=== PATIENT | male | born 1995 | race Caucasian/White ===

== ENCOUNTER → 2017-07-09 13:00 | Outpatient (CLI) | payer MEDICAID, SELFPAY ==
[2017-07-09 14:34] LABS: Absolute Lymphocyte Count 1.61 X10^3/ul (0.83-4.51); Absolute Neutrophil Count 9.3 X10^3/uL (2.0-7.7); Basophil# 0.02 X10^3/uL; Basophil% 0.2 % (0-1); Eosinophil# 0.07 X10^3/uL; Eosinophils% 0.6 % (0-5); Hematocrit 45.9 % (40-54); Hemoglobin 15.6 g/dl (13.0-16.5); Lymphocyte # 1.61 X10^3/ul (4.0); Lymphocyte % 13.3 % (19-41); Mean Corpuscular Volume 91.3 fL (80-94); Mean Platelet Vol. 10.9 fl (6.2-12.0); Monocyte# 1.12 X10^3/uL; Monocyte% 9.2 % (0-10); Neutrophil % 76.5 % (47-70); Platelet Count 203 K/mm3 (150-450); RBC Distribution Width CV 12.5 % (11.6-14.6); RBC Distribution Width SD 41.1 fl (35.1-43.9); Red Blood Count 5.03 M/mm3 (4.6-6.2); White Blood Count 12.1 K/mm3 (4.4-11.0)
[2017-07-09 14:36] LABS: POSITIVE COUNT NO; POSITIVE DIFFERENTIAL NO; POSITIVE MORPHOLOGY NO
[2017-07-09 15:19] LABS: Anion Gap 7 (5-15); BUN 12 mg/dL (7-18); BUN/Creat Ratio 13.6 RATIO (10-20); Calcium,Total 8.7 mg/dL (8.5-10.1); Chloride 104 mmol/L (98-107); Cholesterol 165 mg/dL (200); Creatinine, Serum 0.88 mg/dL (0.70-1.30); EST Glomerular Filtration Rate 115 mL/min (>60); Est Glom Filt Rate - Afr Amer 139 mL/min (>60); Glucose 65 mg/dL (74-106); High Density Lipoprotein 43 mg/dL; Potassium 3.7 mmol/L (3.5-5.1); Sodium Level 141 mmol/L (136-145); Thyroid Stim Hormone (TSH) 1.19 uIU/mL (0.358-3.74); Triglycerides 343 mg/dL; Very Low Density Lipoprotein 69 mg/dL (5-40)
== END ==
PROVIDERS: Family Provider Family Medicine; PCP Family Medicine
DX: Z79.899 Other long term (current) drug therapy (principal)
CPT/HCPCS: 36415; 80048; 80061; 84443; 85025

== ENCOUNTER 2017-09-25 01:01 | Emergency (ER) | payer MEDICAID, SELFPAY ==
[2017-09-25 01:02] VITALS: BP 133/86; PULSE 100; RESP 22; TEMP 37.2; O2SAT 93; BMI 24.7
--- NOTE | 2017-09-25 01:12 | ED.RN ---
[id number] - MOM JON'S PHONE NUMBER. CALLED, NO ANSWER, MAILBOX FULL. WILL TRY AGAIN LATER.
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
[2017-09-25] MEDS: Morphine 4 MG/ML Syringe IM (01:36)
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
[2017-09-25 02:57] VITALS: BP 121/86; PULSE 97; RESP 16; O2SAT 97
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
[2017-09-25] MEDS: HYDROmorphone 0.5 MG/0.5 ML SYRINGE IV (03:06)
[2017-09-25 03:09] VITALS: BP 126/80; PULSE 90; RESP 16; O2SAT 98
== END 2017-09-25 03:53 | disposition home or self-care (01) ==
PROVIDERS: Emergency Provider Emergency Medicine; Family Provider Family Medicine; PCP Family Medicine
DX: S06.0X9A Concussion with loss of consciousness of unspecified duration, initial encounter (principal); T07.XXXA Unspecified multiple injuries, initial encounter; V89.2XXA Person injured in unspecified motor-vehicle accident, traffic, initial encounter; Y93.9 Activity, unspecified; Y92.89 Other specified places as the place of occurrence of the external cause; Y99.9 Unspecified external cause status
CPT/HCPCS: 70450; 71045; 72125; 96372; 96374; 99284; A4216

== ENCOUNTER 2018-12-30 13:07 | Emergency (ER) | payer MEDICAID, SELFPAY ==
[2018-12-30 13:08] VITALS: BP 116/61; PULSE 81; RESP 16; TEMP 36.9; O2SAT 99; BMI 21.5
--- NOTE | 2018-12-30 14:00 | ED.RN ---
pt states his ride has an appt and he is unable to wait any longer. states he may come back to be seen later. pt not upset at time of leaving.
== END 2018-12-30 14:00 ==
LOC: ED 16:12
PROVIDERS: Emergency Provider Emergency Medicine; Family Provider Family Medicine; PCP Family Medicine
DX: M54.9 Dorsalgia, unspecified (principal)

== ENCOUNTER 2019-02-17 13:37 | Emergency (ER) | payer BC, MEDICAID, SELFPAY ==
[2019-02-17 13:37] VITALS: BP 114/53; PULSE 92; RESP 16; TEMP 36.4; O2SAT 100; BMI 22.8
--- NOTE | 2019-02-17 14:12 | ED.VISSUMM ---
- ER Visit Summary Date of Service: 02/17/19 Chief Complaint: HIV exposure History of Present Illness: The patient is a 23 M with HIV exposure. He is HIV negative as far as he knows. He was exposed less than 2 days ago from vaginal intercourse. He is not having any symptoms or problems. He denies significant medical history. Physical Examination: Afebrile and vital signs unremarkable. Exam unremarkable. Test Results: HIV test pending. Emergency Department Course and Treatment: HIV testing was performed. Patient will be treated with postexposure prophylaxis at his request for 28 days. Follow-up with the clinic as an outpatient. Return for any issues or complications. Treatment Plan: As above Disposition: Discharge Impression: 1. HIV exposure This note was generated with [employer] - is now [employer] dictation software. It may contain incorrect words, spelling, and punctuation that were not noted in review of the chart prior to signing
--- NOTE | 2019-02-17 14:14 | ED.DEP ---
ED Disposition - Plan for ED Patient: Instructions: Understanding HIV and AIDS Prescriptions: Raltegravir Potassium [Isentress] 400 mg PO BID #56 tab Prescription Printed Emtricitabine/Tenofovir (Tdf) [Truvada 200 mg-300 mg Tablet] 1 ea PO DAILY #28 tab Prescription Printed Referrals: Hollie Cueva [NON-STAFF] -
[2019-02-17] MEDS: EMTRICITABINE/TENOFOVIR 1 TABLET TABLET PO (14:37)
[2019-02-17] MEDS: RALTEGRAVIR POTASSIUM 400 MG TABLET PO (14:37)
[2019-02-17 16:43] LABS: HIV - WCH Non-Reactive (Nonreactive)
== END 2019-02-17 14:41 | disposition home or self-care (01) ==
LOC: ED 14:17
PROVIDERS: Emergency Provider Emergency Medicine
DX: Z20.6 Contact with and (suspected) exposure to human immunodeficiency virus [HIV] (principal)
CPT/HCPCS: 86703; 99283

== ENCOUNTER 2019-05-10 14:25 | Emergency (ER) | payer MEDICAID, SELFPAY ==
[2019-05-10 14:26] VITALS: BP 128/92; PULSE 93; RESP 16; TEMP 36.7; O2SAT 98; BMI 23.4
[2019-05-10] MEDS: 0.9% Normal Saline 1,000 ML 1000 ML IV (15:20)
[2019-05-10] MEDS: Morphine 2 MG/ML Syringe IV (15:21)
[2019-05-10] MEDS: Ondansetron 4 MG/2 ML Vial IV (15:21)
[2019-05-10 15:23] LABS: Absolute Lymphocyte Count 1.62 X10^3/uL (0.83-4.51); Absolute Neutrophil Count 3.7 X10^3/uL (2.0-7.7); Basophil# 0.02 X10^3/uL; Basophil% 0.3 % (0-1); Eosinophil# 0.04 X10^3/uL; Eosinophils% 0.7 % (0-5); Hematocrit 45.8 % (40-54); Hemoglobin 15.4 g/dL (13.0-16.5); Lymphocyte # 1.62 X10^3/ul (4.0); Lymphocyte % 27.7 % (19-41); Mean Corp Hgb Conc 33.6 g/dL (32-36); Mean Corpuscular Hgb 30.1 pg (27.0-32.0); Mean Corpuscular Volume 89.6 fL (80-94); Mean Platelet Vol. 10.7 fl (6.2-12.0); Monocyte# 0.47 X10^3/uL; NRBC Flagged by Analyzer 0 % (0-5); Neutrophil # 3.68 X10^3/uL (2.7-7.7); Neutrophil % 63.1 % (47-70); Platelet Count 195 K/mm3 (150-450); RBC Distribution Width CV 12.3 % (11.6-14.6); RBC Distribution Width SD 40.8 fl (35.1-43.9); Red Blood Count 5.11 M/mm3 (4.6-6.2); White Blood Count 5.8 K/mm3 (4.4-11.0)
[2019-05-10 15:35] LABS: Lipase 70 U/L (73-393)
--- NOTE | 2019-05-10 15:46 | ED.DCSUM_ITS ---
- ER Visit Summary Date of Service: 05/10/19 Chief Complaint: Hematemesis History of Present Illness: The patient is a 23 M who presents with hematemesis that began today. Patient states that he had a coughing episode and then started vomiting. Patient states he vomited a lot of blood. Patient states h e has pain over the epigastric and left upper quadrant area.Patient describes the pain as sharp. Patient denies any diarrhea, melena, or hematochezia. Patient denies any dysuria or hematuria. Patient also admits to headache and some generalized weakness. Patient admits to a cough with some shortness of breath. Patient states he does have pain up into the left side of his chest and into his left arm. Patient denies any cardiac risk factors. Physical Examination: Vital signs are stable. Patient is afebrile. Patient is in no acute distress. Oral mucosa is pink and moist. Neck is supple. Trachea is midline. There is no JVD. Heart was regular rate and rhythm. Lungs are clear and equal bilaterally. Abdomen is soft. Bowel sounds are normal. There is some mild epigastric and left upper quadrant tenderness. There is no rebound or guarding noted. Cranial nerves II through XII are intact. There are no focal motor or sensory deficits noted. Test Results: CBC and comprehensive metabolic profile were normal. Stool was negative for occult blood. EKG showed normal sinus rhythm with a rate of 83. There are no acute ST or T wave changes. PA and lateral chest x-ray was obtained. There is no acute cardiopulmonary process. This was interpreted by the radiologist and myself. Emergency Department Course and Treatment: Patient was given morphine and Zofran initially. Patient was advised of his lab results. Patient requested an HIV test because he had 1 in February and was told he needed to have it repeated in 3 months. Patient states that in February he was referred to the emergency department from the health department. This was ordered and is pending. Patient was given a prescription for Prilosec. Patient was instructed to follow-up with his primary care physician in 3 to 5 days. Patient understood and was agreeable with the plan. All questions were answered. Disposition: Discharge home Impression: Hematemesis This note was generated with [employer] dictation software. It may contain incorrect words, spelling, and punctuation that were not noted in review of the chart prior to signing ED Disposition - Plan for ED Patient: Disposition: Home or Assisted Living Diagnosis: Hematemesis of unknown etiology Instructions: GI BLEED, Upper (Stable) Prescriptions: Omeprazole [Prilosec] 20 mg PO DAILY #30 cap Prescription Printed Referrals: Care Physician,No Primary [Primary Care Provider] - Hollie Cueva [NON-STAFF] - 5-7 Days
--- NOTE | 2019-05-10 15:49 | EKG12_ITS ---
Test Reason : GI BLEED Blood Pressure : / mmHG Vent. Rate : 083 BPM Atrial Rate : 083 BPM P-R Int : 150 ms QRS Dur : 082 ms QT Int : 354 ms P-R-T Axes : 069 094 023 degrees QTc Int : 415 ms Normal sinus rhythm Rightward axis Borderline ECG Confirmed by HARPER ROLLINS, MARTINEZ ([id number]), news editor ROSARIO YO ([id number]) on 05/12/2019 1:13:18 PM Referred By: MECHELLE Confirmed By:SREEDHAR SALEEM MD
--- NOTE | 2019-05-10 16:05 | RAD_ITS ---
STUDY: X-RAY CHEST REASON FOR EXAM: Male, 23 years old. GI BLEED -- PT ARRIVES WITH A and quot;LOT OF BLOOD and quot; IN HIS EMESIS TECHNIQUE: PA and lateral COMPARISON: None. FINDINGS: There is less than optimal inspiratory effort however the lungs are clear. There is no demonstrated pleural abnormality. Normal size heart. Normal mediastinum and faustina. Normal visualized pulmonary arteries. Normal visualized aortic arch and descending thoracic aorta. Normal visualized thoracic spine. Normal visualized ribs, clavicles, and shoulders. There is no demonstrated abnormality of the visualized soft tissue structures of the upper abdomen. RAD/Chest PA and Lateral IMPRESSION: Diminished inspiratory effort. No acute disease Electronically Signed: Sincere Linda MD at 16:28 EST , Service support ,
[2019-05-10 16:13] LABS: ALB/GLOB Ratio 1.2 RATIO (0.9-2.4); AST(SGOT) 7 U/L (15-37); Alanine Aminotransfer ALT/SGPT 19 U/L (16-61); Albumin, Serum 4.2 g/dL (3.2-5.0); Alkaline Phosphatase 86 U/L (45-117); Anion Gap 4 (5-15); BUN 12 mg/dL (7-18); BUN/Creat Ratio 12.8 RATIO (10-20); Calcium,Total 9.1 mg/dL (8.5-10.1); Chloride 106 mmol/L (98-107); Creatinine, Serum 0.94 mg/dL (0.70-1.30); EST Glomerular Filtration Rate 105 mL/min (>60); Est Glom Filt Rate - Afr Amer 128 mL/min (>60); Globulin 3.4 g/dL (2.2-4.2); Glucose 78 mg/dL (74-106); Potassium 4.1 mmol/L (3.5-5.1); Protein, Total 7.6 g/dL (6.4-8.2); Sodium Level 141 mmol/L (136-145)
[2019-05-10 16:54] VITALS: BP 102/59; PULSE 82; RESP 18
[2019-05-10 18:24] LABS: HIV - WCH Non-Reactive (Nonreactive)
== END 2019-05-10 16:55 | disposition home or self-care (01) ==
PROVIDERS: Emergency Provider Emergency Medicine
DX: K92.0 Hematemesis (principal); F31.9 Bipolar disorder, unspecified; Z72.0 Tobacco use; Z79.899 Other long term (current) drug therapy
CPT/HCPCS: 71046; 80053; 82274; 83690; 85025; 86703; 93005; 96361; 96374; 96375; 99285; J7030; J2405

== ENCOUNTER 2019-06-21 17:49 | Emergency (ER) | payer MEDICAID, SELFPAY ==
[2019-06-21 17:50] VITALS: BP 130/83; PULSE 110; RESP 20; TEMP 37.2; O2SAT 95; BMI 22.7
--- NOTE | 2019-06-21 18:43 | ED.VIS.GEN ---
History of Present Illness Chief Complaint: General Illness Detail of Chief Complaint: Headache, sinus pressure, short of breath Informant: Patient Onset: Weeks Context: Gradual Onset Current Severity: Moderate Maximum Severity: Moderate Narrative: Patient presents with a 1/2-week history of gradual onset URI symptoms. He states today seems to be worse. He complains of facial pain and headache. Has had some nausea and some dry heaves. He does have mild cough. He does not know if he had a fever. Patient states he has trouble breathing through his nose and has been breathing through his mouth. He has not taken anything today for his symptoms. Past Medical History - Allergies and Home Meds Allergies/Adverse Reactions: Allergies Penicillins Allergy (Verified 06/21/19 17:51) Hives Primary Care Physician: Care Physician,No Primary [Primary Care Provider] - Past Medical History: - - Psychiatric history Smoking Status: Current every day smoker Review of Systems General: Denies: Chills Eyes: Denies: Visual changes - bilaterally ENT: Reports: - - Facial pressure and head congestion Cardiovascular: Denies: Chest pain Respiratory: Reports: Dyspnea, Cough. Denies: Sputum Gastrointestinal: Reports: Nausea, Vomiting - Dry heaves. Denies: Abdominal pain Genitourinary: Denies: Dysuria Musculoskeletal: Denies: Extremity Pain Skin: Denies: Rash Neurological: Reports: Headache. Denies: Weakness, Parasthesia Allergy: Denies: Uticaria Physical Exam Vital Signs/Narrative: Vital Signs Temp Pulse Resp BP Pulse Ox 06/21/19 17:50 98.9 F 110 H 20 H 130/83 H 95 Inital Vital Signs reviewed: Yes General: Well nourished, Well developed Head: Normocephalic, Atraumatic Eyes: Perrl, EOMI ENT: Moist mucous membranes, TM's clear, - - Tenderness palpation over the frontal and maxillary sinuses bilaterally. Neck: - - No meningismus Cardiovascular: Regular rate, Regular rhythm Respiratory: No distress, CTA bilaterally Abdomen: Soft, Nontender Extremities: Nontender Skin: Normal color Neurological: Alert, Oriented x3, Normal Strength, Normal Sensation Psychological: Normal affect Diagnostic/Tx/Re-eval - Medical Decision Making Patient was given Toradol, Reglan, Benadryl, and IV fluids. He was given a dose of p.o. Zithromax. On repeat evaluation he is resting comfortably. Headache is improving. He will be given 4 additional days of Zithromax for sinusitis. ED Disposition - Plan for ED Patient: Disposition: Home or Assisted Living Diagnosis: Sinusitis Instructions: SINUSITIS, Abx Tx Prescriptions: Azithromycin [Zithromax] 250 mg PO DAILY #4 tab Transmission Status: Pending to [facility] Referrals: Hermann Patterson DO [STAFF PHYSICIAN] - As Needed
[2019-06-21 19:04] VITALS: BP 126/91; PULSE 82; O2SAT 99
[2019-06-21] MEDS: Ketorolac 30 MG/ML Syringe IV (19:11)
[2019-06-21] MEDS: 0.9% Normal Saline 1,000 ML 1000 ML IV (19:11)
[2019-06-21] MEDS: DiphenhydrAMINE 50 MG/ML Syringe 25 MG IV (19:12)
[2019-06-21] MEDS: Metoclopramide 10 MG/2 ML Vial IV (19:13)
[2019-06-21] MEDS: Azithromycin 250 MG Tablet 500 MG PO (20:23)
[2019-06-21 20:52] VITALS: BP 127/57; PULSE 80; RESP 16; O2SAT 98
== END 2019-06-21 20:54 | disposition home or self-care (01) ==
PROVIDERS: Emergency Provider Emergency Medicine
DX: J32.1 Chronic frontal sinusitis (principal); J32.0 Chronic maxillary sinusitis; F17.200 Nicotine dependence, unspecified, uncomplicated
CPT/HCPCS: 96361; 96374; 96375; 99284; J7030; A4216

== ENCOUNTER 2020-12-11 22:20 | Emergency (ER) | payer MEDICAID, SELFPAY ==
[2020-12-11 22:21] VITALS: BP 129/94; PULSE 81; RESP 16; TEMP 36.3; O2SAT 97; BMI 23.6
--- NOTE | 2020-12-11 22:50 | EX.ED.UPPERE ---
HPI History of Present Illness Chief Complaint: Laceration Informant: patient Occured/Mechanism Mechanism/Context: Yes other see comment below Comment: Accidentally cut with a kitchen knife while cutting green onions Onset/Context/Timing Context: Sudden Onset Timing: Continuous Quality of Pain: - (sore) Location: Left index finger tip Current Severity: Mild Maximum Severity: Moderate Worsened by: Palpation Relieved by: Leaving alone Associated Symptoms Associated Symptoms: Negative for Parasthesia, Weakness and Loss of Funtion Narrative Narrative: [id number] male accidentally cut his finger using a kitchen knife. Tetanus Immunization: 5-10 years [facility] Medical History Anxiety Bipolar 1 disorder Manic bipolar I disorder PTSD (post-traumatic stress disorder) Home Medications quetiapine 300 - 400 mg PO QHS PRN PRN 09/25/17 [History Last Taken Unknown] bupropion HCl 150 mg PO DAILY 12/11/20 [History Last Taken Unknown] buspirone 10 mg PO DAILY 12/11/20 [History Last Taken Unknown] divalproex 500 mg PO BID 12/11/20 [History Last Taken Unknown] Allergy/AdvReac Type Severity Reaction Status Date / Time Penicillins Allergy Hives Verified 06/21/19 17:51 Social History Smoking Status: Current every day smoker tobacco type: e-cigarettes ROS ROS ED Constitutional Constitutional ED: Denies chills or fever(s) Musculoskeletal Musculoskeletal: Reports extremity pain; Denies neck pain Integumentary Reports as per HPI and wounds; Denies Abrasions or rash Neurologic Neurologic: Denies paresthesias or weakness EXAM Physical Exam Const Vital Signs: 12/11/20 22:21 Temperature 97.3 F L Temperature Source Temporal Pulse Rate 81 Respiratory Rate 16 Blood Pressure 129/94 H Blood Pressure Mean 105 Pulse Ox 97 Oxygen Delivery Method Room Air Positive well nourished and well developed General Appearance ED: well developed and NAD Neck full ROM and supple Back/Spine normal ROM and normal to inspection Extremity Extremity Narrative: Mildly tender at left index fingertip avulsion, no limited range of motion. FDS, FDP, extensor all intact. No other injuries. Neuro oriented x3, no focal motor deficits and no sensory deficits noted Sensorium / Orientation: alert Psych mental status grossly normal and thought process normal Skin Skin Narrative: Epidermal skin avulsion at the left fingertip, radial aspect including part of the nail in the distal aspect of the nailbed but no lacerations to repair. Dermis intact. Evidence of recent bleeding, no active. Rashes: no rashes MDM MDM MDM Narrative Medical decision making narrative: This is an epidermal avulsion injury, there is no laceration to repair. Patient was reassured, his wound was cleansed and dressed with bacitracin, he was given appropriate discharge instructions. Discharge Plan Triage Chief Complaint: Laceration ED Provider: Carlos Eduardo Hernandez Dx/Rx/DC Orders Clinical Impression: Avulsion of skin of index finger Instructions: ED Skin Avulsion Prescriptions: No Action quetiapine 100 MG tablet 300 - 400 mg PO QHS PRN PRN (Reason: Sleep) RF: 0 divalproex 500 mg tablet,delayed release (DR/EC) 500 mg PO BID RF: 0 buspirone 10 mg tablet 10 mg PO DAILY RF: 0 bupropion HCl 150 mg tablet extended release 24 hr 150 mg PO DAILY RF: 0 Primary Care Provider: Care Physician,No Primary Referrals: Hollie Cueva [NON-STAFF] - As Needed Care Physician,No Primary [Primary Care Provider] - Activity Restrictions/Additional Instructions: keep covered w/ antibiotic ointment such as Neosporin until no more seeping/oozing of fluid or blood Disposition Disposition: Home, Self Care
== END 2020-12-11 23:18 | disposition home or self-care (01) ==
LOC: ED 23:06
PROVIDERS: Emergency Provider Emergency Medicine
DX: S61.301A Unspecified open wound of left index finger with damage to nail, initial encounter (principal); F41.9 Anxiety disorder, unspecified; F31.9 Bipolar disorder, unspecified; F17.290 Nicotine dependence, other tobacco product, uncomplicated; Z79.899 Other long term (current) drug therapy; W26.0XXA Contact with knife, initial encounter; Y93.G1 Activity, food preparation and clean up; Y92.000 Kitchen of unspecified non-institutional (private) residence as the place of occurrence of the external cause; Y99.8 Other external cause status
CPT/HCPCS: 99282

== ENCOUNTER → 2020-12-12 | Outpatient (CLI) | payer MEDICAID, SELFPAY | END | disposition home or self-care (01) | LOC: LABSPEC 16:30 | PROVIDERS: Visit Provider Physician Assistant | DX: U07.1 COVID-19 (principal) | CPT/HCPCS: 87635; U0005; U0003 ==

== ENCOUNTER 2021-05-07 02:40 | Emergency (ER) | payer MEDICAID, SELFPAY ==
[2021-05-07 02:41] VITALS: BP 151/83; PULSE 95; RESP 17; TEMP 36.7; O2SAT 100; BMI 23.4
--- NOTE | 2021-05-07 03:03 | RAD_ITS ---
STUDY: X-RAY CHEST REASON FOR EXAM: Male, 25 years old. Chest pain. TECHNIQUE: PA and lateral COMPARISON: 05/10/2019 CXR FINDINGS: No apparent pneumothorax, pneumonia, pleural effusion, or edema. Cardiac silhouette, faustina and mediastinal contours are within normal limits. No acute osseous abnormality. No evidence of free air under the diaphragm. RAD/Chest PA and Lateral IMPRESSION: Negative chest radiograph. Electronically Signed: Steve Montano MD at 3:47 EST Reading Location ID and State: [address] [place] Tel , Service support ,
--- NOTE | 2021-05-07 03:03 | EKG12_ITS ---
Test Reason : CP Blood Pressure : / mmHG Vent. Rate : 073 BPM Atrial Rate : 073 BPM P-R Int : 168 ms QRS Dur : 088 ms QT Int : 368 ms P-R-T Axes : 066 044 041 degrees QTc Int : 405 ms Normal sinus rhythm Normal ECG Confirmed by MIRA ERAZO MD ([id number]), newspaper photo editor GISSEL AGUIRRE ([id number]) on 05/08/2021 9:09:09 AM Referred By: RAQUEL Confirmed By:MIRA ERAZO MD
[2021-05-07 03:16] LABS: Absolute Lymphocyte Count 4.15 X10^3/uL (0.83-4.51); Absolute Neutrophil Count 5.9 X10^3/uL (2.0-7.7); Basophil# 0.04 X10^3/uL; Basophil% 0.4 % (0-1); Eosinophils% 0.9 % (0-5); Hematocrit 44.3 % (40-54); Hemoglobin 14.9 g/dL (13.0-16.5); Lymphocyte # 4.15 X10^3/ul (0.83-4.51); Lymphocyte % 37.2 % (19-41); Mean Corp Hgb Conc 33.6 g/dL (32-36); Mean Corpuscular Hgb 29.9 pg (27.0-32.0); Mean Platelet Vol. 11.1 fl (6.2-12.0); Monocyte# 0.94 X10^3/uL; Monocyte% 8.4 % (0-10); NRBC Flagged by Analyzer 0 % (0-5); Neutrophil # 5.92 X10^3/uL (2.7-7.7); Neutrophil % 52.9 % (47-70); Platelet Count 251 K/mm3 (150-450); RBC Distribution Width CV 11.9 % (11.6-14.6); RBC Distribution Width SD 38.5 fl (35.1-43.9); Red Blood Count 4.98 M/mm3 (4.6-6.2); White Blood Count 11.2 K/mm3 (4.4-11.0)
[2021-05-07 03:32] LABS: Anion Gap 10 (5-15); BUN 11 mg/dL (7-18); BUN/Creat Ratio 10.6 RATIO (10-20); Calcium,Total 9.1 mg/dL (8.5-10.1); Chloride 104 mmol/L (98-107); Creatinine, Serum 1.04 mg/dL (0.70-1.30); EST Glomerular Filtration Rate 92 mL/min (>60); Est Glom Filt Rate - Afr Amer 112 mL/min (>60); Estimated Creatinine Clearance 112.11 ml/min; Glucose 102 mg/dL (74-106); Magnesium 2.2 mg/dL (1.6-2.6); Potassium 3.1 mmol/L (3.5-5.1); Sodium Level 141 mmol/L (136-145); Troponin-I HS < 3 pg/mL (3.0-78.0)
--- NOTE | 2021-05-07 04:01 | EX.ED.DYSGE1 ---
HPI History of Present Illness Chief Complaint: Chest Pain Narrative Narrative: Patient is a 25-year-old male who states he has been feeling palpitations for the past week intermittently. He states with this he has noticed some left-sided chest pain. He denies any trauma or excessive activity prior to the pain beginning. He denies any recent travel or surgery or history of DVT/PE. He does admit to smoking and states he does marijuana but denies any other illicit drug. He states that he feels like his symptoms have slowly been worsening and secondary to his presents for evaluation [facility] Medical History Anxiety Bipolar 1 disorder Manic bipolar I disorder PTSD (post-traumatic stress disorder) Home Medications quetiapine [Seroquel] 200 mg PO QHS PRN PRN 09/25/17 [History Last Taken Unknown] Allergy/AdvReac Type Severity Reaction Status Date / Time Penicillins Allergy Hives Verified 05/07/21 02:46 Social History Smoking Status: Current every day smoker tobacco type: e-cigarettes ROS ROS ED Constitutional Constitutional ED: Denies chills or fever(s) ENT ENT ED: Denies sore throat Cardiovascular Cardiovascular: Reports chest pain, palpitations and racing heartbeat Respiratory/Chest Respiratory/Chest: Denies cough or dyspnea Gastrointestinal Gastrointestinal: Denies abdominal pain, diarrhea, nausea or vomiting Genitourinary Genitourinary ED: Denies dysuria Musculoskeletal Musculoskeletal: Denies myalgias Integumentary Denies rash Neurologic Neurologic: Denies headache(s) Hematologic/Lymphatic Hematologic/Lymphatic: Denies easy bleeding or easy bruising EXAM Physical Exam Const Vital Signs: 05/07/21 02:41 Temperature 98.1 F Temperature Source Oral Pulse Rate 95 Respiratory Rate 17 Blood Pressure 151/83 H Blood Pressure Mean 105 Pulse Ox 100 Oxygen Delivery Method Room Air Positive well nourished and well developed General Appearance ED: well developed HEENT Reports moist mucous membranes Eyes PERRL and EOMs intact bilaterally Neck supple and no JVD Chest Wall Chest Narrative: There is reproducible left anterior chest wall pain with palpation rib regions 5-9 that the patient states is the same pain he has been experiencing. No overlying soft tissue changes to suggest trauma or infection no bony deformity or crepitance Resp normal respiratory effort and clear to auscultation bilaterally Cardio regular rate and regular rhythm Rate: other Other Details: Radial pulses are plus 2 out of 4 bilaterally are equal and symmetric GI normal to inspection, nondistended, normoactive bowel sounds, non-tender, non-distended and no masses Auscultation: normoactive bowel sounds Palpation: soft Extremity normal to inspection Extremity Narrative: No edema no pitting edema negative Homans' sign bilaterally Neuro oriented x3 and CN's II-XII intact bilaterally Sensorium / Orientation: alert Motor Exam: strength 5/5 throughout Psych mental status grossly normal Skin no rashes or lesions noted MDM MDM MDM Narrative Medical decision making narrative: Patient presented to the ER in no acute distress with stable vitals and is low risk for cardiac disease. He reported palpitations prior to his pain beginning and also had reproducible pain on palpation. With his report of palpitations and chest pain I did elect to perform a basic cardiac work-up. Labs revealed no clinically significant findings. EKG is sinus rhythm. As patient smokes there is concern his chest pain could be lung and pathology so a two-view chest x-ray was ordered which was normal. 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 On reevaluation the patient reports he is feeling better and therefore at this time with resolution of symptoms and negative work-up as well as the fact he is low risk for cardiac disease he will be discharged at this time Lab Data Attestation: I reviewed the patient's lab results. Labs: Laboratory Results - last 24 hr 05/07/21 05/07/21 02:45 02:45 WBC 11.2 H RBC 4.98 Hgb 14.9 Hct 44.3 MCV 89.0 MCH 29.9 MCHC 33.6 RDW Std Deviation 38.5 RDW Coeff of Ryan 11.9 Plt Count 251 MPV 11.1 Immature Gran % (Auto) 0.200 Neut % (Auto) 52.9 Lymph % (Auto) 37.2 [place] % (Auto) 8.4 Eos % (Auto) 0.9 Baso % (Auto) 0.4 Absolute Neuts (auto) 5.9 Absolute Lymphs (auto) 4.15 Nucleated RBC % 0 Sodium 141 Potassium 3.1 L Chloride 104 Carbon Dioxide 27.0 Anion Gap 10 BUN 11 Creatinine 1.04 Estim Creat Clear Calc 112.11 Est GFR (MDRD) Af Amer 112 Est GFR (MDRD) Non-Af 92 BUN/Creatinine Ratio 10.6 Glucose 102 Calcium 9.1 Magnesium 2.2 Troponin I High Sens < 3 L Radiography Diagnostic Testing: Clinical Impression(s) from Imaging Studies Chest X-Ray 05/07/21 03:03 IMPRESSION: Negative chest radiograph. Electronically Signed: Steve Montano MD at 3:47 EST Reading Location ID and State: [facility] / [place] Tel , Service support , Discharge Plan Triage Chief Complaint: Chest Pain ED Provider: Chago Landers Dx/Rx/DC Orders Clinical Impression: Heart palpitations, Chest wall pain Instructions: ED Chest Pain, Noncardiac, ED Palpitations Prescriptions: No Action quetiapine [Seroquel] 100 MG tablet 200 mg PO QHS PRN PRN (Reason: Sleep) RF: 0 Primary Care Provider: Care Physician,No Primary Referrals: Rafael Montejo MD [STAFF PHYSICIAN] - 1 Week if not improving Care Physician,No Primary [Primary Care Provider] - Activity Restrictions/Additional Instructions: Please discuss a Holter monitor with your family doctor if your symptoms of palpitations persist Disposition Disposition: Home, Self Care
[2021-05-07 04:07] VITALS: BP 107/70; PULSE 72; RESP 18; O2SAT 95
== END 2021-05-07 04:11 | disposition home or self-care (01) ==
PROVIDERS: Emergency Provider Emergency Medicine; Visit Provider Emergency Medicine
DX: R07.89 Other chest pain (principal); F31.9 Bipolar disorder, unspecified; F43.10 Post-traumatic stress disorder, unspecified; F41.9 Anxiety disorder, unspecified; R00.2 Palpitations; F17.290 Nicotine dependence, other tobacco product, uncomplicated; Z79.899 Other long term (current) drug therapy
CPT/HCPCS: 71046; 80048; 83735; 84484; 85025; 93005; 99283; A4216

== ENCOUNTER 2021-06-28 03:10 | Emergency (ER) | payer MEDICAID, SELFPAY ==
[2021-06-28 03:10] VITALS: BP 161/127; PULSE 155; RESP 18; TEMP 36.4; O2SAT 98; BMI 21.7
--- NOTE | 2021-06-28 03:18 | EKG12_ITS ---
Test Reason : CP Blood Pressure : / mmHG Vent. Rate : 135 BPM Atrial Rate : 135 BPM P-R Int : 166 ms QRS Dur : 086 ms QT Int : 280 ms P-R-T Axes : 066 046 051 degrees QTc Int : 420 ms Sinus tachycardia Otherwise normal ECG Confirmed by HARPER ROLLINS, MARTINEZ ([id number]), writer editor ZARA ACOSTA ([id number]) on 06/30/2021 11:16:39 A M Referred By: CHANTAL Confirmed By:SREEDHAR SALEEM MD
--- NOTE | 2021-06-28 03:23 | EDS_ITS ---
HPI History of Present Illness Chief Complaint: Palpitations Informant: patient Onset/Context/Timing Onset: Today and Hours Activity at onset: sudden Timing: Continuous Current Severity: Mild Maximum Severity: Mild Associated Symptoms: Positive for Palpitations; Negative for Nausea, Vomiting, Diaphoresis, Dyspnea, Cough, Fever, Lightheadedness and Acid Reflux Narrative Narrative: 25 old male history of anxiety, bipolar and PTSD. He does smoke marijuana. States that his girlfriend's father they are helping him because he has a history of addiction. They found a bag of white residual material in his home. The patient tasted to see what it was eating some other than methamphetamines. Since that time he had palpitations. Denies chest pain. No LOC. He denies any recent hospitalization. No recent illness. Prior Similar Symptoms: Yes Recent Illness/Hospitalization: No CVD Risk Factors: Positive for Smoking; Negative for Hypertension, Diabetes and Hypercholesterolemia PE Risk Factors: Negative for Recent Travel/Surgery, Recent Immobilization, Prior DVT or PE, Cancer and OCP + Smoking + >/=35 TAD Risk Factors: Negative for Marfan's Syndrome and Hypertension [facility] Medical History Anxiety Bipolar 1 disorder Manic bipolar I disorder PTSD (post-traumatic stress disorder) Home Medications quetiapine [Seroquel] 150 mg PO QHS PRN PRN 09/25/17 [History Last Taken Unknown] Allergy/AdvReac Type Severity Reaction Status Date / Time Penicillins Allergy Hives Verified 06/28/21 03:14 Social History Smoking Status: Current every day smoker tobacco type: e-cigarettes ROS ROS ED ROS Narrative Denies. Review of Systems ROS Unobtainable: Denies due to encephalopathy Constitutional Constitutional ED: Denies fever(s) Eyes Eyes: Denies none ENT ENT ED: Denies ear pain Cardiovascular Cardiovascular: Reports as per HPI, palpitations and racing heartbeat; Denies chest pain Respiratory/Chest Respiratory/Chest: Denies cough or dyspnea Gastrointestinal Gastrointestinal: Denies abdominal pain, diarrhea, nausea or vomiting Genitourinary Genitourinary ED: Denies dysuria Musculoskeletal Musculoskeletal: Denies myalgias Integumentary Denies rash Neurologic Neurologic: Denies headache(s) Psychiatric Psychiatric: Denies depression Endocrine Endocrinology: Denies polyuria Hematologic/Lymphatic Hematologic/Lymphatic: Denies easy bruising Allergic/Immunologic Allergic/Immunologic ED: Denies urticaria EXAM Physical Exam Narrative Exam Narrative: 25-year-old male. Vital signs are stable other than his elevated blood pressure 161/127. And his heart rate of 155. Pulse ox 90% on room air. Afebrile. He does not look septic or toxic. He is tolerating the accelerated heart rate and blood pressure well. During my exam his heart rates primarily in the 1 30-1 40 range. He denies any chest pain. H EENT exam unremarkable. Pupils are about 2 mm bilaterally. Neck nontender. No JVD. No lymphadenopathy. Lungs clear to auscultation bilaterally. Heart tachycardic rate about 135. No murmur. Chest wall nontender. Abdomen soft nontender. Moving all 4 extremities. Neurovascularly intact. Normal 5-5 radio aerial installer strength. Dorsi plantarflexion intact. Calves nontender. No edema. No track gardiner in his upper extremities. Neurologically is awake and alert with no focal motor deficits. Back unremarkable. Skin unremarkable except for tattoos. Const Vital Signs: 06/28/21 03:10 06/28/21 03:15 Temperature 97.6 F L Temperature Source Temporal Pulse Rate 155 H Respiratory Rate 18 Respiratory Effort Normal Non-Labored Blood Pressure 161/127 H Blood Pressure Mean 138 Pulse Ox 98 Oxygen Delivery Method Room Air Positive well nourished and well developed; Negative for obese, cachectic, contractures or unkempt General Appearance ED: well developed and NAD; Negative for unkempt, cachectic, contractures or pallor Nutritional Appearance: Negative for cachectic or obese HEENT Reports moist mucous membranes normocephalic and atraumatic; Negative for trauma or tenderness Eyes PERRL and EOMs intact bilaterally Neck no lymphadenopathy, supple and no JVD General: Negative for tenderness Chest Wall inspection of chest normal and palpation of chest normal Resp normal respiratory effort and clear to auscultation bilaterally Effort and Inspection: respiratory distress Auscultation: Negative for rales, rhonchi or wheezes Cardio regular rhythm, S1 normal heart sound, S2 normal heart sound and no murmurs; Negative for regular rate Rate: tachycardic GI normal to inspection, nondistended, normoactive bowel sounds, soft to palpation, non-distended and no masses; Negative for hepatosplenomegaly Auscultation: Negative for hyperactive bowel sounds Palpation: Negative for splenomegaly or mass Back/Spine no CVA tenderness General Back: Negative for CVA tenderness Extremity normal to inspection General Extremety ED: Negative for edema or tenderness General Extremity: Negative for edema Neuro oriented x3 Sensorium / Orientation: awake, alert, oriented to person, oriented to place and oriented to time Motor Exam: strength 5/5 throughout Psych mental status grossly normal Appearance: Negative for unkempt Attitude: No agitated Mood & Affect: anxious; Negative for depressed or tearful Skin no rashes or lesions noted and no wounds General Skin Exam: Negative for jaundice or pallor MDM MDM MDM Narrative Medical decision making narrative: 25-year-old male reportedly tasted an unknown substance that he thinks was some type of drug possibly methamphetamine. Presents tachycardic. Denies chest pain. Other than tachycardia and hy pertension his exam otherwise is unremarkable. He will be given IV Ativan. Screening labs will be obtained. Repeat exam at 4 AM the patient is doing well. His heart rate is 103. His blood pressure is 143/87 both have improved significantly. He is resting comfortably. He will be observed and then discharged home after a while. Lab Data Attestation: I reviewed the patient's lab results. Lab results narrative: CBC normal. White count of 6. H&H of 14 and 41. Chemistries unremarkable except for potassium of 3.0. Normal gap at 9. BUN of 5 and creatinine of 1. Glucose 171. Labs: Laboratory Results - last 24 hr 06/28/21 06/28/21 03:15 03:15 WBC 6.3 RBC 4.76 Hgb 14.9 Hct 41.6 MCV 87.4 MCH 31.3 MCHC 35.8 RDW Std Deviation 38.0 RDW Coeff of Ryan 11.8 Plt Count 214 MPV 11.3 Sodium 139 Potassium 3.0 L Chloride 106 Carbon Dioxide 24.0 Anion Gap 9 BUN 5 L Creatinine 1.01 Estim Creat Clear Calc 108.96 Est GFR (MDRD) Af Amer 115 Est GFR (MDRD) Non-Af 95 BUN/Creatinine Ratio 5.0 L Glucose 171 H Calcium 8.9 Rhythm Strip Rhythm Strip: Sinus Tach Rate: 135 Ectopy: None EKG Initial EKG: Attestation: I personally reviewed and interpreted this EKG as follows: Interpretation: No Acute Injury Pattern and Sinus Tachycardia Comments: Sinus tachycardia rate of 135. No acute signs of DC nor ischemia. Discharge Plan Triage Chief Complaint: Palpitations ED Provider: Doroteo Crowell Dx/Rx/DC Orders Clinical Impression: Heart palpitations, Tachycardia Prescriptions: No Action quetiapine [Seroquel] 100 MG tablet 150 mg PO QHS PRN PRN (Reason: Sleep) RF: 0 Primary Care Provider: Care Physician,No Primary Referrals: Armond Aparicio MD [NON-STAFF] - 3-5 Days if not improving Care Physician,No Primary [Primary Care Provider] - Activity Restrictions/Additional Instructions: Follow-up with your primary care physician as needed. Return if feeling worse. Never, ever try or tased an unknown substance. Disposition Disposition: Home, Self Care
[2021-06-28] MEDS: LORazepam 2 MG/ML Syringe 1 MG IV (03:27)
[2021-06-28 03:29] LABS: Hematocrit 41.6 % (40-54); Hemoglobin 14.9 g/dL (13.0-16.5); Mean Corp Hgb Conc 35.8 g/dL (32-36); Mean Corpuscular Hgb 31.3 pg (27.0-32.0); Mean Corpuscular Volume 87.4 fL (80-94); Mean Platelet Vol. 11.3 fl (6.2-12.0); Platelet Count 214 K/mm3 (150-450); RBC Distribution Width CV 11.8 % (11.6-14.6); Red Blood Count 4.76 M/mm3 (4.6-6.2); White Blood Count 6.3 K/mm3 (4.4-11.0)
[2021-06-28 03:51] LABS: Anion Gap 9 (5-15); BUN 5 mg/dL (7-18); Calcium,Total 8.9 mg/dL (8.5-10.1); Chloride 106 mmol/L (98-107); Creatinine, Serum 1.01 mg/dL (0.70-1.30); EST Glomerular Filtration Rate 95 mL/min (>60); Est Glom Filt Rate - Afr Amer 115 mL/min (>60); Estimated Creatinine Clearance 108.96 ml/min; Glucose 171 mg/dL (74-106); Sodium Level 139 mmol/L (136-145)
[2021-06-28 04:38] VITALS: BP 99/62; PULSE 72; RESP 16; O2SAT 97
== END 2021-06-28 05:03 | disposition home or self-care (01) ==
PROVIDERS: Emergency Provider Emergency Medicine; Visit Provider Emergency Medicine
DX: R00.2 Palpitations (principal); F31.9 Bipolar disorder, unspecified; I10 Essential (primary) hypertension; F41.9 Anxiety disorder, unspecified; F17.290 Nicotine dependence, other tobacco product, uncomplicated; F43.10 Post-traumatic stress disorder, unspecified; Z79.899 Other long term (current) drug therapy
CPT/HCPCS: 80048; 85027; 93005; 96374; 99281; 99282; 99283; 99285; A4216

== ENCOUNTER 2021-06-28 18:37 | Emergency (ER) | payer MEDICAID, SELFPAY ==
[2021-06-28 18:39] VITALS: BP 128/79; PULSE 87; RESP 17; TEMP 36.7; O2SAT 94; BMI 21.7
--- NOTE | 2021-06-28 19:23 | EDS_ITS ---
HPI History of Present Illness Chief Complaint: Palpitations Narrative Narrative: 25-year-old male presenting with palpitations. He states he has a history of anxiety and has been taking only half of his Seroquel because it makes him sleep too long. Patient sees a counselor for this. He has no primary care. Patient states that he was seen earlier today with similar symptoms at that point he was having tachycardia. It was thought earlier that maybe he ingested something that caused him to be tachycardic. Now he was saying that he was on a fast for 4 days eating [place] and drinking only water. Patient was tachycardic earlier when seen but denied he is not having a racing heartbeat. He is not had a fever or cough. He was told that he might have a parasite from the [place] and he is concerned it might be eating his brain. He is not having dizziness, lightheadedness, visual complaints, nausea, vomiting. PFSH PFSH Medical History Anxiety Bipolar 1 disorder Manic bipolar I disorder PTSD (post-traumatic stress disorder) Home Medications quetiapine [Seroquel] 150 mg PO QHS PRN PRN 09/25/17 [History Last Taken Unknown] hydroxyzine HCl 25 mg PO QHS #30 tab 06/28/21 [Rx Last Taken Unknown] Allergy/AdvReac Type Severity Reaction Status Date / Time Penicillins Allergy Hives Verified 06/28/21 18:39 Social History Smoking Status: Current every day smoker tobacco type: cigarettes and e- cigarettes ROS ROS ED Constitutional Constitutional ED: Denies chills or fever(s) Eyes Eyes: Denies blurry vision ENT ENT ED: Denies rhinorrhea or sore throat Cardiovascular Cardiovascular: Reports palpitations Respiratory/Chest Respiratory/Chest: Denies cough or dyspnea Gastrointestinal Gastrointestinal: Denies abdominal pain, nausea or vomiting Genitourinary Genitourinary ED: Denies dysuria or hematuria Musculoskeletal Musculoskeletal: Denies arthralgias, back pain, myalgias or neck pain Integumentary Denies rash Neurologic Neurologic: Denies headache(s), paresthesias or weakness Psychiatric Psychiatric: Reports anxiety; Denies suicidal ideation or suicidal thoughts EXAM Physical Exam Const Vital Signs: 06/28/21 18:39 Temperature 98.1 F Temperature Source Temporal Pulse Rate 87 Respiratory Rate 17 Blood Pressure 128/79 H Blood Pressure Mean 95 Pulse Ox 94 Oxygen Delivery Method Room Air Positive well developed General Appearance ED: well developed and NAD; Negative for pallor HEENT Reports moist mucous membranes normocephalic and atraumatic Eyes PERRL and EOMs intact bilaterally General Eye ED: Negative for pale conjunctiva or scleral icterus Neck no lymphadenopathy and supple Resp normal respiratory effort Effort and Inspection: respiratory distress Cardio regular rate and regular rhythm Neuro oriented x3 and CN's II-XII intact bilaterally Sensorium / Orientation: awake and alert Motor Exam: strength 5/5 throughout Psych mental status grossly normal Mood & Affect: anxious Skin no rashes or lesions noted General Skin Exam: Negative for jaundice or pallor MDM MDM MDM Narrative Medical decision making narrative: Patient presenting with similar symptoms to earlier when he was seen however his symptoms have actually improved. He is no longer tachycardic. We I did review his lab work which was done at about 3 AM this morning. It was within normal limits with exception of a low potassium at 3.0. He cannot recall if this was replaced. He did not appear to have a chest x-ray done earlier. I offered to do 1 however he states he is probably fine and this is likely due to anxiety. I did replete his potassium with 40 mEq. He is to eat potassium rich foods. I did offer to give him hydroxyzine because he stating that his Seroquel is not helping him sleep or it makes him sleep too much. I will give him this at bedtime. I do not believe he needs repeat lab work. Patient will follow up with his counselor as this is likely anxiety. Impression: 1. Anxiety 2. palpitations 3. Hypokalemia Discharge Plan Triage Chief Complaint: Palpitations ED Provider: Luis Chan Dx/Rx/DC Orders Instructions: ED Hypokalemia, ED Palpitations, ED Potassium-Rich Foods Prescriptions: New hydroxyzine HCl 25 mg tablet 25 mg PO QHS Qty: 30 RF: 0 No Action quetiapine [Seroquel] 100 MG tablet 150 mg PO QHS PRN PRN (Reason: Sleep) RF: 0 Primary Care Provider: Care Physician,No Primary Referrals: Andre Noe MD [STAFF PHYSICIAN] - As Needed Care Physician,No Primary [Primary Care Provider] - Disposition Disposition: Home, Self Care
[2021-06-28] MEDS: hydrOXYzine PAM 25 MG Capsule PO (19:31)
[2021-06-28] MEDS: Potassium Chloride Oral Tablet 20 MEQ 40 MEQ PO (19:32)
[2021-06-28 19:34] VITALS: RESP 14
== END 2021-06-28 19:34 | disposition home or self-care (01) ==
PROVIDERS: Emergency Provider Student in an Organized Health Care Education/Training Program; Visit Provider Student in an Organized Health Care Education/Training Program
DX: F41.9 Anxiety disorder, unspecified (principal); F31.9 Bipolar disorder, unspecified; F17.210 Nicotine dependence, cigarettes, uncomplicated; E87.6 Hypokalemia; R00.2 Palpitations; F43.10 Post-traumatic stress disorder, unspecified; Z79.899 Other long term (current) drug therapy
CPT/HCPCS: 99282

== ENCOUNTER 2021-06-28 21:06 | Emergency (ER) | payer MEDICAID, SELFPAY ==
[2021-06-28 21:07] VITALS: BP 127/87; PULSE 95; RESP 16; TEMP 36.4; O2SAT 97; BMI 21.7
== END 2021-06-28 21:43 | disposition left against medical advice (07) ==
DX: Z53.21 Procedure and treatment not carried out due to patient leaving prior to being seen by health care provider (principal)
CPT/HCPCS: 99281

== ENCOUNTER 2021-06-28 23:34 | Emergency (ER) | payer MEDICAID, SELFPAY ==
[2021-06-28 23:35] VITALS: BP 131/83; PULSE 111; RESP 15; TEMP 36.4; O2SAT 96; BMI 21.3
--- NOTE | 2021-06-28 23:50 | EKG12_ITS ---
Test Reason : CP Blood Pressure : / mmHG Vent. Rate : 103 BPM Atrial Rate : 103 BPM P-R Int : 148 ms QRS Dur : 084 ms QT Int : 350 ms P-R-T Axes : 072 066 055 degrees QTc Int : 458 ms Sinus tachycardia Otherwise normal ECG Confirmed by HARPER ROLLINS, MARTINEZ ([id number]), health editor ZARA ACOSTA ([id number]) on 06/30/2021 11:44:18 A M Referred By: CHANTAL Confirmed By:SREEDHAR SALEEM MD
--- NOTE | 2021-06-28 23:57 | EDS_ITS ---
HPI History of Present Illness Chief Complaint: Chest Pain Informant: patient Onset/Context/Timing Onset: - (For years.) Activity at onset: sudden Timing: Intermittent Quality: Positive for Sharp Location: Right Chest and Left Chest Current Severity: Gone Maximum Severity: Mild Worsened By: Nothing Relieved By: Nothing Associated Symptoms: Negative for Nausea, Vomiting, Diaphoresis, Dyspnea, Cough, Fever, Lightheadedness, Acid Reflux and Palpitations Narrative Narrative: 25-year-old male history of bipolar, PTSD and anxiety. This is his fourth emergency department visit last 24 hours. He is concerned about intermittent chest pain that he has had for years. It is nonexertional. Its not heavy. He said at times it sharp. It can be anywhere in his chest. He has no history of DVT or PE. No risk factors. He has never had any cardiac history. I actually saw this patient yesterday and did an evaluation on him. At that time he had a tachycardia induced by drug ingestion. Prior Similar Symptoms: Yes Recent Illness/Hospitalization: No CVD Risk Factors: Positive for Smoking; Negative for Hypertension, Diabetes and Hypercholesterolemia PE Risk Factors: Negative for Recent Travel/Surgery, Recent Immobilization, Prior DVT or PE, Cancer and OCP + Smoking + >/=35 TAD Risk Factors: Negative for Marfan's Syndrome and Hypertension [facility] Medical History Anxiety Bipolar 1 disorder Manic bipolar I disorder PTSD (post-traumatic stress disorder) Home Medications quetiapine [Seroquel] 150 mg PO QHS PRN PRN 09/25/17 [History Last Taken Un known] hydroxyzine HCl 25 mg PO QHS #30 tab 06/28/21 [Rx Last Taken Unknown] Allergy/AdvReac Type Severity Reaction Status Date / Time Penicillins Allergy Hives Verified 06/28/21 23:35 Social History Smoking Status: Current every day smoker tobacco type: cigarettes and e- cigarettes ROS ROS ED ROS Narrative Chest pain. Otherwise no recent illness. Review of Systems ROS Unobtainable: Denies due to encephalopathy Constitutional Constitutional ED: Denies fever(s) Eyes Eyes: Denies none ENT ENT ED: Denies ear pain Cardiovascular Cardiovascular: Reports as per HPI and chest pain; Denies palpitations or racing heartbeat Respiratory/Chest Respiratory/Chest: Denies cough or dyspnea Gastrointestinal Gastrointestinal: Denies abdominal pain, diarrhea, nausea or vomiting Genitourinary Genitourinary ED: Denies dysuria or hematuria Musculoskeletal Musculoskeletal: Denies myalgias Integumentary Denies rash Neurologic Neurologic: Denies headache(s) Psychiatric Psychiatric: Denies depression Endocrine Endocrinology: Denies polyuria Hematologic/Lymphatic Hematologic/Lymphatic: Denies easy bruising Allergic/Immunologic Allergic/Immunologic ED: Denies urticaria EXAM Physical Exam Narrative Exam Narrative: 25-year-old male anxious. Vital signs stable afebrile. Pulse ox 96% on room air no signs of hypoxia. He is in no distress. H EENT exam unremarkable. Neck nontender no JVD. No lymphadenopathy. Lungs clear to auscultation bilaterally. Heart tachycardic rate about 110 no murmur. Chest wall nontender. Abdomen soft nontender. Patient moving all 4 extremities. Equal symmetrical radial pulses. Calves are nontender without edema or cords. Neurologically is awake and alert. Back nontender. Const Vital Signs: 06/28/21 23:35 Temperature 97.6 F L Temperature Source Temporal Pulse Rate 111 H Respiratory Rate 15 Blood Pressure 131/83 H Blood Pressure Mean 99 Pulse Ox 96 Oxygen Delivery Method Room Air Positive well nourished and well developed; Negative for obese, cachectic, contractures or unkempt General Appearance ED: well developed and NAD; Negative for unkempt, cachectic, contractures or pallor Nutritional Appearance: Negative for cachectic or obese HEENT Reports moist mucous membranes normocephalic and atraumatic Eyes PERRL and EOMs intact bilaterally General Eye ED: Negative for pale conjunctiva or scleral icterus Neck no lymphadenopathy, supple and no JVD General: Negative for tenderness Chest Wall inspection of chest normal and palpation of chest normal Chest: Negative for tenderness Resp normal respiratory effort and clear to auscultation bilaterally Effort and Inspection: respiratory distress Auscultation: Negative for rales, rhonchi or wheezes Cardio regular rhythm, S1 normal heart sound, S2 normal heart sound and no murmurs; Negative for regular rate Rate: tachycardic; Negative for bradycardia Rhythm: Negative for abnormal rhythm Peripheral Pulses: pulses 2+ throughout and radial pulses present GI normal to inspection, nondistended, normoactive bowel sounds, soft to palpation, non-tender, non-distended and no masses; Negative for hepatosplenomegaly Auscultation: Negative for hyperactive bowel sounds Palpation: Negative for splenomegaly or mass Back/Spine no CVA tenderness and no thoracic nor lumbar tenderness General Back: Negative for CVA tenderness Cervical Spine: Negative for cervical spine tenderness Extremity normal to inspection General Extremety ED: Negative for edema, pulses abnormal or tenderness General Extremity: Negative for edema or pulses abnormal Neuro oriented x3 and CN's II-XII intact bilaterally Sensorium / Orientation: awake, alert, oriented to person, oriented to place and oriented to time; Negative for lethargic or stuporous Motor Exam: strength 5/5 throughout Psych mental status grossly normal Appearance: Negative for unkempt Attitude: No agitated Mood & Affect: anxious; Negative for depressed or tearful Skin no rashes or lesions noted and no wounds General Skin Exam: Negative for jaundice or pallor Rashes: No rashes noted MDM MDM MDM Narrative Medical decision making narrative: 25-year-old male who is anxious. Exam is benign. EKG is unremarkable. He will be discharged home. Be given 1 Ativan to use at home tonight to help him sleep. Follow-up with the counseling center. Lab Data Attestation: I reviewed the patient's lab results. Rhythm Strip Rhythm Strip: Sinus Tach Rate: 103 Ectopy: None EKG Initial EKG: Attestation: I personally reviewed and interpreted this EKG as follows: Interpretation: Sinus Rhythm, No Acute Injury Pattern and Sinus Tachy cardia Comments: Sinus tachycardia. Rate of 103. No acute signs of NV nor ischemia. Discharge Plan Triage Chief Complaint: Chest Pain ED Provider: Doroteo Crowell Dx/Rx/DC Orders Clinical Impression: Chest pain, Anxiety, History of posttraumatic stress disorder (PTSD) Instructions: ED Anxiety Reaction, ED Chest Pain, Noncardiac Prescriptions: No Action quetiapine [Seroquel] 100 MG tablet 150 mg PO QHS PRN PRN (Reason: Sleep) RF: 0 hydroxyzine HCl 25 mg tablet 25 mg PO QHS Qty: 30 RF: 0 Primary Care Provider: Care Physician,No Primary Referrals: Counseling,Center [GROUP OF PHYSICIANS] - As soon as possible Care Physician,No Primary [Primary Care Provider] - Activity Restrictions/Additional Instructions: Follow-up with the counseling center. Your heart and lungs are fine. Use the Ativan tonight when you go home to help you sleep. Disposition Disposition: Home, Self Care
[2021-06-29] MEDS: LORazepam 1 MG Tablet PO (00:09)
== END 2021-06-29 00:09 | disposition home or self-care (01) ==
PROVIDERS: Emergency Provider Emergency Medicine; Visit Provider Emergency Medicine
DX: R07.9 Chest pain, unspecified (principal); F31.9 Bipolar disorder, unspecified; F41.9 Anxiety disorder, unspecified; F17.210 Nicotine dependence, cigarettes, uncomplicated; F43.10 Post-traumatic stress disorder, unspecified; Z79.899 Other long term (current) drug therapy; F17.290 Nicotine dependence, other tobacco product, uncomplicated
CPT/HCPCS: 99281

== ENCOUNTER 2021-06-30 01:46 | Emergency (ER) | payer MEDICAID, SELFPAY ==
[2021-06-30 01:47] VITALS: BP 140/92; PULSE 113; RESP 18; TEMP 37.2; O2SAT 98; BMI 21.1
--- NOTE | 2021-06-30 03:09 | EKG12_ITS ---
Test Reason : CP Blood Pressure : / mmHG Vent. Rate : 129 BPM Atrial Rate : 129 BPM P-R Int : 156 ms QRS Dur : 084 ms QT Int : 292 ms P-R-T Axes : 054 037 023 degrees QTc Int : 427 ms Sinus tachycardia Otherwise normal ECG Confirmed by CASTRO ROLLINS, MIRA ([id number]), editorial writer ZARA ACOSTA ([id number]) on 07/03/2021 9:24:38 AM Referred By: PRAVEEN Confirmed By:MIRA ERAZO MD
[2021-06-30 03:22] VITALS: BP 147/103; PULSE 109; RESP 16; O2SAT 96
--- NOTE | 2021-06-30 03:29 | EDS_ITS ---
HPI History of Present Illness Chief Complaint: Chest Pain Informant: patient Narrative Narrative: Patient is a 25-year-old male presenting with palpitations, chest discomfort and anxiety. He states he been having worsening anxiety over the past few days. Patient is on multiple ER visits in our ER as well as [facility] as well as [facility] for the same complaint. Patient states he has a history of bipolar disorder as well as PTSD and anxiety. He states he did take his Seroquel tonight. He is planning on calling his psychiatrist in the morning and follows with the counseling center. He states has been feeling more anxious lately after he had a spiritual awakening. He now believes in God and is concerned he is going to help. States he is also worried that he might have poison himself as he went on a 4- day cleanse of [place] sea dillard is concerning his iodine poisoning. He lives with his girlfriend. He states he feels safe at home. He denies any homicidal suicidal ideations. Denies any acute change in his symptoms today. Was previously given a prescription for hydroxyzine which he has not picked up yet. He currently does not want a psychiatric evaluation. There is no one with him in the emergency room. He states he currently lives with his grandmother does not want to call her or wake her up. He just requesting something to help him sleep. Patient drove here. [facility] Medical History Anxiety Bipolar 1 disorder Manic bipolar I disorder PTSD (post-traumatic stress disorder) Home Medications quetiapine [Seroquel] 150 mg PO QHS PRN PRN 09/25/17 [History Last Taken Unknown] hydroxyzine HCl 25 mg PO QHS #30 tab 06/28/21 [Rx Last Taken Unknown] Allergy/AdvReac Type Severity Reaction Status Date / Time Penicillins Allergy Hives Verified 06/28/21 23:35 Social History Smoking Status: Current every day smoker tobacco type: cigarettes and e- cigarettes ROS ROS ED Constitutional Constitutional ED: Denies chills or fever(s) Eyes Eyes: Denies change in vision Cardiovascular Cardiovascular: Reports chest pain, palpitations and racing heartbeat Respiratory/Chest Respiratory/Chest: Denies cough or dyspnea Gastrointestinal Gastrointestinal: Denies abdominal pain, nausea or vomiting Musculoskeletal Musculoskeletal: Denies arthralgias or myalgias Integumentary Denies rash Neurologic Neurologic: Denies headache(s) or weakness Psychiatric Psychiatric: Reports anxiety; Denies depression, suicidal ideation or suicidal thoughts EXAM Physical Exam Const Vital Signs: 06/30/21 01:47 06/30/21 03:22 Temperature 98.9 F Temperature Source Temporal Pulse Rate 113 H 109 H Respiratory Rate 18 16 Blood Pressure 140/92 H 147/103 H Blood Pressure Mean 108 117 Pulse Ox 98 96 Oxygen Delivery Method Room Air Positive well nourished and well developed General Appearance ED: well developed HEENT Reports moist mucous membranes Negative for trauma Eyes PERRL and EOMs intact bilaterally Neck supple Chest Wall inspection of chest normal and palpation of chest normal Resp normal respiratory effort and clear to auscultation bilaterally Cardio regular rhythm and no murmurs Rate: tachycardic GI normal to inspection, nondistended, normoactive bowel sounds Extremity normal to inspection General Extremety ED: Negative for edema or tenderness General Extremity: Negative for edema Neuro oriented x3 Sensorium / Orientation: alert Motor Exam: Negative for general weakness Psych Psych Narrative: Patient has some bizarre speech but does not appear to be no acute threat to himself or others. This time I do think he has capacity for his own medical decision making. Mood & Affect: anxious Skin no rashes or lesions noted and no wounds MDM MDM MDM Narrative Medical decision making narrative: Patient evaluated for palpitations. Patient been seen multiple times in our ER as well as at [facility] for the same complaint. His EKG continues to show sinus tachycardia with no acute ischemic changes or ST changes concerning for myocarditis, pericarditis or ACS. Patient does seem to have a concern for some fixed delusions however he does not appear to be in imminent risk to himself or others. I am going to speak to in his contacts and no one is at the bedside with him to voice any concerns. Patient is ordered a dose of oral Ativan however he then states that he does not want to take it because he does not want awake of his grandmother to get a ride here as he drove himself. Patient then leaves the emergency room without his discharge instructions. Patient does have a prescription for hydroxyzine at the pharmacy which he states he will berry picker today. We did discuss with the counseling center and inform them of his multiple visits and need for close outpatient follow-up. They are aware and will try to get him in sooner but states he does have an appointment for 1 week from now. Rhythm Strip Rhythm Strip: Sinus Tach Rate: 129 Ectopy: None EKG Initial EKG: Attestation: I personally reviewed and interpreted this EKG as follows: Interpretation: Sinus Tachycardia Comments: Sinus tachycardia rate of 129 Normal axis Normal intervals Normal ST segments Discharge Plan Triage Chief Complaint: Chest Pain ED Provider: Carmencita Paulson Dx/Rx/DC Orders Clinical Impression: Anxiety, Tachycardia Prescriptions: No Action quetiapine [Seroquel] 100 MG tablet 150 mg PO QHS PRN PRN (Reason: Sleep) RF: 0 hydroxyzine HCl 25 mg tablet 25 mg PO QHS Qty: 30 RF: 0 Primary Care Provider: Care Physician,No Primary Referrals: Care Physician,No Primary [Primary Care Provider] - Disposition Disposition: [facility]op[facility] Discharge Date/Time: 06/30/21 03:35
--- NOTE | 2021-06-30 03:33 | ED.RN ---
Pt continues to ask for anxiety medication stating thats all im here for Pt wants medication and to go home. Pt was told he could one dose of ativan PO but he would need to find a ride home as he drive himself to the ED. Pt then states he doesnt want to bother anyone for a ride home Pt states im just going to go home, i dont want the medicine anymore
== END 2021-06-30 03:35 | disposition left against medical advice (07) ==
LOC: ED 02:32
PROVIDERS: Emergency Provider Emergency Medicine; Visit Provider Emergency Medicine
DX: F41.9 Anxiety disorder, unspecified (principal); F31.9 Bipolar disorder, unspecified; R00.0 Tachycardia, unspecified; F43.10 Post-traumatic stress disorder, unspecified; F17.210 Nicotine dependence, cigarettes, uncomplicated; F17.290 Nicotine dependence, other tobacco product, uncomplicated; Z53.29 Procedure and treatment not carried out because of patient's decision for other reasons; Z79.899 Other long term (current) drug therapy
CPT/HCPCS: 93005

== ENCOUNTER 2021-07-16 03:02 | Inpatient (IN) | payer MEDICAID, SELFPAY ==
[2021-07-16] VITALS (17 sets, daily range): BP systolic 107–150; BP diastolic 68–102; PULSE 66–95; RESP 11–23; TEMP 36.1–36.8; O2SAT 94–100; BMI 22.9
--- NOTE | 2021-07-16 03:05 | CT_ITS ---
STUDY: CT CERVICAL SPINE WITHOUT CONTRAST REASON FOR EXAM: Male, 25 years old. head injury RADIATION DOSAGE (If Supplied By Facility): CTDIvol = ( 22.95 ) mGy, DLP = ( 511.58 ) mGycm INDICATION: head injury EXAMINATION: CT CERVICAL SPINE - CT Spine Cervical W/O Contrast Injection TECHNIQUE: Helically acquired images were obtained of the cervical spine. 2D reformatted images were reviewed. A radiation dose optimization technique was used for this scan. COMPARISON: 09/25/2017 FINDINGS: ALIGNMENT: Normal. VERTEBRAL BODIES: No fracture or acute abnormality. DISC SPACES: Normal. POSTERIOR ELEMENTS: Normal. SPINAL CANAL: Normal. PARASPINAL SOFT TISSUES: Normal. LUNG APICES: Visualized portions normal. OTHER: None. CT/Spine Cervical without Contras IMPRESSION: No acute fracture or subluxation. Electronically Signed: Pako Turner MD at 6:28 EDT ,
--- NOTE | 2021-07-16 03:05 | RAD_ITS ---
INDICATION: Altered level of consciousness EXAMINATION/TECHNIQUE: X-RAY - XR Chest 1 View COMPARISON: 05/07/2021 FINDINGS: LINES/DEVICES: None. LUNGS: No consolidation, edema or effusion. No pneumothorax. MEDIASTINUM AND CARDIOVASCULAR STRUCTURES: Cardiac silhouette not enlarged. Central airways and mediastinal contour are unremarkable. BONES AND SOFT TISSUES: Unremarkable. RAD/Chest 1 View (Portable) IMPRESSION: No radiographic evidence of acute cardiopulmonary disease. Electronically Signed: Pako Turner MD at 6:35 EDT ,
--- NOTE | 2021-07-16 03:05 | CT_ITS ---
STUDY: CT BRAIN WITHOUT CONTRAST REASON FOR EXAM: Male, 25 years old. Altered level of consciousness RADIATION DOSAGE (If Supplied By Facility): CTDIvol = ( 44.99 ) mGy, DLP = ( 796.11 ) mGycm HISTORY: Altered level of consciousness TECHNIQUE: CT Head or Brain W/O Contrast Injection COMPARISON: CT brain 09/25/2017 LIMITATIONS: None. BRAIN: Normal gamble/white matter differentiation. VENTRICLES: No hydrocephalus. EXTRA-AXIAL SPACES: No hemorrhages, fluid collections, or masses. CALVARIUM/SKULL BASE: Normal. FACE/SINUSES: Visualized portions normal. SOFT TISSUES: Normal. OTHER: None. CONCLUSION: No intracranial hemorrhage, mass or acute territorial infarction. Electronically Signed: Pako Turner MD at 6:26 EDT , CT/Brain/Head without Contrast
--- NOTE | 2021-07-16 03:06 | EKG12_ITS ---
Test Reason : DYSRHYTHMIA Blood Pressure : / mmHG Vent. Rate : 094 BPM Atrial Rate : 094 BPM P-R Int : 152 ms QRS Dur : 088 ms QT Int : 388 ms P-R-T Axes : 061 050 036 degrees QTc Int : 485 ms Normal sinus rhythm Prolonged QT Abnormal ECG Confirmed by CASTRO ROLLINS, MIRA ([id number]), news videotape editor ROSARIO YO ([id number]) on 07/23/2021 10:33:11 AM Referred By: RAQUEL Confirmed By:MIRA ERAZO MD
[2021-07-16 03:36] LABS: Absolute Lymphocyte Count 1.66 X10^3/uL (0.83-4.51); Absolute Neutrophil Count 12.4 X10^3/uL (2.0-7.7); Basophil# 0.03 X10^3/uL; Basophil% 0.2 % (0-1); Hematocrit 44.8 % (40-54); Hemoglobin 15.5 g/dL (13.0-16.5); Lymphocyte # 1.66 X10^3/ul (0.83-4.51); Lymphocyte % 10.9 % (19-41); Mean Corp Hgb Conc 34.6 g/dL (32-36); Mean Corpuscular Hgb 30.8 pg (27.0-32.0); Mean Corpuscular Volume 89.1 fL (80-94); Mean Platelet Vol. 11.3 fl (6.2-12.0); Monocyte# 1.08 X10^3/uL; Monocyte% 7.1 % (0-10); NRBC Flagged by Analyzer 0 % (0-5); Neutrophil # 12.39 X10^3/uL (2.7-7.7); Neutrophil % 81.3 % (47-70); Platelet Count 210 K/mm3 (150-450); RBC Distribution Width CV 11.9 % (11.6-14.6); RBC Distribution Width SD 38.7 fl (35.1-43.9); Red Blood Count 5.03 M/mm3 (4.6-6.2); White Blood Count 15.2 K/mm3 (4.4-11.0)
[2021-07-16 03:44] LABS: International Normalized Ratio 1.2; Prothrombin Time (Protime)PT. 14.3 SECONDS (11.7-14.9)
[2021-07-16 03:45] LABS: Partial Thromboplast Time 29.1 Seconds (24.1-36.2)
[2021-07-16 03:48] LABS: Anion Gap 9 (5-15); BUN 7 mg/dL (7-18); BUN/Creat Ratio 7.6 RATIO (10-20); Calcium,Total 8.9 mg/dL (8.5-10.1); Chloride 108 mmol/L (98-107); Creatinine, Serum 0.92 mg/dL (0.70-1.30); EST Glomerular Filtration Rate 106 mL/min (>60); Est Glom Filt Rate - Afr Amer 128 mL/min (>60); Glucose 96 mg/dL (74-106); Potassium 3.5 mmol/L (3.5-5.1); Sodium Level 139 mmol/L (136-145)
[2021-07-16] MEDS: Haloperidol Lactate 5 MG/ML Vial IV (03:54)
[2021-07-16] MEDS: LORazepam 2 MG/ML Syringe IV (03:54)
[2021-07-16 04:10] LABS: Lactic Acid 4.2 mmol/L (0.4-1.9)
[2021-07-16] MEDS: Midazolam 2 MG/2 ML Syringe IV (04:17)
[2021-07-16] MEDS: DiphenhydrAMINE 50 MG/ML Syringe IV (04:17)
[2021-07-16] MEDS: 0.9% Normal Saline 1,000 ML 999 ML IV ×2 (04:35→06:37)
[2021-07-16 04:55] LABS: AST(SGOT) 13 U/L (15-37); Alanine Aminotransfer ALT/SGPT 22 U/L (16-61); Albumin, Serum 4.4 g/dL (3.2-5.0); Alkaline Phosphatase 77 U/L (45-117); Bilirubin, Direct 0.09 mg/dL (0.00-0.30); Globulin 3.3 g/dL (2.2-4.2); Protein, Total 7.7 g/dL (6.4-8.2)
[2021-07-16 04:58] LABS: Mucous, Urine 0 SEEN /hpf (<or=2+); Red Blood Cells-Urine 0 SEEN /hpf (0-5); Squamous Epithelial Cells - UA 0 SEEN /hpf (0-5); White Blood Cells 0 SEEN /hpf (0-5)
[2021-07-16 04:59] LABS: Color, Urine Yellow (Yellow); Glucose, Dipstick Normal (Normal); Ketone-Dipstick 15 mg/dl (Negative); Leukocyte Esterase-Dipstick Negative /ul (Negative); Nitrite-Dipstick Negative (Negative); Occult Blood-Urine 10 /ul (Negative); Protein-Dipstick 30 mg/dl (Negative); Specific Gravity, Urine 1.015 (1.002-1.030); Urine Bilirubin Dipstick Negative (Negative); Urine Clarity Clear (Clear); Urine Urobilinogen 1 mg/dl (Normal)
--- NOTE | 2021-07-16 05:01 | EDS_ITS ---
HPI History of Present Illness Chief Complaint: Alt LOC Narrative Narrative: Patient is a 25-year-old male with past medical history of bipolar and anxiety. He was brought in by friends jude for altered mental status. Reportedly patient was with his girlfriend when he was acting mean and aggressive. Secondary to this she left. She states she returned to check on him roughly an hour later and found him with an altered mental status and signs of trauma to his head. She states because of his change in mental status she had friends help her get him in the car and they brought him to the hospital for evaluation. She states she is unsure if the patient did any alcohol or illicit drug this evening. The patient cannot offer any further history [facility] Medical History (Updated 07/16/21 @ 06:[address] Chago Landers DO) Anxiety and depression Bipolar 1 disorder Cannabis use disorder, mild, abuse Manic bipolar I disorder PTSD (post-traumatic stress disorder) Schizophrenia TBI (traumatic brain injury) Home Medications quetiapine [Seroquel] 150 mg PO QHS PRN PRN 09/25/17 [History Last Taken Unknown] hydroxyzine HCl 25 mg PO QHS #30 tab 06/28/21 [Rx Last Taken Unknown] Allergy/AdvReac Type Severity Reaction Status Date / Time Penicillins Allergy Hives Verified 07/16/21 03:11 Family History (Updated 07/16/21 @ 06:[address] Hollie Carvalho MD) Father Heart disease Hypertension Diabetes Family History other Surgical History (Updated 07/16/21 @ 06:[address] Hollie Carvalho MD) History of surgery on arm Social History (Updated 07/16/21 @ 06:[address] Hollie Carvalho MD) household members: significant other Smokeless tobacco user: other alcohol intake: never substance use type: marijuana ROS ROS ED Review of Systems ROS Unobtainable: due to mental condition and due to mental status EXAM Physical Exam Const Vital Signs: 07/16/21 03:02 07/16/21 03:05 07/16/21 03:16 Temperature 97.8 F Temperature Source Temporal Pulse Rate 74 Respiratory Rate 14 18 Respiratory Effort Normal Non-Labored Respiratory Pattern Normal Blood Pressure 123/81 H Blood Pressure Mean 95 Pulse Ox 100 Oxygen Delivery Method Room Air 07/16/21 06:38 07/16/21 06:41 Temperature 97.8 F Temperature Source Temporal Pulse Rate 68 67 Respiratory Rate 16 16 Respiratory Effort Respiratory Pattern Blood Pressure 107/75 107/76 Blood Pressure Mean 85 86 Pulse Ox 98 98 Oxygen Delivery Method Room Air Positive well nourished and well developed General Appearance ED: well developed HEENT Reports moist mucous membranes HEENT Narrative: No tongue or cheek biting to suggest seizure activity no oral lesions no airway edema or compromise. Patient does have hematomas to the left frontal portion of his scalp consistent/concerning for head trauma but there are no signs of depressed or basilar skull fracture Eyes Eyes Narrative: Pupils are dilated and sluggish to respond Neck supple Neck Narrative: No meningeal sign Chest Wall palpation of chest normal Chest Narrative: No bony deformity or crepitance of the chest wall Resp normal respiratory effort and clear to auscultation bilaterally Cardio regular rhythm Rate: tachycardic and other Other Details: Radial pulses are +2-4 bilaterally are equal and symmetric GI non-tender, non-distended and no masses GI Narrative: Bowel sounds are hypoactive no fluid wave or pulsatile mass Palpation: soft Extremity normal to inspection Neuro Neuro Narrative: Patient is obtunded with GCS of 11. However he is protecting his airway he will localize pain and move all extremities and will occasionally speak nonsensically. There are no obvious focal neurologic deficits. Skin no rashes or lesions noted Skin Narrative: Patient has the hematoma to the left frontal portion of his scalp as documented above as well as old ecchymotic lesions across his legs and hands and superficial abrasions to the hands as well MDM MDM MDM Narrative Medical decision making narrative: Patient presented to the ER slightly hypertensive otherwise with stable vitals. He was obtunded with a GCS of 11 but was protecting his airway. With his altered mental status a work-up was obtained to check for possible cause and as he had signs of trauma to his head/face CTs were obtained as well. Images revealed no acute infection within the lungs or signs of trauma to the head or cervical spine. He had no obvious drugs within his tox screen other than marijuana and benzos were positive but we obtained the talk screen after he had been given Versed and Ativan in the ER. Ammonia is elevated but this can elevate in seizure activity and his lactic acid is also up which could correlate with this however patient does not have any known history of seizure activity. He is still been very combative and aggressive and therefore needs to be kept in four-point restraint. At this time as he has not returned to a baseline mental status he will need to be kept in the hospital for continued observation. Therefore medicine was contacted and agrees to admit the patient at this time Lab Data Attestation: I reviewed the patient's lab results. Labs: Laboratory Results - last 24 hr 07/16/21 07/16/21 07/16/21 03:20 03:20 03:20 WBC 15.2 H RBC 5.03 Hgb 15.5 Hct 44.8 MCV 89.1 MCH 30.8 MCHC 34.6 RDW Std Deviation 38.7 RDW Coeff of Ryan 11.9 Plt Count 210 MPV 11.3 Immature Gran % (Auto) 0.500 Neut % (Auto) 81.3 H Lymph % (Auto) 10.9 L [place] % (Auto) 7.1 Eos % (Auto) 0.0 Baso % (Auto) 0.2 Absolute Neuts (auto) 12.4 H Absolute Lymphs (auto) 1.66 Nucleated RBC % 0 PT INR APTT Sodium 139 Potassium 3.5 Chloride 108 H Carbon Dioxide 22.0 Anion Gap 9 BUN 7 Creatinine 0.92 Estim Creat Clear Calc 126.00 Est GFR (MDRD) Af Amer 128 Est GFR (MDRD) Non-Af 106 BUN/Creatinine Ratio 7.6 L Glucose 96 Lactic Acid Calcium 8.9 Total Bilirubin Direct Bilirubin AST ALT Alkaline Phosphatase Ammonia Total Protein Albumin Globulin Urine Color Urine Clarity Urine pH Ur Specific [place] Urine Protein Urine Glucose (UA) Urine Ketones Urine Occult Blood Urine Nitrite Urine Bilirubin Urine Urobilinogen Ur Leukocyte Esterase Urine RBC Urine WBC Ur Squamous Epith Cells Amorphous Sediment Urine Bacteria Urine Mucus Salicylates < 1.7 L Urine Opiates Screen Urine Methadone Screen Acetaminophen < 2.0 L Ur Barbiturates Screen Ur Phencyclidine Scrn Ur Amphetamines Screen MDMA (Ecstasy) Screen U Benzodiazepines Scrn Urine Cocaine Screen U Cannabinoids Screen Ur Drug Screen Comment Ethyl Alcohol < 3.0 07/16/21 07/16/21 07/16/21 03:20 03:20 03:20 WBC RBC Hgb Hct MCV MCH MCHC RDW Std Deviation RDW Coeff of Ryan Plt Count MPV Immature Gran % (Auto) Neut % (Auto) Lymph % (Auto) [place] % (Auto) Eos % (Auto) Baso % (Auto) Absolute Neuts (auto) Absolute Lymphs (auto) Nucleated RBC % PT 14.3 INR 1.2 APTT 29.1 Sodium Potassium Chloride Carbon Dioxide Anion Gap BUN Creatinine Estim Creat Clear Calc Est GFR (MDRD) Af Amer Est GFR (MDRD) Non-Af BUN/Creatinine Ratio Glucose Lactic Acid 4.2 H* Calcium Total Bilirubin Direct Bilirubin AST ALT Alkaline Phosphatase Ammonia 205.0 H Total Protein Albumin Globulin Urine Color Urine Clarity Urine pH Ur Specific [place] Urine Protein Urine Glucose (UA) Urine Ketones Urine Occult Blood Urine Nitrite Urine Bilirubin Urine Urobilinogen Ur Leukocyte Esterase Urine RBC Urine WBC Ur Squamous Epith Cells Amorphous Sediment Urine Bacteria Urine Mucus Salicylates Urine Opiates Screen Urine Methadone Screen Acetaminophen Ur Barbiturates Screen Ur Phencyclidine Scrn Ur Amphetamines Screen MDMA (Ecstasy) Screen U Benzodiazepines Scrn Urine Cocaine Screen U Cannabinoids Screen Ur Drug Screen Comment Ethyl Alcohol 07/16/21 07/16/21 07/16/21 03:20 04:55 04:55 WBC RBC Hgb Hct MCV MCH MCHC RDW Std Deviation RDW Coeff of Ryan Plt Count MPV Immature Gran % (Auto) Neut % (Auto) Lymph % (Auto) [place] % (Auto) Eos % (Auto) Baso % (Auto) Absolute Neuts (auto) Absolute Lymphs (auto) Nucleated RBC % PT INR APTT Sodium Potassium Chloride Carbon Dioxide Anion Gap BUN Creatinine Estim Creat Clear Calc Est GFR (MDRD) Af Amer Est GFR (MDRD) Non-Af BUN/Creatinine Ratio Glucose Lactic Acid Calcium Total Bilirubin 0.40 Direct Bilirubin 0.09 AST 13 L ALT 22 Alkaline Phosphatase 77 Ammonia Total Protein 7.7 Albumin 4.4 Globulin 3.3 Urine Color Yellow Urine Clarity Clear Urine pH 8.0 Ur Specific [place] 1.015 Urine Protein 30 H Urine Glucose (UA) Normal Urine Ketones 15 H Urine Occult Blood 10 H Urine Nitrite Negative Urine Bilirubin Negative Urine Urobilinogen 1 H Ur Leukocyte Esterase Negative Urine RBC 0 SEEN Urine WBC 0 SEEN Ur Squamous Epith Cells 0 SEEN Amorphous Sediment 1+ Urine Bacteria 2+ Urine Mucus 0 SEEN Salicylates Urine Opiates Screen NEGATIVE Urine Methadone Screen NEGATIVE Acetaminophen Ur Barbiturates Screen NEGATIVE Ur Phencyclidine Scrn NEGATIVE Ur Amphetamines Screen NEGATIVE MDMA (Ecstasy) Screen NEGATIVE U Benzodiazepines Scrn POSITIVE H Urine Cocaine Screen NEGATIVE U Cannabinoids Screen POSITIVE H Ur Drug Screen Comment Ethyl Alcohol Radiography Diagnostic Testing: Clinical Impression(s) from Imaging Studies Brain CT 07/16/21 03:[address] 07/16/21 03:05 IMPRESSION: No acute fracture or subluxation. Electronically Signed: Pako Turner MD at 6:28 EDT , Chest X-Ray 07/16/21 03:05 IMPRESSION: No radiographic evidence of acute cardiopulmonary disease. Electronically Signed: Pako Turner MD at 6:35 EDT , Chest x-ray is interpreted by the emergency medicine physician reveals no acute infiltrate pneumothorax or pleural effusion Discharge Plan Triage Chief Complaint: Alt LOC ED Provider: Chago Landers Dx/Rx/DC Orders Clinical Impression: Altered mental status, Seizure-like activity, Hyperammonemia Prescriptions: No Action quetiapine [Seroquel] 100 MG tablet 150 mg PO QHS PRN PRN (Reason: Sleep) RF: 0 hydroxyzine HCl 25 mg tablet 25 mg PO QHS Qty: 30 RF: 0 Primary Care Provider: Care Physician,No Primary Referrals: Care Physician,No Primary [Primary Care Provider] - Disposition Disposition: [facility]
[2021-07-16 05:05] LABS: Acetaminophen (Tylenol) Level < 2.0 ug/mL (10.0-30.0); Alcohol, Blood (Medical)-Serum < 3.0 mg/dL; Salicylate < 1.7 mg/dL (2.8-20.0)
[2021-07-16 05:09] LABS: Amorphous Sediment 1+; Bacteria 2+ /hpf (None Seen)
[2021-07-16 05:29] LABS: Amphetamine Urine VISTA NEGATIVE (<1000 ng/mL); Barbiturate Urine VISTA NEGATIVE (< 200 ng/mL); Benzodiazepine Urine VISTA POSITIVE (< 200 ng/mL); Cocaine Urine VISTA NEGATIVE (< 300 ng/mL); Ecstacy Urine VISTA NEGATIVE (< 500 ng/mL); Methadone Urine VISTA NEGATIVE (< 300 ng/mL); PCP Urine VISTA NEGATIVE (< 25 ng/mL); THC Urine VISTA POSITIVE (< 50 ng/mL); Vista UDS pH Range 7
--- NOTE | 2021-07-16 06:24 | HP.PCM.HOS_ITS ---
HPI - General General Date of Admission: 07/16/21 Date of Service: 07/16/21 Chief Complaint: Possible seizures, intermittent severe agitation HPI Narrative The patient is a 25 y/o M w/ PMHx: Anxiety and Depression/Bipolar disorder/PTSD/Schizophrenia, Hx TBI, Intermittent cannabis usage who presents to the [facility] ED on 07/16/21 with history of 1 month of intermittent irregular behavior with periods of decreased responsiveness and periods of severe agitation with specifically on day of presentation noted to be found per his girlfriend on the ground body shaking, bleeding from several abrasions eventually becoming unresponsive and lethargic prompting transition to the ED. In the emergency room patient eventually became more alert but he became severely agitated and aggressive and never returned to what the family would perceive is his normal baseline. He did require several sedated regimen as well as four-point restraints. Work-up in the ED included initially T 97, heart rate 80, BP 138/91, respiratory rate 16, 98% on room air with intermittent severe tachycardia during his agitation, CBC with WC 15.2, hemoglobin 15.5, platelet 210 with left shift, unremarkable coags, CMP with chloride 108, lactic acid 4.2, unremarkable hepatic profile, ammonia 205, urinalysis with evidence of dehydration otherwise no obvious acute findings, CT of the brain with no acute intracranial hemorrhage, mass or acute territorial infarct, CT of the cervical spine with no acute fracture or subluxation, chest x-ray with no acute cardiopulmonary findings. In the ED secondary to severe agitation in order to obtain films patient was administered Versed, Ativan, Haldol and Benadryl. Following discussion with ED physician and concern for possible seizure activity patient was loaded with Keppra 1000 mg IV x1. [facility] Medical History (Updated 07/16/21 @ 06:[address] Hollie Carvalho MD) Anxiety and depression Bipolar 1 disorder Cannabis use disorder, mild, abuse Manic bipolar I disorder PTSD (post-traumatic stress disorder) Schizophrenia TBI (traumatic brain injury) Home Medications quetiapine [Seroquel] 150 mg PO QHS PRN PRN 09/25/17 [History Last Taken Unknown] hydroxyzine HCl 25 mg PO QHS #30 tab 06/28/21 [Rx Last Taken Unknown] Allergy/AdvReac Type Severity Reaction Status Date / Time Penicillins Allergy Hives Verified 07/16/21 03:11 Family History (Updated 07/16/21 @ 06:[address] Hollie Carvalho MD) Father Heart disease Hypertension Diabetes Family History other other (Patient without any marked maternal family history per family report including HD, DM, CA.) Surgical History (Updated 07/16/21 @ 06:[address] Hollie Carvalho MD) History of surgery on arm Social History (Updated 07/16/21 @ 06:[address] Hollie Carvalho MD) household members: significant other Smokeless tobacco user: other alcohol intake: never substance use type: marijuana ROS Review of Systems ROS Unobtainable: due to encephalopathy Vital Signs Vital Signs Vital Signs: 07/16/21 03:02 07/16/21 03:16 Temperature 97 F L Temperature Source Temporal Pulse Rate 80 Respiratory Rate 16 Respiratory Effort Normal Non-Labored Respiratory Pattern Normal Blood Pressure 138/91 H Blood Pressure Mean 106 Pulse Ox 98 Oxygen Delivery Method Room Air Weight Weight: 160 lb Body Mass Index (BMI) 22.9 Physical Exam Narrative Physical Examination: General: Patient is not alert, will awaken somewhat to stimuli but lethargic, appears well in the ED of extreme encephalopathy transition to extreme aggressiveness requiring medications, laying in the ED bed, currently calm. Skin: Normal color, normal turgor, no icterus, no cyanosis except very staged abrasions to the hands as well as ecchymoses to the face. HEENT: AT/NC, EOM unable to be assessed given encephalopathic and sedated status, left eye is mildly deviated outward, PERRLA, dry MM, no carotid bruits or JVD noted. Lungs: Diminished, greater bases, moderate effort, no rales, ronchi or wheezing. Heart: Currently regular rate and rhythm however patient had previously been significantly tachycardic; no gallop, rub audible. Abdomen: Soft, no obvious grimacing with palpation, ND, distant normal BS, no HSM. Extremities: No cyanosis, clubbing, or edema. Neurological: Patient is not alert, will awaken somewhat to stimuli but lethargic, appears well in the ED of extreme encephalopathy transition to extreme aggressiveness requiring medications, laying in the ED bed, currently calm, cognitive function not baseline intact; pupils equally reactive to light and accommodation, cranial nerves difficult to assess given acute presentation as noted, currently lethargic following sedated regimen secondary to severe agitation. Psychiatric: Affect appears flat, sedate, no acute evidence of depressive or anxiety feelings. Results Lab / Micro Data Result Diagrams: 07/16/21 03:20 07/16/21 03:20 Labs: Laboratory Results - last 24 hr 07/16/21 03:20: WBC 15.2 H, RBC 5.03, Hgb 15.5, Hct 44.8, MCV 89.1, MCH 30.8, MCHC 34.6, RDW Std Deviation 38.7, RDW Coeff of Ryan 11.9, Plt Count 210, MPV 11.3, Immature Gran % (Auto) 0.500, Neut % (Auto) 81.3 H, Lymph % (Auto) 10.9 L, [place] % (Auto) 7.1, Eos % (Auto) 0.0, Baso % (Auto) 0.2, Absolute Neuts (auto) 12.4 H, Absolute Lymphs (auto) 1.66, Nucleated RBC % 0 07/16/21 03:20: Sodium 139, Potassium 3.5, Chloride 108 H, Carbon Dioxide 22.0, Anion Gap 9, BUN 7, Creatinine 0.92, Estim Creat Clear Calc 126.00, Est GFR (MDRD) Af Amer 128, Est GFR (MDRD) Non-Af 106, BUN/Creatinine Ratio 7.6 L, Glucose 96, Calcium 8.9 07/16/21 03:20: Salicylates < 1.7 L, Acetaminophen < 2.0 L, Ethyl Alcohol < 3.0 07/16/21 03:20: Ammonia 205.0 H 07/16/21 03:20: Lactic Acid 4.2 H* 07/16/21 03:20: PT 14.3, INR 1.2, APTT 29.1 07/16/21 03:20: Total Bilirubin 0.40, Direct Bilirubin 0.09, AST 13 L, ALT 22, Alkaline Phosphatase 77, Total Protein 7.7, Albumin 4.4, Globulin 3.3 07/16/21 04:55: Urine Opiates Screen NEGATIVE, Urine Methadone Screen NEGATIVE, Ur Barbiturates Screen NEGATIVE, Ur Phencyclidine Scrn NEGATIVE, Ur Amphetamines Screen NEGATIVE, MDMA (Ecstasy) Screen NEGATIVE, U Benzodiazepines Scrn POSITIVE H, Urine Cocaine Screen NEGATIVE, U Cannabinoids Screen POSITIVE H, Ur Drug Screen Comment 04/06/22 04:55: Urine Color Yellow, Urine Clarity Clear, Urine pH 8.0, Ur Specific [place] 1.015, Urine Protein 30 H, Urine Glucose (UA) Normal, Urine Ketones 15 H, Urine Occult Blood 10 H, Urine Nitrite Negative, Urine Bilirubin Negative, Urine Urobilinogen 1 H, Ur Leukocyte Esterase Negative, Urine RBC 0 SEEN, Urine WBC 0 SEEN, Ur Squamous Epith Cells 0 SEEN, Amorphous Sediment 1+, Urine Bacteria 2+, Urine Mucus 0 SEEN Assessment & Plan Assessment/Plan (1) Seizure: PLAN: The patient is a 25 y/o M w/ PMHx: Anxiety and Depression/Bipolar disorder/PTSD/Schizophrenia, Hx TBI, Intermittent cannabis usage who presents to the [facility] ED on 07/16/21 with history of 1 month of intermittent irregular behavior with periods of decreased responsiveness and periods of severe agitation with specifically on day of presentation noted to be found per his girlfriend on the ground body shaking, bleeding from several abrasions eventually becoming unresponsive and lethargic prompting transition to the ED. #1. Acute encephalopathy, suspected to be postictal phase secondary to possible new-onset seizure: From description by family do suspect that they may have witnessed a seizure with postictal state and unfortunately coming to patient has demonstrated severe agitation requiring sedation. CT head without acute intracranial pathology. ED evaluation included elevated ammonia level, elevated LA and without clear source aside form possible seizure, will admit to ICU, maintain on telemetry on seizure precautions, obtain EEG, obtain brain MRI with and without to be cautious and of note may require sedation pending repeat assessment prior to MRI, obtain TSH. Will place on Keppra IV. Pending Neurology consultation. PRN ativan IV for seizure activity. NPO until cleared per RN swallow. #2. Anxiety and Depression/Bipolar disorder/PTSD/Schizophrenia: We will hold oral psychotic medications. If #1 demonstrates no seizure activity or cause certainly could be psychiatric component. #3. Cannabis use: UDS with positive cannabis, per discussion with family they deny any other usage. #4. DVT prophylaxis: Low risk, defer 1. Charges/Coding Visit Charges Inpatient E&M: 30004 Init Hosp L3
[2021-07-16] MEDS: levETIRAcetam IV 1,000 MG/100 ML BAG 400 MG IV (06:35)
--- NOTE | 2021-07-16 06:50 | MRI_ITS ---
EXAM: MR HEAD WITHOUT AND WITH INTRAVENOUS CONTRAST CLINICAL INDICATION: Seizure . TECHNIQUE: Multiplanar and multisequence MR images of the brain were obtained without and with intravenous contrast. This report was created using [employer] report generation technology. CONTRAST: 15ML IV DOTAREM COMPARISON: None. FINDINGS: BRAIN AND EXTRA-AXIAL SPACES: No abnormal enhancing lesions intraaxially and extra-axially. No focal signal abnormalities throughout the brain parenchyma. Normal and symmetrical limbic lobes. No intra- or extra-axial hemorrhage. No evidence of acute infarct. No intracranial mass or mass effect. Normal white matter and gamble matter. Posterior fossa structures are normal. Normal ventricles and cisterns. SELLA: Unremarkable. Normal sella turcica, pituitary gland, infundibular stalk, optic chiasm and hypothalamus. AUDITORY SYSTEM: Unremarkable. The internal auditory canals are patent. BONES/JOINTS: Unremarkable. No discrete lytic or blastic abnormalities. SINUSES: Unremarkable as visualized. Clear. MASTOID AIR CELLS: Unremarkable as visualized. Clear. ORBITS: Unremarkable as visualized. Both globes, extraocular muscles, optic nerves and retrobulbar fat appear unremarkable. VASCULATURE: Unremarkable as visualized. Normal flow voids in the major intracranial circulation. OTHER FINDINGS: No neuronal migrational disorders. MRI/Brain W/WO Contrast IMPRESSION: Normal MRI brain with and without contrast. Electronically Signed: Jose Wood MD at 10:09 EDT ,
--- NOTE | 2021-07-16 07:10 | PCM.PN.HOSP ---
Subjective Subjective Patient seen and examined. Detailed history unobtainable as patient is confused disoriented, agitated. He mumbles sounds and incomprehensible words. Objective Data Objective Data Vital Signs: Vital Signs Temp Pulse Resp BP Pulse Ox 97.8 F 67 16 107/76 98 07/16/21 06:41 07/16/21 06:41 07/16/21 06:41 07/16/21 06:41 07/16/21 06:41 Oxygen Delivery Method Room Air Weight: 160 lb Body Mass Index (BMI) 22.9 Intake & Output: Intake and Output for Last 24 Hours 07/14/21 07/15/21 07/16/21 23:59 23:59 23:59 Intake Total 1100 / 1100 Balance 1100 / 1100 Lab / Micro Data Result Diagrams: 07/16/21 03:20 07/16/21 03:20 Labs: Laboratory Results - last 24 hr 07/16/21 03:20: WBC 15.2 H, RBC 5.03, Hgb 15.5, Hct 44.8, MCV 89.1, MCH 30.8, MCHC 34.6, RDW Std Deviation 38.7, RDW Coeff of Ryan 11.9, Plt Count 210, MPV 11.3, Immature Gran % (Auto) 0.500, Neut % (Auto) 81.3 H, Lymph % (Auto) 10.9 L, [place] % (Auto) 7.1, Eos % (Auto) 0.0, Baso % (Auto) 0.2, Absolute Neuts (auto) 12.4 H, Absolute Lymphs (auto) 1.66, Nucleated RBC % 0 07/16/21 03:20: Sodium 139, Potassium 3.5, Chloride 108 H, Carbon Dioxide 22.0, Anion Gap 9, BUN 7, Creatinine 0.92, Estim Creat Clear Calc 126.00, Est GFR (MDRD) Af Amer 128, Est GFR (MDRD) Non-Af 106, BUN/Creatinine Ratio 7.6 L, Glucose 96, Calcium 8.9 07/16/21 03:20: Salicylates < 1.7 L, Acetaminophen < 2.0 L, Ethyl Alcohol < 3.0 07/16/21 03:20: Ammonia 205.0 H 07/16/21 03:20: Lactic Acid 4.2 H* 07/16/21 03:20: PT 14.3, INR 1.2, APTT 29.1 07/16/21 03:20: Total Bilirubin 0.40, Direct Bilirubin 0.09, AST 13 L, ALT 22, Alkaline Phosphatase 77, Total Protein 7.7, Albumin 4.4, Globulin 3.3 07/16/21 04:55: Urine Opiates Screen NEGATIVE, Urine Methadone Screen NEGATIVE, Ur Barbiturates Screen NEGATIVE, Ur Phencyclidine Scrn NEGATIVE, Ur Amphetamines Screen NEGATIVE, MDMA (Ecstasy) Screen NEGATIVE, U Benzodiazepines Scrn POSITIVE H, Urine Cocaine Screen NEGATIVE, U Cannabinoids Screen POSITIVE H, Ur Drug Screen Comment 07/16/21 04:55: Urine Color Yellow, Urine Clarity Clear, Urine pH 8.0, Ur Specific [place] 1.015, Urine Protein 30 H, Urine Glucose (UA) Normal, Urine Ketones 15 H, Urine Occult Blood 10 H, Urine Nitrite Negative, Urine Bilirubin Negative, Urine Urobilinogen 1 H, Ur Leukocyte Esterase Negative, Urine RBC 0 SEEN, Urine WBC 0 SEEN, Ur Squamous Epith Cells 0 SEEN, Amorphous Sediment 1+, Urine Bacteria 2+, Urine Mucus 0 SEEN Radiography Diagnostic Testing: Radiology Impression Brain CT 07/16/21 03:[address] 07/16/21 03:05 IMPRESSION: No acute fracture or subluxation. Electronically Signed: Pako Turner MD at 6:28 EDT Reading Location ID and State: [facility] / [place] Tel , Service support , Chest X-Ray 07/16/21 03:05 IMPRESSION: No radiographic evidence of acute cardiopulmonary disease. Electronically Signed: Pako Turner MD at 6:35 EDT , Physical Exam Narrative General: Agitated, disoriented. Incomprehensible sounds in words. HEENT: Pupils bilaterally mildly dilated. EOMI, Normocephalic. Bruising and swelling over forehead probably fall Oral: Oral mucosa dry. No Gingival or Mucosal Lesions/ Ulcerations. Bilateral tonsils enlarged. Neck: Supple, No JVD, Negative Carotid Bruits Lungs: Air entry diminished in bilateral lung bases. No crepitation/rhonchi Cardiovascular: sinus tachycardia normal S1, Normal S2, No murmurs Abdomen: Bowel Sounds Present, Soft, Non Tender, Non-Distended : No renal angle tenderness. No suprapubic tenderness. Extremities: No edema, Capillary Refill Less than 3 Seconds Skin: No rashes, No breakdown Musculoskeletal: No Tenderness to Palpation of Joints or Extremities Neurological: Detailed neuro unobtainable. GCS 9 Psych/Mental Status: Disorganized behavior. Aggressive. Agitated. Assessment & Plan Assessment/Plan (1) Seizure: PLAN: The patient is a 25 y/o M was admitted with altered mental status. He he had 1 month history of intermittent unpredictable behavior which precipitated to aggressive, agitated followed by generalized body shaking, lethargy, decreased responsiveness and then unresponsive on the day of admission. Patient further admitted in ICU #1. Acute encephalopathy, suspected to be postictal phase secondary to possible new-onset seizure: I had detailed conversation with the mother. Patient has been living with girlfriend. They had verbal argument about 3 to 4 weeks ago. Patient also had multiple ER visits on 06/30 for chest pain and EKG was sinus tachycardia and discharged home after 1 dose of Ativan. Patient had another ER visit on 06/28 for chest pain and was sent home. Patient also had urgent care visit. As per the mother, he had traumatic brain injury as a childhood. He also has history of substance use/opioids in the past. He still uses marijuana but clean from opioids. She is not sure whether he is taking his home medication quetiapine or hydroxyzine. She denies any previous history of suicidal attempt or severe depression although any history of bipolar disorder and schizophrenia/PTSD MRI head was done, with and without contrast and reported normal. Patient is EEG is done. There is concern for seizure. Plan for SOC consult after work-up is done. Overall seems mainly psychotic exacerbation. TSH normal. Ammonia elevated. Lactic acid elevated of unclear importance/significance. Patient does not have signs or symptoms of infection. #2. Anxiety and Depression/Bipolar disorder, PTSD and schizophrenia: hold oral psychotic medications. #3. Cannabis use: UDS with positive cannabis, per discussion with family they deny any other usage. #4. DVT prophylaxis: Low risk. Total time of the visit including total time spent in counseling or coordination of care, (more than 50% of the total time, spent in obtaining medical information from nurses and other ancillary care providers,explaining to the patient about labs, imaging, diagnosis and management), discussion with the patient's mother, son with consultants, review of labs and imaging is 40 minutes. Charges/Coding Procedures Hospitalists Procedures: 96502 Prolonged InPt Service; first hour
[2021-07-16 07:31] LABS: Reflex Lactate? Y
--- NOTE | 2021-07-16 07:42 | TELEMED_ITS ---
SOC Telemed has confirmed receipt of a request for visit. This document confirms receipt of the order initiating the consult. To find the results of the consultation, please view the patient's reports for the scanned Telemed Consult.
[2021-07-16 08:11] LABS: Phosphorus 2.8 mg/dL (2.5-4.9)
[2021-07-16] MEDS: 0.9% Normal Saline 1,000 ML 125 ML IV ×3 (08:13→23:55)
[2021-07-16 08:31] LABS: Magnesium 2.6 mg/dL (1.6-2.6); T4 Free Direct 0.91 ng/dL (0.76-1.46); Thyroid Stim Hormone (TSH) 1.76 uIU/mL (0.358-3.74)
--- NOTE | 2021-07-16 08:49 | EX.PCM.CONCC ---
Assessment & Plan Assessment/Plan (1) Encephalopathy: PLAN: RECOMMENDATIONS: 1. Obtain MRI brain. 2. EEG is pending. 3. Obtain neurology consultation once the above work-up is completed. 4. Avoid sedating medications. 5. Continue IV fluids until diet can be advanced. 6. Resume home psychiatric medications once confirmed. IMPRESSIONS: 1. Encephalopathy Unclear precipitating etiology. Based upon the recollection of events by family members, I do strongly suspect an underlying psychiatric/behavioral disturbance. The patient does not have any prior seizure disorder. He has not demonstrated any seizure-like activity since being transferred to the intensive care unit. MRI brain is pending as well as EEG. Will defer need for further antiepileptics to neurology. Continue current supportive measures and avoid sedating medications, pending improvement in mentation. 2. Lactic acidemia Secondary to possible seizure like activity. No need to trend further. 3. History of prior TBI/anxiety/depression/bipolar disorder/schizophrenia Complicates care, management, recovery and prognosis. It is unclear if the patient is compliant with any of his home psychiatric medications. This will need to be clarified with additional family members. This note was generated with [employer] dictation software. It may contain incorrect words, spelling, and punctuation that were not noted in checking the note before signing. HPI Consult Data Date of Consult: 07/17/21 HPI Narrative Reason for Consultation: Encephalopathy, possible seizures HPI Narrative: The patient is a 25-year-old male, with a history as outlined below, who presented to the emergency department on July 16 with altered mentation. The patient has a history of prior TBI with a multitude of different psychiatric diagnoses including anxiety, depression, bipolar disorder and schizophrenia. The patient has been acting strangely recently and was noted by family members to have periods of decreased responsiveness and episodes of shakiness, concerning for potential convulsions. The patient does not have any known seizure disorder. On presentation to the emergency department, the patient was noted to be afebrile and hemodynamically stable. He was maintaining appropriate oxygen saturations on room air. Laboratory evaluation revealed a white blood cell count of 15,000. Coagulation profile was within normal limits. Chemistry profile was unrevealing. Lactate was elevated at 4.2. Ammonia was increased at 205. Salicylate and acetaminophen levels were unremarkable. Alcohol level was unremarkable. Toxicology screen was positive for benzodiazepines and cannabis. Initial head CT was unremarkable. CT C-spine was unremarkable. Chest x-ray demonstrated no acute cardiopulmonary process. Brain MRI was unremarkable. During his emergency department evaluation, the patient became combative and aggressive. He was medicated with a combination of Benadryl, Versed and Haldol. The patient was loaded with Keppra as well over concerns that his presentation could be related to an undiagnosed seizure disorder. The patient was then transferred to the medical intensive care unit for further management. [facility] Medical History (Updated 07/16/21 @ 10:[address] Darwin Le, DO) Anxiety and depression Bipolar 1 disorder Cannabis use disorder, mild, abuse Manic bipolar I disorder PTSD (post-traumatic stress disorder) Schizophrenia TBI (traumatic brain injury) Home Medications hydroxyzine HCl 25 mg PO QHS #30 tab 06/28/21 [Rx Last Taken Unknown] alprazolam 0.5 mg PO DAILY PRN 07/16/21 [History Last Taken Unknown] bupropion HCl 150 mg PO DAILY 07/16/21 [History Last Taken Unknown] buspirone 10 mg PO TID 07/16/21 [History Last Taken Unknown] divalproex 1,000 mg PO QHS 07/16/21 [History Last Taken Unknown] divalproex 500 mg PO DAILY 07/16/21 [History Last Taken Unknown] quetiapine 300 mg PO QHS 07/16/21 [History Last Taken Unknown] Allergy/AdvReac Type Severity Reaction Status Date / Time Penicillins Allergy Hives Verified 07/16/21 03:11 Family History (Updated 07/16/21 @ 06:[address] Hollie Carvalho MD) Father Heart disease Hypertension Diabetes Family History other Surgical History (Updated 07/16/21 @ 06:[address] Hollie Carvalho MD) History of surgery on arm Social History (Updated 07/16/21 @ 06:[address] Hollie Carvalho MD) household members: significant other Smoking Status: Former smoker Smokeless tobacco user: other alcohol intake: never substance use type: marijuana ROS Review of Systems ROS Unobtainable: due to mental condition and due to mental status Physical Exam Const no apparent distress General Appearance: lethargic HEENT normocephalic and head/scalp atraumatic Eyes PERRL and EOMs intact bilaterally Neck supple General: trachea midline Chest inspection of chest normal Resp normal respiratory effort Auscultation: Negative for rales, rhonchi or wheezes Cardio regular rate and regular rhythm GI normal to inspection, nondistended, normoactive bowel sounds Extremity no clubbing, cyanosis or edema Skin no rashes or lesions noted Neuro Neuro Narrative: The patient is lethargic with minimal responsiveness to verbal stimulation. Lab / Micro Data Result Diagrams: 07/17/21 05:33 07/17/21 05:33 Labs: Laboratory Results - last 24 hr 07/16/21 03:20: WBC 15.2 H, RBC 5.03, Hgb 15.5, Hct 44.8, MCV 89.1, MCH 30.8, MCHC 34.6, RDW Std Deviation 38.7, RDW Coeff of Ryan 11.9, Plt Count 210, MPV 11.3, Immature Gran % (Auto) 0.500, Neut % (Auto) 81.3 H, Lymph % (Auto) 10.9 L, [place] % (Auto) 7.1, Eos % (Auto) 0.0, Baso % (Auto) 0.2, Absolute Neuts (auto) 12.4 H, Absolute Lymphs (auto) 1.66, Nucleated RBC % 0 07/16/21 03:20: Sodium 139, Potassium 3.5, Chloride 108 H, Carbon Dioxide 22.0, Anion Gap 9, BUN 7, Creatinine 0.92, Estim Creat Clear Calc 126.00, Est GFR (MDRD) Af Amer 128, Est GFR (MDRD) Non-Af 106, BUN/Creatinine Ratio 7.6 L, Glucose 96, Calcium 8.9 07/16/21 03:20: Salicylates < 1.7 L, Acetaminophen < 2.0 L, Ethyl Alcohol < 3.0 07/16/21 03:20: Ammonia 205.0 H 07/16/21 03:20: Lactic Acid 4.2 H* 07/16/21 03:20: PT 14.3, INR 1.2, APTT 29.1 07/16/21 03:20: Total Bilirubin 0.40, Direct Bilirubin 0.09, AST 13 L, ALT 22, Alkaline Phosphatase 77, Total Protein 7.7, Albumin 4.4, Globulin 3.3 07/16/21 03:20: Magnesium 2.6, TSH 1.76, Free T4 0.91 07/16/21 03:20: Phosphorus 2.8 07/16/21 04:55: Urine Opiates Screen NEGATIVE, Urine Methadone Screen NEGATIVE, Ur Barbiturates Screen NEGATIVE, Ur Phencyclidine Scrn NEGATIVE, Ur Amphetamines Screen NEGATIVE, MDMA (Ecstasy) Screen NEGATIVE, U Benzodiazepines Scrn POSITIVE H, Urine Cocaine Screen NEGATIVE, U Cannabinoids Screen POSITIVE H, Ur Drug Screen Comment 07/16/21 04:55: Urine Color Yellow, Urine Clarity Clear, Urine pH 8.0, Ur Specific [place] 1.015, Urine Protein 30 H, Urine Glucose (UA) Normal, Urine Ketones 15 H, Urine Occult Blood 10 H, Urine Nitrite Negative, Urine Bilirubin Negative, Urine Urobilinogen 1 H, Ur Leukocyte Esterase Negative, Urine RBC 0 SEEN, Urine WBC 0 SEEN, Ur Squamous Epith Cells 0 SEEN, Amorphous Sediment 1+, Urine Bacteria 2+, Urine Mucus 0 SEEN Radiology Impression Brain CT 07/16/21 03:[address] 07/16/21 03:05 IMPRESSION: No acute fracture or subluxation. Electronically Signed: Pako Turner MD at 6:28 EDT , Chest X-Ray 07/16/21 03:05 IMPRESSION: No radiographic evidence of acute cardiopulmonary disease. Electronically Signed: Pako Turner MD at 6:35 EDT , Charges/Coding Visit Charges Inpatient E&M: 79458 Init Hosp L3
[2021-07-16 11:17] LABS: Lactic Acid 3.4 mmol/L (0.4-1.9)
--- NOTE | 2021-07-16 13:09 | CASEMGMT ---
Per Dr. Simon, pt is medically cleared for crisis c/s at this time. Altagracia MANRIQUE aware, voices understanding. SStalma HEARD CM
--- NOTE | 2021-07-16 13:55 | CASEMGMT ---
Social Work SW received referral for Crisis to see pt due to mental health concerns. Per Dr. Simon, pt is medically cleared. Phone call to Luly at crisis and referral given. Luly states pt will be seen face to face for assessment today. Nursing updated. DAPHNIE Jennings
[2021-07-16] MEDS: busPIRone 5 MG Tablet 10 MG PO ×2 (14:55→21:49)
--- NOTE | 2021-07-16 18:33 | NURSING ---
Reviewed charting with Orville Patterson RN
[2021-07-16] MEDS: Divalproex (ER) 500 MG Tablet 1000 MG PO (21:50)
[2021-07-16] MEDS: Famotidine 200 MG/20 ML MDV 20 MG in 0.9% Normal Saline (Pres. free 8 ML 300 MG IV (21:52)
[2021-07-16] MEDS: QUEtiapine 100 MG Tablet 300 MG PO (23:23)
[2021-07-16] MEDS: Acetaminophen 325 MG Tablet 650 MG PO (23:56)
[2021-07-17 03:00] VITALS: PULSE 63
[2021-07-17 03:47] VITALS: BP 112/67; PULSE 69; RESP 18; TEMP 36.9; O2SAT 98
[2021-07-17 05:40] LABS: Absolute Lymphocyte Count 3.38 X10^3/uL (0.83-4.51); Absolute Neutrophil Count 3.2 X10^3/uL (2.0-7.7); Basophil# 0.01 X10^3/uL; Basophil% 0.1 % (0-1); Eosinophil# 0.03 X10^3/uL; Eosinophils% 0.4 % (0-5); Hematocrit 35.2 % (40-54); Hemoglobin 12.3 g/dL (13.0-16.5); Lymphocyte # 3.38 X10^3/ul (0.83-4.51); Lymphocyte % 44.7 % (19-41); Mean Corp Hgb Conc 34.9 g/dL (32-36); Mean Corpuscular Hgb 31.1 pg (27.0-32.0); Mean Corpuscular Volume 89.1 fL (80-94); Monocyte# 0.97 X10^3/uL; Monocyte% 12.8 % (0-10); NRBC Flagged by Analyzer 0 % (0-5); Neutrophil # 3.15 X10^3/uL (2.7-7.7); Neutrophil % 41.7 % (47-70); Platelet Count 151 K/mm3 (150-450); RBC Distribution Width SD 38.9 fl (35.1-43.9); Red Blood Count 3.95 M/mm3 (4.6-6.2); White Blood Count 7.6 K/mm3 (4.4-11.0)
[2021-07-17 06:03] LABS: ALB/GLOB Ratio 1.3 RATIO (0.9-2.4); AST(SGOT) 10 U/L (15-37); Alanine Aminotransfer ALT/SGPT 16 U/L (16-61); Albumin, Serum 3.1 g/dL (3.2-5.0); Alkaline Phosphatase 57 U/L (45-117); Anion Gap 4 (5-15); BUN 9 mg/dL (7-18); BUN/Creat Ratio 13.2 RATIO (10-20); Calcium,Total 7.6 mg/dL (8.5-10.1); Chloride 115 mmol/L (98-107); Creatinine, Serum 0.68 mg/dL (0.70-1.30); EST Glomerular Filtration Rate 150 mL/min (>60); Est Glom Filt Rate - Afr Amer 181 mL/min (>60); Estimated Creatinine Clearance 159.96 ml/min; Globulin 2.4 g/dL (2.2-4.2); Glucose 96 mg/dL (74-106); Potassium 3.5 mmol/L (3.5-5.1); Protein, Total 5.5 g/dL (6.4-8.2); Sodium Level 142 mmol/L (136-145)
[2021-07-17] MEDS: busPIRone 5 MG Tablet 10 MG PO ×2 (06:25→14:25)
[2021-07-17 07:02] VITALS: PULSE 65
[2021-07-17 07:20] VITALS: O2SAT 99
[2021-07-17] MEDS: 0.9% Normal Saline 1,000 ML 125 ML IV (08:02)
--- NOTE | 2021-07-17 09:34 | PCM.PN.INT ---
Assessment & Plan Assessment/Plan (1) Encephalopathy: PLAN: RECOMMENDATIONS: 1. Continue home psychiatric medications. 2. Encourage incentive spirometer use while in bed and mobilize patient as tolerated. 3. Will sign off from a pulmonary/critical care perspective. Please call with any additional questions. IMPRESSIONS: 1. Encephalopathy Unclear precipitating etiology. Based upon the recollection of events by family members, I do strongly suspect an underlying psychiatric/behavioral disturbance. The patient does not have any prior seizure disorder. He has not demonstrated any seizure-like activity. MRI brain and EEG were unrevealing. Continue current supportive measures and avoid sedating medications. Continue home psychiatric medications. 2. Lactic acidemia Secondary to possible seizure like activity. No need to trend further. 3. History of prior TBI/anxiety/depression/bipolar disorder/schizophrenia Complicates care, management, recovery and prognosis. Continue home medications as indicated. This note was generated with [employer] dictation software. It may contain incorrect words, spelling, and punctuation that were not noted in checking the note before signing. Subjective Subjective The patient was seen and examined at the bedside this morning. Events from the last 24 hours have been reviewed. The patient is currently afebrile, hemodynamically stable and maintaining appropriate oxygen saturations on room air. The patient is now alert and appropriately interactive after being restarted on his home psychiatric medications. EEG and MRI were unrevealing. Objective Data Objective Data The patient's most recent lab work, culture data and imaging studies have all been personally reviewed. Vital Signs: Vital Signs Temp Pulse Resp BP Pulse Ox 98.5 F 65 18 112/67 99 07/17/21 03:47 07/17/21 07:02 07/17/21 03:47 07/17/21 03:47 07/17/21 07:20 Oxygen Delivery Method Room Air Weight: 69.4 kg Body Mass Index (BMI) 22.9 Intake & Output: Intake and Output for Last 24 Hours 07/15/21 07/16/21 07/17/21 23:59 23:59 23:59 Intake Total 4044.58 / 4244.58 1260 / 1260 Output Total 300 / 300 Balance 3744.58 / 3944.58 1260 / 1260 Lab / Micro Data Result Diagrams: 07/17/21 05:33 07/17/21 05:33 Labs: Laboratory Results - last 24 hr 07/16/21 10:25: Lactic Acid 3.4 H* 07/16/21 10:25: Ammonia 57.0 H 07/17/21 05:33: WBC 7.6, RBC 3.95 L, Hgb 12.3 L, Hct 35.2 L, MCV 89.1, MCH 31.1, MCHC 34.9, RDW Std Deviation 38.9, RDW Coeff of Ryan 12.0, Plt Count 151, MPV 11.0, Immature Gran % (Auto) 0.300, Neut % (Auto) 41.7 L, Lymph % (Auto) 44.7 H, [place] % (Auto) 12.8 H, Eos % (Auto) 0.4, Baso % (Auto) 0.1, Absolute Neuts (auto) 3.2, Absolute Lymphs (auto) 3.38, Nucleated RBC % 0 07/17/21 05:33: Sodium 142, Potassium 3.5, Chloride 115 H, Carbon Dioxide 23.0, Anion Gap 4 L, BUN 9, Creatinine 0.68 L, Estim Creat Clear Calc 159.96, Est GFR (MDRD) Af Amer 181, Est GFR (MDRD) Non-Af 150, BUN/Creatinine Ratio 13.2, Glucose 96, Calcium 7.6 L, Total Bilirubin 0.40, AST 10 L, ALT 16, Alkaline Phosphatase 57, Total Protein 5.5 L, Albumin 3.1 L, Globulin 2.4, Albumin/Globulin Ratio 1.3 07/17/21 05:33: Ammonia 100.0 H Radiography Diagnostic Testing: Radiology Impression Brain MRI 07/16/21 06:50 IMPRESSION: Normal MRI brain with and without contrast. Electronically Signed: Jose Wood MD at 10:09 EDT , Physical Exam Const alert and no apparent distress General Appearance: cooperative HEENT normocephalic and head/scalp atraumatic Eyes PERRL and EOMs intact bilaterally Neck supple General: trachea midline Chest inspection of chest normal Resp normal respiratory effort Auscultation: Negative for rales, rhonchi or wheezes Cardio regular rate and regular rhythm GI normal to inspection, nondistended, normoactive bowel sounds Extremity no clubbing, cyanosis or edema Skin no rashes or lesions noted Neuro moves all extremities and no focal motor deficits Psych cooperative and affect normal Charges/Coding Visit Charges Inpatient E&M: 45814 Subs Hosp L2
--- NOTE | 2021-07-17 09:39 | CASEMGMT ---
Social Work Per notes from [facility], pt does not meet criteria for inpatient psychiatric placement. Cleared for discharge home from mental health perspective. Pt does have a followup appointment with psychiatric services at the [facility], Bruce Delaney NP, on Friday 07/21 at 12:15. spoke with Dr. Simon and pt will be discharged home today. DAPHNIE Jennings
[2021-07-17 09:40] VITALS: BP 131/99; PULSE 79; RESP 18; TEMP 36.6; O2SAT 100
[2021-07-17] MEDS: Divalproex (ER) 500 MG Tablet PO (09:40)
[2021-07-17] MEDS: Famotidine 200 MG/20 ML MDV 20 MG in 0.9% Normal Saline (Pres. free 8 ML 300 MG IV (09:42)
[2021-07-17 11:25] LABS: CPK Total, Creatine Kinase 219 U/L (39-308)
[2021-07-17 11:31] LABS: Ferritin 205 ng/mL (26-388)
--- NOTE | 2021-07-17 11:41 | DCINST_ITS ---
Discharge Instructions Diet Discharge Diet: No restrictions Activity Discharge Activity: May Not Drive Dressing / Incision Call your doctor if you observe: Fever of 101 or Higher, Coldness, Increased Pain, Numbness or Tingling, Change in Color, Inability to urinate, Inability to have a bowel movement, Shortness of breath, Dizziness, Fainting spells, Swelling in the ankles, Chest pain, Prolonged hiccupping, Increased palpitations (irregular heartbeat), Calf discomfort and Uncontrolled pain Follow Up Care Test Results: Test results from this visit will be discussed in further detail at your follow-up appointment, if applicable. Discharge Plan Admission Admit Date/Time: 07/16/21 06:40 Primary Reason for Your Visit: Acute encephalopathy Attending Provider: Caleb Simon Primary Care Provider: Deon Kaur,Julita Primary Consulting Providers: Darwin Le Discharge Orders/Prescriptions Prescriptions: New lactulose 20 gram/30 mL solution 20 g PO BID Qty: 900 RF: 0 Xifaxan 550 mg Tablet 550 mg PO BID Qty: 60 RF: 0 sulfamethoxazole-trimethoprim [Bactrim DS] 800-160 mg tablet 1 tab PO BID Qty: 12 RF: 0 Continued hydroxyzine HCl 25 mg tablet 25 mg PO QHS Qty: 30 RF: 0 quetiapine 300 mg Tablet 300 mg PO QHS RF: 0 divalproex 500 mg Tablet,Delayed Release (Dr/Ec) 500 mg PO DAILY RF: 0 divalproex 500 mg Tablet,Delayed Release (Dr/Ec) 1,000 mg PO QHS RF: 0 alprazolam 0.5 mg Tablet 0.5 mg PO DAILY PRN (Reason: severe anxiety) RF: 0 Held bupropion HCl 150 mg Tablet Extended Release 24 Hr 150 mg PO DAILY RF: 0 Hold Instructions: Hold until sees the psychiatrist Discontinued buspirone 10 mg Tablet 10 mg PO TID RF: 0 Referrals / Follow Up: Care Physician,No Primary [Primary Care Provider] - Saud Delaney NP, [facility] MANAGER[facility] [NON-STAFF] - 07/21/21 12:15 pm ( )
--- NOTE | 2021-07-17 11:51 | PCM.DC.SUM ---
Providers Date of Admission: 07/16/21 Date of Discharge: 07/17/21 Primary Care Physician: Julita Primary Care Phys Consultations 07/16/21 07:42 Consult: Machine Shop Apprentice / Pulmonary Medicine Routine Consulting Provider: Darwin Le Reason for Consult: Encephalopathy, possible seizures EMERGENT Consult: No Notified: Yes Date Notified: 07/16/21 Time Notified: 06:46 Method of Notification: discussed on phone 07/17/21 10:48 Consult: Gastroenterology Routine Consulting Provider: Gloria Gastroenter[facility] Reason for Consult: High ammonia level, intermittent N/V for 1 month EMERGENT Consult: No Notified: Yes Date Notified: 07/17/21 Time Notified: 10:48 Method of Notification: Verbal Reason For Visit: ENCEPHALOPATHY, SEIZURE SUSPECTED Diagnosis Discharge Diagnosis (1) Encephalopathy: Status: Acute Code(s): G93.40 - Encephalopathy, unspecified Medications at Discharge Home Medications hydroxyzine HCl 25 mg PO QHS #30 tab 06/28/21 alprazolam 0.5 mg PO DAILY PRN 07/16/21 bupropion HCl 150 mg PO DAILY 07/16/21 divalproex 1,000 mg PO QHS 07/16/21 divalproex 500 mg PO DAILY 07/16/21 quetiapine 300 mg PO QHS 07/16/21 lactulose 20 g PO BID #900 ml 07/17/21 rifaximin [Xifaxan] 550 mg PO BID #60 tab 07/17/21 sulfamethoxazole-trimethoprim [Bactrim DS] 1 tab PO BID #12 tab 07/17/21 Hospital Course Summary of Care Provided Hospital Course: The patient is a 25 y/o M was admitted with altered mental status. He he had 1 month history of intermittent unpredictable behavior which precipitated to aggressive, agitated followed by generalized body shaking, lethargy, decreased responsiveness and then unresponsive on the day of admission. Patient further admitted in ICU #1. Acute encephalopathy, suspected to be postictal phase secondary to possible new-onset seizure: I had detailed conversation with the mother. Patient has been living with girlfriend. They had verbal argument about 3 to 4 weeks ago. Patient also had multiple ER visits on 06/30 for chest pain and EKG was sinus tachycardia and discharged home after 1 dose of Ativan. Patient had another ER visit on 06/28 for chest pain and was sent home. Patient also had urgent care visit. As per the mother, he had traumatic brain injury as a childhood. He also has history of substance use/opioids in the past. He still uses marijuana but clean from opioids. U tox positive for benzodiazepines, cannabinoids. Serum acetaminophen level, alcohol level normal. She is not sure whether he is taking his home medication quetiapine or hydroxyzine. She denies any previous history of suicidal attempt or severe depression although any history of bipolar disorder and schizophrenia/PTSD MRI head was done, with and without contrast and reported normal. Overall seems mainly psychotic exacerbation. Patient had EEG done which showed mild generalized nonspecific slowing with no epileptiform discharges. SOC consult was done.TSH normal. Lactic acid elevated of unclear importance/significance. Patient does not have signs or symptoms of infection. Ammonia is elevated 200, 50 1700. Discussed with the SOC neurologist, Dr. Pablo and he advised GI consult, check Depakote level. His opinion was to discontinue Keppra as it can aggravate behavioral problem. Serum valproic acid level is 67, normal. Patient has follow-up in psychiatry clinic at 1215 on on 07/21/2021. I talked to MARK Arias [phone] and confirmed appointment. Discharge meds reconciliation done and bupropion and BuSpar discontinued as it lowers the seizure threshold. Patient is discharged on Depakote and other home medications. I discussed with the shale processing technician Dr. Cullen and started on lactulose and Xifaxan. He ordered serum copper, ceruloplasmin level,orotic and ferritin which takes time. CK 219 normal. Ferritin 205 normal. Serum alkaline phosphatase normal and total bili normal therefore low suspicion for Sylvain disease. Follow labs with Dr. Cullen as an outpatient. 2. Mild UTI: UA is positive +2+ bacteria, 0 WBC, 0 RBC, negative nitrite and LE. Urine culture pending. Patient empirically given IV ceftriaxone and discharged on Bactrim DS for 6 more days to complete a total of 7 days. If urine culture negative, can discontinue antibiotic. #2. Anxiety and Depression/Bipolar disorder, PTSD and schizophrenia: hold oral psychotic medications. #3. Cannabis use: UDS with positive cannabis, per discussion with family they deny any other usage. #4. DVT prophylaxis: Low risk. Discharge medication reconciliation done. Discharge follow-up instructions completed. Discharge process discussed with the patient and her mother near the bedside and all questions were answered to patient's satisfaction. He has appointment to the psychiatric facility at 1250 noon on 07/21/2021 and discharge medications discussed. She asked me to fax the documentation regarding present admission and communicate charge nurse. Fax #[phone]. Total time spent, exact 35 minutes on discharge meds reconciliation, examination, coordination of care with nurses and ancillary staff, review of imaging and blood test and discussion with the patient on follow-up instructions. Physical Exam Narrative Seen and examined. Patient stated he was taking Mckee which is an herbal medication containing multiple minerals for long time.. Patient was prescribed Depakote but he has not been taking at least for the last 3 years. Patient uses marijuana. He also complains of mild burning micturition today which he has intermittently. General: awake, alert oriented x3 HEENT: PERRLA EOMI, Normocephalic. Bruising and swelling over forehead probably fall Oral: Oral mucosa dry. No Gingival or Mucosal Lesions/ Ulcerations. Bilateral tonsils enlarged. Neck: Supple, No JVD, Negative Carotid Bruits Lungs: Air entry equal in bilateral lung bases. No crepitation/rhonchi Cardiovascular: Normal sinus rhythm, normal S1, Normal S2, No murmurs Abdomen: Bowel Sounds Present, Soft, Non Tender, Non-Distended : No renal angle tenderness. No suprapubic tenderness. Extremities: No edema, Capillary Refill Less than 3 Seconds Skin: No rashes, No breakdown Musculoskeletal: No Tenderness to Palpation of Joints or Extremities Neurological: Detailed neuro unobtainable. GCS 9 Psych/Mental Status: Appropriate behavior. Weight / BMI Weight Weight: 153 lb 0.013 oz Body Mass Index (BMI) 22.9 ABG / Lab / Microbiology Data Result Diagrams: 07/17/21 05:33 07/17/21 05:33 Laboratory: Laboratory Results - last 24 hr 07/17/21 05:33: WBC 7.6, RBC 3.95 L, Hgb 12.3 L, Hct 35.2 L, MCV 89.1, MCH 31.1, MCHC 34.9, RDW Std Deviation 38.9, RDW Coeff of Ryan 12.0, Plt Count 151, MPV 11.0, Immature Gran % (Auto) 0.300, Neut % (Auto) 41.7 L, Lymph % (Auto) 44.7 H, Glenn % (Auto) 12.8 H, Eos % (Auto) 0.4, Baso % (Auto) 0.1, Absolute Neuts (auto) 3.2, Absolute Lymphs (auto) 3.38, Nucleated RBC % 0 07/17/21 05:33: Sodium 142, Potassium 3.5, Chloride 115 H, Carbon Dioxide 23.0, Anion Gap 4 L, BUN 9, Creatinine 0.68 L, Estim Creat Clear Calc 159.96, Est GFR (MDRD) Af Amer 181, Est GFR (MDRD) Non-Af 150, BUN/Creatinine Ratio 13.2, Glucose 96, Calcium 7.6 L, Total Bilirubin 0.40, AST 10 L, ALT 16, Alkaline Phosphatase 57, Total Protein 5.5 L, Albumin 3.1 L, Globulin 2.4, Albumin/Globulin Ratio 1.3 07/17/21 05:33: Ammonia 100.0 H 07/17/21 05:33: Ferritin 205 07/17/21 05:33: Total Creatine Kinase 219 D/C Instructions Discharge Diet: No restrictions Call your doctor if you observe: Fever of 101 or Higher, Coldness, Increased Pain, Numbness or Tingling, Change in Color, Inability to urinate, Inability to have a bowel movement, Shortness of breath, Dizziness, Fainting spells, Swelling in the ankles, Chest pain, Prolonged hiccupping, Increased palpitations (irregular heartbeat), Calf discomfort and Uncontrolled pain Meaningful Use Info Meaningful Use Diagnoses (Choose all that apply): None applicable Discharge Plan Admission Admit Date/Time: 07/16/21 06:40 Primary Reason for Your Visit: Acute encephalopathy Attending Provider: Caleb Simon Primary Care Provider: Kelli Hurtado Consulting Providers: Darwin Le Discharge Orders/Prescriptions Prescriptions: New lactulose 20 gram/30 mL solution 20 g PO BID Qty: 900 RF: 0 Xifaxan 550 mg Tablet 550 mg PO BID Qty: 60 RF: 0 sulfamethoxazole-trimethoprim [Bactrim DS] 800-160 mg tablet 1 tab PO BID Qty: 12 RF: 0 Continued hydroxyzine HCl 25 mg tablet 25 mg PO QHS Qty: 30 RF: 0 quetiapine 300 mg Tablet 300 mg PO QHS RF: 0 divalproex 500 mg Tablet,Delayed Release (Dr/Ec) 500 mg PO DAILY RF: 0 divalproex 500 mg Tablet,Delayed Release (Dr/Ec) 1,000 mg PO QHS RF: 0 alprazolam 0.5 mg Tablet 0.5 mg PO DAILY PRN (Reason: severe anxiety) RF: 0 Held bupropion HCl 150 mg Tablet Extended Release 24 Hr 150 mg PO DAILY RF: 0 Hold Instructions: Hold until sees the psychiatrist Discontinued buspirone 10 mg Tablet 10 mg PO TID RF: 0 Referrals / Follow Up: Kelli Hurtado MD [Primary Care Provider] - 07/21/21 3:20 pm Sourav Timmons MD [STAFF PHYSICIAN] - 09/29/21 9:00 am Shar Cullen DO [STAFF PHYSICIAN] - 08/13/21 8:45 am Saud Delaney NP, PSYCHIATRIC SECURITY NURSE-C [NON-STAFF] - 07/21/21 12:15 pm ( ) Disposition Discharge Orders: Discharge Patient (Routine); Ordered 07/17/21 Ordered By: Dr. Caleb Simon Charges/Coding Visit Charges Inpatient E&M: 84238 Disch Hosp
[2021-07-17 12:30] LABS: Valproic Acid (Depakene) Level 67 ug/mL (50-100)
[2021-07-17] MEDS: Ceftriaxone 1 GM/50 ML BAG IV (12:38)
[2021-07-17] MEDS: rifAXIMin 550 MG Tablet PO (12:38)
[2021-07-17] MEDS: Lactulose 20 GM/30 ML UDC PO (12:38)
--- NOTE | 2021-07-17 12:43 | NURSING ---
Patient took ekg monitor off and refused to let RN put back on. Patient stated the doctor told me I do not need to wear it since I am being discharged today
--- NOTE | 2021-07-17 14:00 | CASEMGMT ---
ORQUIDEA ALMENDAREZ COMPOSITION MIXER ERICKSON to room to meet with patient for initial transition planning/care coordination assessment. ORQUIDEA ALMENDAREZ introduced self and role at [facility]. Pt voices understanding and consents to assessment at this time. Pt resting in bed in no distress at this time. Mother present @ bedside. Pt is A/O at this time and answers all questions appropriately. Care providers, pharmacy, and demographics verified/updated at this time. PCP: Pt was seeing Dr Luciano @ [facility], but he is no longer there. Pt has not been back to see another physician there since then, but would like to go back to [place] for f/u appt. ORQUIDEA ALMENDAREZ placed call to [place]. Pt states he is moving to [place] next week, and is leaving Wednesday. Appt made for Friday 07/21 @ 3:20 PM w/Dr Hurtado, who is seeing Dr Luciano's patients. Pt and mother made aware and voices appreciation. Appt documented in discharge plan. Specialists: [facility] and is aware of appt on 07/21 @ 12:15. Pt also made aware appts have been made w/Dr Cullen in August and Dr Villagran in September and that these appts will be on his discharge paperwork. Pt made aware, if he does get established in another state, that he needs to look into getting new insurance in that state, get established w/a PCP in network w/his insurance, and ask for referrals to GI specialist and neurologist there that are in network w/his insurance. Preferred Pharmacy:[facility] Insurance: [employer] Prescription Benefit: Yes Living Will/HPOA: [facility] does not have LW or HCPOA . Interested in more information but [facility] does not want to talk with SW at this time to complete paperwork. Provided pt w/Social Service rac card with number to call if chooses in the future to utilize [facility] social work for advanced directive completion. Pt was informed that AD do not go [id number], and that he would need to complete new AD in [place], if he chooses to complete these. LNOK: Mother, Malou Presley. Father, Steve Gardner. Living Arrangements: Pt lives w/girlfriend in one-story home w/basement. Independent. Transportation: Pt states drives self and states no transportation concerns at this time. DME: Denies using any DME and denies needs. HHC/SNF: No hx of either and no needs identified. Pt wishes to return home and states has no concerns with going home at time of discharge. Pt voices no further concerns/needs at this time. Advised pt to ask for CM if any further questions/concerns/needs arise. Voices understanding. PLAN: Home w/support of girlfriend and family. Taylor KRISHNANN RN CM
[2021-07-17 15:28] VITALS: BP 134/98; PULSE 84; RESP 20; TEMP 36.6; O2SAT 100
--- NOTE | 2021-07-17 16:01 | NURSING ---
Reviewed charting with Orville Patterson RN
[2021-07-18 13:44] LABS: Ceruloplasmin 12.3 mg/dL (16.0-31.0)
[2021-07-22 16:19] LABS: Copper, Serum or Plasma 65 ug/dL (63-121)
== END 2021-07-17 15:43 | disposition home or self-care (01) | DRG 53 ==
LOC: ED 06:53 → ICU 06:56 → PCU 07-17 07:58
PROVIDERS: Internal Medicine Critical Care Medicine; Admitting Provider Family Medicine; Emergency Provider Emergency Medicine; PCP Family Medicine; Visit Provider Internal Medicine
DX: R56.9 Unspecified convulsions (principal); G93.49 Other encephalopathy; F31.9 Bipolar disorder, unspecified; F20.9 Schizophrenia, unspecified; E87.2 Acidosis; E86.0 Dehydration; F12.90 Cannabis use, unspecified, uncomplicated; F41.9 Anxiety disorder, unspecified; N39.0 Urinary tract infection, site not specified; F43.10 Post-traumatic stress disorder, unspecified; Z87.820 Personal history of traumatic brain injury; Z87.891 Personal history of nicotine dependence
CPT/HCPCS: 36415; 70450; 70553; 71045; 72125; 80048; 80053; 80076; 80164; 80307; 80329; 81001; 82077; 82140; 82390; 82525; 82550; 82728; 83605; 83735; 84100; 84439; 84443; 85025; 85610; 85730; 87086; 87088; 93005; 95819; 99284; 99406; A9581; J7030; G0480; J3490

== ENCOUNTER 2021-07-21 16:00 | Outpatient (CLI) | payer MEDICAID, SELFPAY ==
[2021-07-21 18:28] LABS: ALB/GLOB Ratio 1.3 RATIO (0.9-2.4); AST(SGOT) 8 U/L (15-37); Alanine Aminotransfer ALT/SGPT 20 U/L (16-61); Albumin, Serum 4.2 g/dL (3.2-5.0); Alkaline Phosphatase 74 U/L (45-117); Anion Gap 8 (5-15); BUN 9 mg/dL (7-18); BUN/Creat Ratio 9.9 RATIO (10-20); Calcium,Total 9.2 mg/dL (8.5-10.1); Chloride 106 mmol/L (98-107); Creatinine, Serum 0.91 mg/dL (0.70-1.30); EST Glomerular Filtration Rate 107 mL/min (>60); Est Glom Filt Rate - Afr Amer 129 mL/min (>60); Globulin 3.2 g/dL (2.2-4.2); Glucose 92 mg/dL (74-106); Potassium 4.1 mmol/L (3.5-5.1); Protein, Total 7.4 g/dL (6.4-8.2); Sodium Level 138 mmol/L (136-145)
[2021-07-21 18:30] LABS: Valproic Acid (Depakene) Level 139 ug/mL (50-100)
[2021-07-24 09:17] LABS: Vitamin D,25 Hydroxy 35.4 ng/mL
== END 2021-07-21 23:59 | disposition home or self-care (01) ==
LOC: MFPLAB 16:07
PROVIDERS: PCP Family Medicine; Referring Provider Family Medicine; Visit Provider Nurse Practitioner Family
DX: Z79.899 Other long term (current) drug therapy (principal)
CPT/HCPCS: 36415; 80053; 80164; 82140; 82306

== ENCOUNTER 2023-09-22 21:48 | Emergency (ER) | payer MEDICAID, SELFPAY ==
[2023-09-22 21:49] VITALS: BP 123/80; PULSE 83; RESP 16; TEMP 36.3; O2SAT 98
--- NOTE | 2023-09-22 22:30 | EKG12_ITS ---
Test Reason : CP Blood Pressure : / mmHG Vent. Rate : 073 BPM Atrial Rate : 073 BPM P-R Int : 150 ms QRS Dur : 084 ms QT Int : 358 ms P-R-T Axes : 069 070 058 degrees QTc Int : 394 ms Normal sinus rhythm Normal ECG Confirmed by CASTRO ROLLINS, MIRA ([id number]), metropolitan editor GISSEL AGUIRRE ([id number]) on 09/27/2023 11:40:00 AM Referred By: DAYRON Confirmed By:MIRA ERAZO MD
--- NOTE | 2023-09-22 22:43 | ED.RN ---
Pt up to triage desk and stating his pain is gone and he was leaving. LWBS
== END 2023-09-22 22:41 | disposition left against medical advice (07) ==
LOC: ED 22:43
PROVIDERS: PCP Family Medicine
DX: Z53.21 Procedure and treatment not carried out due to patient leaving prior to being seen by health care provider (principal)
CPT/HCPCS: 93005

== ENCOUNTER 2024-03-06 18:09 | Emergency (ER) | payer MEDICAID, SELFPAY ==
--- NOTE | 2024-03-06 18:10 | RAD_ITS ---
STUDY: X-RAY - RIGHT WRIST REASON FOR EXAM: Male, 28 years old. Patient felt pop, injury TECHNIQUE: 3 view(s) of the wrist were obtained. COMPARISON: None. FINDINGS: Normal visualized distal radius and ulna. Normal radiocarpal articulation. Normal distal radioulnar articulation. Normal carpal bones. Normal carpal articulations. Normal carpometacarpal articulation of the thumb. Normal second through fifth carpometacarpal articulations. Normal visualized metacarpal bones. The soft tissue structures are unremarkable. There is no demonstrated acute fracture. RAD/Wrist min 3 Views IMPRESSION: Normal x-ray examination of the wrist. Electronically Signed: Carlos Eduardo Feldman MD at 19:18 EST ,
[2024-03-06 18:11] VITALS: BP 120/73; PULSE 72; RESP 18; TEMP 36; O2SAT 100; BMI 21.9
[2024-03-06 20:28] VITALS: BP 120/73; PULSE 72; RESP 18; TEMP 36; O2SAT 100
--- NOTE | 2024-03-06 20:35 | EDS_ITS ---
HPI History of Present Illness Chief Complaint: Upper Extremity Injury Informant: patient Narrative Narrative: Healthy 20-year-old [id number] male injured his right wrist 1.5 weeks ago and is still having persistent significant pain. He states he was grasping something at work really hard, to the point where he felt a sudden pain in the dorsum of his wrist that radiated distally and proximally but the pain has been there ever since. Hurts a lot to move his wrist. He denies any neurologic symptoms right now. No other injuries. [facility] Medical History Anxiety and depression TBI (traumatic brain injury) Cannabis use disorder, mild, abuse Schizophrenia PTSD (post-traumatic stress disorder) Manic bipolar I disorder Bipolar 1 disorder Home Medications ?Medication ?Instructions ?Recorded ?Last Taken ?Type NK 09/22/23 Unknown History naproxen 500 mg tablet (Naprosyn) 500 mg PO BID PRN pain #14 tabs 03/06/24 Unknown Rx Allergy/AdvReac Type Severity Reaction Status Date / Time Penicillins Allergy Hives Verified 03/06/24 18:10 Family History (Updated 07/16/21 @ 06:[address] Hollie Carvalho MD) Father Heart disease Hypertension Diabetes Surgical History (Updated 07/16/21 @ 06:[address] Hollie Carvalho MD) History of surgery on arm Social History (Updated 07/16/21 @ 06:[address] Hollie Carvalho MD) household members: significant other Smoking Status: Current every day smoker tobacco type: cigarettes Smokeless tobacco user: other alcohol intake: never substance use type: marijuana ROS ROS ED Constitutional Constitutional ED: Denies chills or fever(s) Musculoskeletal Musculoskeletal: Reports extremity pain; Denies neck pain Integumentary Denies Abrasions, rash or wounds Neurologic Neurologic: Denies paresthesias or weakness EXAM Physical Exam Const Vital Signs: 03/06/24 18:11 03/06/24 20:28 Temperature 96.8 F L 96.8 F L Temperature Source Temporal Pulse Rate 72 72 Respiratory Rate 18 18 Blood Pressure 120/73 120/73 Blood Pressure Mean 88 88 Pulse Ox 100 100 Oxygen Delivery Method Room Air Positive well nourished and well developed General Appearance ED: well developed and NAD Neck full ROM and supple Back/Spine normal ROM and normal to inspection Extremity Extremity Narrative: No deformities of the right wrist or hand. All tendon function intact. Limited range of motion of the wrist due to pain. He has pain and tenderness mostly dorsally at the radial aspect of the carpus, not at the snuffbox just a little ulnar to that, in the area where the capitate is.. Neuro oriented x3, no focal motor deficits and no sensory deficits noted Sensorium / Orientation: alert Psych mental status grossly normal and thought process normal Skin no wounds Rashes: no rashes MDM MDM MDM Narrative Medical decision making narrative: Three-view x-ray series of the right wrist on my interpretation negative for acute fracture or dislocation. There is no scapholunate dissociation, but there is some prominence of the space between the lunate and the triquetrum. I discussed with Dr. Humphrey, he agrees but states this may be based on the view, and agrees with having the patient splinted and following up in the office for evaluation possible MRI. Patient given a prescription for NSAID as well. Radiography Diagnostic Testing: Clinical Impression(s) from Imaging Studies Wrist X-Ray 03/06/24 18:10 IMPRESSION: Normal x-ray examination of the wrist. Electronically Signed: Carlos Eduardo Feldman MD at 19:18 EST , Management Discussion w/another healthcare provider: Avionics Technician (Nawaf Humphrey) Discharge Plan Triage Chief Complaint: Upper Extremity Injury ED Provider: Carlos Eduardo Hernandez Dx/Rx/DC Orders Clinical Impression: Sprain of carpal joint of right wrist Instructions: ED Wrist Sprain Prescriptions: New naproxen [Naprosyn] 500 mg tablet 500 mg PO BID PRN (Reason: pain) Qty: 14 0RF No Action NK Primary Care Provider: Kelli Hurtado Referrals: Kelli Hurtado MD [Primary Care Provider] - Gabriel Humphrey DO [Med Staff - Active Staff] - As soon as possible Print Language: Brazilian Disposition Disposition: Home, Self Care
--- NOTE | 2024-03-06 20:46 | ED.RN ---
Velcro splint applied to R wrist. Patient educated on application and management of splint.
== END 2024-03-06 20:58 | disposition home or self-care (01) ==
PROVIDERS: Emergency Provider Emergency Medicine; PCP Family Medicine; Visit Provider Emergency Medicine
DX: S63.511A Sprain of carpal joint of right wrist, initial encounter (principal); F17.210 Nicotine dependence, cigarettes, uncomplicated; X58.XXXA Exposure to other specified factors, initial encounter
CPT/HCPCS: 73110; 99283

== ENCOUNTER 2024-11-01 00:43 | Emergency (ER) | payer SELFPAY ==
[2024-11-01 00:43] VITALS: BP 125/74; PULSE 89; RESP 12; TEMP 36.6; O2SAT 100; BMI 23.7
--- NOTE | 2024-11-01 00:55 | EKG12_ITS ---
Test Reason : CP Blood Pressure : */* mmHG Vent. Rate : 85 BPM Atrial Rate : 85 BPM P-R Int : 136 ms QRS Dur : 80 ms QT Int : 356 ms P-R-T Axes : 69 51 44 degrees QTcB Int : 423 ms Normal sinus rhythm Normal ECG Confirmed by Ladarius Santizo ([id number]), photo editor ZARA ACOSTA ([id number]) on 11/02/2024 11:43:37 AM Referred By: RAQUEL Confirmed By: Ladarius Santizo
[2024-11-01 01:39] LABS: Hematocrit 44.3 % (40-54); Hemoglobin 15.6 g/dL (13.0-16.5); Immature Granulocytes Count 0.040 X10^3/uL (0.0-0.0); Mean Corp Hgb Conc 35.2 g/dL (32-36); Mean Corpuscular Volume 89.0 fL (80-94); Mean Platelet Vol. 10.7 fl (6.2-12.0); NRBC Flagged by Analyzer 0 % (0-5); Platelet Count 221 K/mm3 (150-450); RBC Distribution Width CV 11.8 % (11.6-14.6); RBC Distribution Width SD 37.5 fl (35.1-43.9); Red Blood Count 4.98 M/mm3 (4.6-6.2); White Blood Count 9.5 K/mm3 (4.4-11.0)
[2024-11-01 01:43] VITALS: BP 114/79; PULSE 81; RESP 14; O2SAT 99
[2024-11-01] MEDS: Lorazepam 2 MG/ML WCH Syringe 1 MG IV (01:43)
[2024-11-01] MEDS: 0.9% Normal Saline (1000mL) 1,000 ML 999 ML IV (01:43)
[2024-11-01 01:55] LABS: D-Dimer Quantitative (DVT/PE) < 0.27 FEU/ug/m (0.27-0.49)
--- OUTSIDE RECORDS SUMMARY | 2024-11-01 01:59 | XMS RPT_ITS | CCD ---
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 Chago Landers Emergency Provider Dr. Hollie Carvalho Attending Provider [phone] Hollie Carvalho Admit Provider Dr. Caleb Simon Other Provider [phone] Dr. Darwin Le Attending Provider Dr. Darwin Le Other Provider Dr. Caleb Simon Attending Provider [phone] Kelli Hurtado Primary Care Provider Dr. Caleb Simon Referring Provider Dr. Kelli Hurtado Primary Care Provider [phone] GEOVANNY CALERO MD Attending Unavailable PHYSICIAN, NONE Primary Care Unavailable PHYSICIAN, NONE Primary Care Physician Unavailab le Unavailable Primary Care Provider Unavailabl Carlos Eduardo Clemente Attending Unavailable Kelli Hurtado Primary Care Unavailable Assessment, Health Risk Attending Unavaila ble Kelli Hurtado Primary Care Unavailable Provider, Ed Physician Attending Unavailab Kelli Mcmanus Primary Care Unavailable Kelli Hurtado Primary Care Unavailable Kelli Hurtado Referring Unavailable Daniel Clarke Attending Unavailable Dr. Kelli Hurtado MD Primary Care Provider Dr. Kelli Hurtado MD Referring Provider Emanuel Martinez Attending Provider [phone] Allergies Allergy Classification Reported Allergen(s) Allergy Type Date of Onset Reaction(s) Facility (16 sources) Penicillins; Translations: [Unknown] Propensity to adverse reactions to drug (disorder) 5 Rash, Hives [facility] (1 source) Non-steroidal anti-inflammator y agent; Translations: [nonsteroidal anti-inflammator y agents] Drug allergy [facility] (1 source) Penicillin; Translations: [penicillins] Drug Allergy [facility] Medications Current Medications Medication Drug Class(es) Dates Sig (Normalized) Sig (Original) [id number] 200 actuat albuterol 0.09 mg/actuat metered dose inhaler (3 sources) beta2-Adrenergic Agonist Start: 04-09-2020 take 2 puff(s) by inhalation every four hours as needed albuterol HFA (PROAIR HFA) 90 mcg/actuation inhaler Indications: Suspected COVID-19 virus infection Inhale 2 Puffs as instructed every 4 hours as needed. 18 g 04/09/2020 Active ALPRAZolam 0.5 mg oral tablet (3 sources) Benzodiazepine Start: 07-16-2021 End: 09-22-2023 take 0.5 mg by mouth once daily Alprazolam Active 0.5 MG PO DAILY July 16, 2021 12:21pm dextromethorphan hydrobromide 3 mg/ml / promethazine hydrochloride 1.25 mg/ml oral solution (2 sources) Phenothiazine, Uncompetitive K-prkicb-D-aspartate Receptor Antagonist, Sigma-1 Agonist Start: 12-11-2020 take 5 mL by mouth every six hours as needed for cough and cough Promethazine-DM (PHENERGAN-DM) 6.25-15 mg/5 mL syrup Indications: Cough Take 5 mL by mouth four times daily as needed. 180 mL 12/11/2020 Active hydrOXYzine hydrochloride 25 mg oral tablet (8 sources) Antihistamine Start: 06-28-2021 End: 09-22-2023 take 25 mg by mouth at bedtime Hydroxyzine Hcl Active 25 MG PO AT BEDTIME June 28, 2021 7:18pm lactulose 667 mg/ml oral solution (3 sources) Osmotic Laxative Start: 07-17-2021 End: 09-22-2023 take 20 g by mouth twice daily Lactulose Active 20 GM PO TWICE A DAY 900 July 17, 2021 11:43am lidocaine 0.05 mg/mg medicated patch (1 source) Antiarrhythmic, Amide Local Anesthetic Start: 04-19-2022 End: 04-29-2022 Lidoderm 5% topical patch Apply 1 patch(es), Transdermal, Daily, X 10 day(s), # 10 patch(es), 0 Refill(s), 68.2 Start Date: 04/19/22 Stop Date: 04/29/22 Status: Ordered naproxen 500 mg oral tablet (1 source) Nonsteroidal Anti-inflammatory Drug Start: 03-06-2024 take 1 tablet by mouth twice daily as needed for pain Naproxen (Naprosyn) 500 mg tablet Active 500 mg PO TWICE A DAY as needed for pain 14 0 March 06, 2024 1:00am [place] (Nk) (1 source) Start: 09-22-2023 [place] (Nk) Active September 22, 2023 12:00am omeprazole 20 mg delayed release oral capsule (1 source) Proton Pump Inhibitor Start: 10-08-2019 omeprazole 20 mg oral delayed release capsule 0 Refill(s) Start Date: 10/08/19 Status: Ordered QUEtiapine 300 mg oral tablet (17 sources) Atypical Antipsychotic Start: 07-16-2021 End: 09-22-2023 take 300 mg by mouth at bedtime Quetiapine Active 300 MG PO AT BEDTIME July 16, 2021 12:21pm Start: 10-12-2017 SEROquel Oral, 0 Refill(s) Start Date: 10/12/17 Status: Ordered Start: 09-25-2017 Quetiapine (Se roquel) 100 MG tablet Active 150 MG PO AT BEDTIME NEEDED September 25, 2017 1:06am take 1 tablet by maeve th once daily at bedtime QUEtiapine (SEROQUEL) 200 mg tablet Take 200 mg by mouth daily at bedtime. Active take 1 tablet by maeve th once daily QUEtiapine (SEROQUEL) 50 mg tablet Take 50 mg by mouth once daily. Active QUEtiapine Fumar ate (SEROQUEL PO) Take by mouth 0 Active take 1 tablet by maeve th once daily QUEtiapine (SEROQUEL) 25 MG tablet Take 25 mg by mouth nightly . 0 Active rifAXIMin 550 mg oral tablet (3 sources) Rifamycin Antibacterial Start: 07-17-2021 End: 09-22-2023 take 1 tablet by mouth twice daily Rifaximin (Xifaxan) 550 mg Tablet Active 550 MG PO TWICE A DAY 60 July 17, 2021 11:43am sulfamethoxazole 800 mg / trimethoprim 160 mg oral tablet (3 sources) Dihydrofolate Reductase Inhibitor Antibacterial, Sulfonamide Antimicrobial Start: 07-17-2021 End: 09-22-2023 take 1 tablet by mouth twice daily Sulfamethoxazol e-Trimethoprim (Bactrim Ds) 800-160 mg tablet Active 1 TABLET PO TWICE A DAY 12 July 17, 2021 11:44am divalproex sodium 500 mg delayed release oral tablet (12 sources) Mood Stabilizer, Anti-epileptic Agent Start: 07-16-2021 take 1000 mg by mouth at bedtime Divalproex Active 1000 MG PO AT BEDTIME July 16, 2021 12:21pm Start: 07-16-2021 End: 09-22-2023 take 500 mg by mouth once daily Divalproex Active 500 MG PO DAILY July 16, 2021 12:21pm Start: 07-16-2021 End: 09-22-2023 take 2 tablets by mouth at bedtime Divalproex 500 mg Tablet,Delayed Release (Dr/Ec) Discontinued 1000 mg PO AT BEDTIME July 16, 2021 12:00am September 22, 2023 9:52pm mood take 1 tablet by maeve th once daily in the morning divalproex DR (DEPAKOTE) 250 mg EC tablet Take 250 mg by mouth once daily. In am Active Completed/Discontinued Medications Medication Drug Class(es) Dates Sig (Normalized) Sig (Original) 24 hr buPROPion hydrochloride 150 mg extended release oral tablet (5 sources) Aminoketone Start: 10-25-2020 End: 09-22-2023 take 1 tablet by mouth once daily Bupropion Hcl 150 mg Tablet Extended Release 24 Hr Discontinued 150 mg PO DAILY July 16, 2021 12:00am September 22, 2023 9:52pm mood On Hold: Hold until sees the psychiatrist busPIRone hydrochloride 10 mg oral tablet (5 sources) Start: 07-16-2021 End: 07-17-2021 take 10 mg by mouth three times daily Buspirone Discontinued 10 MG PO THREE TIMES A DAY July 16, 2021 12:21pm July 17, 2021 11:42am Start: 10-25-2020 take 1 tablet by maeve th twice daily busPIRone (BUSPAR) 10 mg tablet Take 1 tablet by mouth twice daily. 10/25/2020 Active doxycycline hyclate 100 mg oral tablet (1 source) Tetracycline-class Drug Start: 03-02-2019 End: 03-12-2019 take 1 tablet by mouth twice daily doxycycline Dose : 100 mg =, Oral, BID, # 20 tab(s), 0 Refill(s) Start Date: 03/02/19 Stop Date: 03/12/19 Status: Ordered Problems Active Problems Problem Classification Problem Date Documented Da te Episodic/Chronic Alcohol-related disorders (1 source) Alcohol intoxication; Translations: [Alcoholic intoxication without complication (HCC)] Chronic Anxiety disorders (7 sources) Anxiety; Translations: [Anxiety disorder, unspecified] 09-01-2016 Chronic Attention-deficit, conduct, and disruptive behavior disorders (1 source) Attention deficit hyperactivity disorder 06-02-2015 Chronic Cardiac dysrhythmias (20 sources) Palpitations; Translations: [Palpitations] Episodic E Codes: Natural/environment (1 source) Cat bite - wound; Translations: [Bitten by cat, initial encounter] Episodic Epilepsy; convulsions (14 sources) Neurological finding; Translations: [Unspecified convulsions] Episodic Gastrointestinal hemorrhage (8 sources) Hematemesis - cause unknown; Translations: [Hematemesis] 05-11-2019 Episodic Immunizations and screening for infectious disease (8 sources) Contact with or exposure to other viral diseases; Translations: [Exposure to COVID-19 virus] 07-16-2021 Episodic Mood disorders (2 sources) Bipolar disorder; Translations: [Bipolar affective (HCC)] Onset: 11-04-2019 11-04-2019 Chronic Nausea and vomiting (1 source) Diarrhea and vomiting; Translations: [Vomiting, unspecified] 02-17-2024 Episodic Nonspecific chest pain (15 sources) Chest wall pain; Translations: [Other chest pain] Episodic Open wounds of extremities (8 sources) Open wound of finger; Translations: [Unspecified open wound of other finger without damage to nail, initial encounter] 07-16-2021 Episodic Other nervous system disorders (3 sources) Disorder of brain; Translations: [Encephalopathy, unspecified] 07-16-2021 Chronic Other nervous system disorders (2 sources) Encephalopathy, unspecified; Translations: [Encephalopathy, unspecified] Chronic Other non-traumatic joint disorders (1 source) Chronic pain of left upper limb; Translations: [Pain in left shoulder] 07-02-2020 Episodic Other nutritional; endocrine; and metabolic disorders (4 sources) Hyperammonemia; Translations: [Disorder of urea cycle metabolism, unspecified] 07-16-2021 Chronic Other nutritional; endocrine; and metabolic disorders (3 sources) Disorder of urea cycle metabolism, unspecified; Translations: [Disorders of urea cycle metabolism] Chronic Other upper respiratory infections (8 sources) Sinusitis; Translations: [Chronic sinusitis, unspecified] 06-22-2019 Chronic Other upper respiratory infections (1 source) Sore throat symptom; Translations: [Acute pharyngitis, unspecified] 01-25-2024 Episodic Residual codes; unclassified (4 sources) Altered mental status; Translations: [Altered mental status, unspecified] 07-16-2021 Episodic Residual codes; unclassified (3 sources) Altered mental status, unspecified; Translations: [Altered mental status] Episodic Residual codes; unclassified (1 source) Chronic back pain 09-23-2015 Episodic Schizophrenia and other psychotic disorders (1 source) Psychotic disorder; Translations: [Psychosis, unspecified psychosis type (HCC)] Chronic Screening and history of mental health and substance abuse codes (6 sources) H/O: psychological trauma; Translations: [Personal history of other mental and behavioral disorders] 07-07-2021 Episodic Sprains and strains (2 sources) Sprain of carpal joint of right wrist, initial encounter; Translations: [Carpal joint sprain] Onset: 04-03-2024 03-14-2024 Episodic Substance-related disorders (1 source) Drug-related disorder; Translations: [Other psychoactive substance use, unspecified with intoxication, uncomplicated] Episodic Past or Other Problems Problem Classification Problem Date Documented Da te Episodic/Chronic Residual codes; unclassified (1 source) Procedure and treatment not carried out due to patient leaving prior to being seen by health care provider; Translations: [Procedure and treatment not carried out due to patient leaving prior to being seen by health care provider] Onset: 09-28-2023 Episodic Unclassified (8 sources) Ankle sprain and strain 07-16-2021 Results Test Name Value Interpretation Reference Range Facility CBC-Complete Blood Cnt No Kasie ffon 05-23-2024 Erythrocyte distribution width (RBC) [Ratio] 12.4 % Normal 11.6-14.6 [facility] Comment on above: Performed By: #### L [id number], L100.0500, L500.4050, L500.4100 #### [facility] [address] [place], [address] Hematocrit (Bld) [Volume fraction] 45.1 % Normal 40-54 [facility] Comment on above: Performed By: #### L [id number], L100.0500, L500.4050, L500.4100 #### [facility] [address] [place], [address] Hemoglobin (Bld) [Mass/Vol] 15.3 g/dL Normal 13.0-16.5 [facility] Comment on above: Performed By: #### L [id number], L100.0500, L500.4050, L500.4100 #### [facility] [address] [place], [address] MCH (RBC) [Entitic mass] 30.8 pg Normal 27.0-32.0 [facility] Comment on above: Performed By: #### L [id number], L100.0500, L500.4050, L500.4100 #### [facility] [address] [place], [address] MCHC (RBC) [Mass/Vol] 33.9 g/dL Normal 32-36 [facility] Comment on above: Performed By: #### L [id number], L100.0500, L500.4050, L500.4100 #### [facility] [address] [place], [address] MCV (RBC) [Entitic vol] 90.7 fL Normal 80-94 [facility] Comment on above: Performed By: #### L [id number], L100.0500, L500.4050, L500.4100 #### [facility] [address] [place], [address] Platelet mean volume (Bld) [Entitic vol] 11.6 fL Normal 6.2-12.0 [facility] Comment on above: Performed By: #### L 501.9985, L100.0500, L500.4050, L500.4100 #### [facility] [address] [place], [address] Platelets (Bld) [#/Vol] 212 10*3/uL Normal 150-450 [facility] Comment on above: Performed By: #### L [id number], L100.0500, L500.4050, L500.4100 #### [facility] [address] [place], [address] RBC (Bld) [#/Vol] 4.97 10*6/uL Normal 4.6-6.2 [facility] Comment on above: Performed By: #### L 501.9985, L100.0500, L500.4050, L500.4100 #### [facility] [address] [place], [address] RDW SD 41.0 fl Normal 35.1-43.9 [facility] Comment on above: Performed By: #### L [id number], L100.0500, L500.4050, L500.4100 #### [facility] [address] [place], [address] WBC (Bld) [#/Vol] 7.2 10*3/uL Normal 4.4-11.0 [facility] Comment on above: Performed By: #### L 501.9985, L100.0500, L500.4050, L500.4100 #### [facility] [address] [place], [address] Comprehensive Metabolic Prof ilon 05-23-2024 Albumin [Mass/Vol] 4.2 g/dL Normal 3.2-5.0 [facility] Comment on above: Performed By: #### L 501.9985, L100.0500, L500.4050, L500.4100 #### [facility] [address] [place], [address] Albumin/Globulin [Mass ratio] 1.3 {ratio} Normal 0.9-2.4 [facility] Comment on above: Performed By: #### L 501.9985, L100.0500, L500.4050, L500.4100 #### [facility] [address] [place], [address] ALK P 79 U/L Normal 45-117 [facility] Comment on above: Performed By: #### L 501.9985, L100.0500, L500.4050, L500.4100 #### [facility] [address] [place], [address] ALT [Catalytic activity/Vol] 27 U/L Normal 16-61 [facility] Comment on above: Performed By: #### L 501.9985, L100.0500, L500.4050, L500.4100 #### [facility] [address] [place], [address] AST [Catalytic activity/Vol] 20 U/L Normal 15-37 [facility] Comment on above: Performed By: #### L 501.9985, L100.0500, L500.4050, L500.4100 #### [facility] [address] [place], [address] Bilirubin [Mass/Vol] 0.40 mg/dL Normal 0.20-1.00 [facility] Comment on above: Result Comment: For patients on eltrombopag therapy, use of Dimension [place] TBIL is not recommended. Performed By: #### L 501.9985, L100.0500, L500.4050, L500.4100 #### [facility] [address] [place], [address] BUN/CRE 17.1 RATIO Normal 10-20 [facility] Comment on above: Performed By: #### L 501.9985, L100.0500, L500.4050, L500.4100 #### [facility] [address] [place], [address] CA,Total 9.1 mg/dL Normal 8.5-10.1 [facility] Comment on above: Performed By: #### L 501.9985, L100.0500, L500.4050, L500.4100 #### [facility] [address] [place], [address] Chloride [Moles/Vol] 103 mmol/L Normal 98-107 [facility] Comment on above: Performed By: #### L 501.9985, L100.0500, L500.4050, L500.4100 #### [facility] [address] [place], [address] CO2 [Moles/Vol] 27.0 mmol/L Normal 21.0-32.0 [facility] Comment on above: Performed By: #### L 501.9985, L100.0500, L500.4050, L500.4100 #### [facility] [address] [place], [address] Creatinine [Mass/Vol] 0.76 mg/dL Normal 0.70-1.30 [facility] Comment on above: Result Comment: The validity of the calculated GFR GFRAA in patients over 70 years has not been determined. Clinical correlation is essential. Performed By: #### L 501.9985, L100.0500, L500.4050, L500.4100 #### [facility] [address] [place], [address] EST GFR - AA 156 mL/min Normal >60 [facility] Comment on above: Result Comment: Afri can Bulgarian GFR Calc Performed By: #### L 501.9985, L100.0500, L500.4050, L500.4100 #### [facility] [address] [place], [address] GAP 9 Normal 5-15 [facility] Comment on above: Performed By: #### L 501.9985, L100.0500, L500.4050, L500.4100 #### [facility] [address] [place], [address] GFR/1.73 sq M.predicted among non-blacks MDRD (S/P/Bld) [Vol rate/Area] 129 mL/min/{1.73_m2} Normal >60 [facility] Comment on above: Result Comment: Non- GFR Calc Performed By: #### L 501.9985, L100.0500, L500.4050, L500.4100 #### [facility] [address] [place], [address] Globulin (S) [Mass/Vol] 3.3 g/dL Normal 2.2-4.2 [facility] Comment on above: Performed By: #### L 501.9985, L100.0500, L500.4050, L500.4100 #### [facility] [address] [place], [address] Glucose [Mass/Vol] 84 mg/dL Normal 74-106 [facility] Comment on above: Performed By: #### L 501.9985, L100.0500, L500.4050, L500.4100 #### [facility] [address] [place], [address] Potassium [Moles/Vol] 4.0 mmol/L Normal 3.5-5.1 [facility] Comment on above: Performed By: #### L 501.9985, L100.0500, L500.4050, L500.4100 #### [facility] [address] [place], [address] Sodium [Moles/Vol] 138 mmol/L Normal 136-145 [facility] Comment on above: Performed By: #### L 501.9985, L100.0500, L500.4050, L500.4100 #### [facility] [address] [place], [address] T PROT 7.5 g/dL Normal 6.4-8.2 [facility] Comment on above: Performed By: #### L 501.9985, L100.0500, L500.4050, L500.4100 #### [facility] [address] [place], [address] Urea nitrogen [Mass/Vol] 13 mg/dL Normal 7-18 [facility] Comment on above: Performed By: #### L 501.9985, L100.0500, L500.4050, L500.4100 #### [facility] [address] [place], [address] Hemoglobin A1con 05-23-2024 HbA1c (Bld) [Mass fraction] 5.2 % Normal 3.8-5.6 [facility] Comment on above: Result Comment: Norm al < 5.7 % Prediabetic 5.7 - 6.4 % Diabetic >or= 6.5 % Please note range changes. Performed By: #### L 501.9985, L100.0500, L500.4050, L500.4100 #### [facility] [address] [place], [address] Lipid Profileon 02-11-2025 Cholesterol [Mass/Vol] 172 mg/dL Normal 200 [facility] Comment on above: Result Comment: <200 mg/dL Desirable 200-240 mg/dL Borderline >240 mg/dL High Risk Performed By: #### L 501.9985, L100.0500, L500.4050, L500.4100 #### [facility] [address] [place], [address] Cholesterol in HDL [Mass/Vol] 51 mg/dL Normal [facility] Comment on above: Result Comment: The drugs N-Acetylcysteine and Metamizole may falsely depress this assay. Reference Range HDL <40 mg/dL Low HDL Cholesterol HDL >or= 60 mg/dL High HDL Cholesterol Performed By: #### L 501.9985, L100.0500, L500.4050, L500.4100 #### [facility] [address] [place], [address] Cholesterol in LDL [Mass/Vol] 104 mg/dL Normal 0-130 [facility] Comment on above: Performed By: #### L 501.9985, L100.0500, L500.4050, L500.4100 #### [facility] [address] [place], [address] Cholesterol in VLDL [Mass/Vol] 17 mg/dL Normal 5-40 [facility] Comment on above: Performed By: #### L 501.9985, L100.0500, L500.4050, L500.4100 #### [facility] [address] [place], [address] Triglyceride [Mass/Vol] 85 mg/dL Normal [facility] Comment on above: Result Comment: The drugs N-Acetylcysteine and Metamizole may falsely depress this assay. Serum Triglycerides Reference Interval Normal <150 mg/dL Borderline high 150 - 199 mg/dL High 200 - 499 mg/dL Very High > or = 500 mg/dL Performed By: #### L 501.9985, L100.0500, L500.4050, L500.4100 #### [facility] [address] [place], [address] Emergency Department Summary on 03-06-2024 Emergency Department Summary [facility] Medical Records Department [address] [place] [address] Emergency Department Summary 03/06/24 MR#: [id number] Acct: [id number] Name: STEVE QUACH III Rep #: [id number] : 1995 28 From: Carlos Eduardo Hernandez MD PCP: Dr. Kelli Hurtado MD Status:REG ER Location: ED HPI History of Present Illness Chief Complaint: Upper Extremity Injury Informant: patient Narrative Narrative: Healthy 20-year-old [id number]-ekctsiye male injured his right wrist 1.5 weeks ago and is still having persistent significant pain. He states he was grasping something at work really hard, to the point where he felt a sudden pain in the dorsum of his wrist that radiated distally and proximally but the pain has been there ever since. Hurts a lot to move his wrist. He denies any neurologic symptoms right now. No other injuries. [facility] Medical History Anxiety and depression TBI (traumatic brain injury) Cannabis use disorder, mild, abuse Schizophrenia PTSD (post-traumatic stress disorder) Manic bipolar I disorder Bipolar 1 disorder Home Medications ???Medication ???Instructions ???Recorded ???Last Taken ???Type NK 09/22/23 Unknown History naproxen 500 mg tablet (Naprosyn) 500 mg PO BID PRN pain #14 tabs 03/06/24 Unknown Rx Allergy/AdvReac Type Severity Reaction Status Date / Time Penicillins Allergy Hives Verified 03/06/24 18:10 Family History (Updated 07/16/21 @ 06:[address] Hollie Carvalho MD) Father Heart disease Hypertension Diabetes Surgical History (Updated 07/16/21 @ 06:[address] Hollie Carvalho MD) History of surgery on arm Social History (Updated 07/16/21 @ 06:[address] Hollie Carvalho MD) household members: significant other Smoking Status: Current every day smoker tobacco type: cigarettes Smokeless tobacco user: other alcohol intake: never substance use type: marijuana ROS ROS ED Constitutional Constitutional ED: Denies chills or fever(s) Musculoskeletal Musculoskeletal: Reports extremity pain; Denies neck pain Integumentary Denies Abrasions, rash or wounds Neurologic Neurologic: Denies paresthesias or weakness EXAM Physical Exam Const Vital Signs: 03/06/24 18:11 03/06/24 20:28 Temperature 96.8 F L 96.8 F L Temperature Source Temporal Pulse Rate 72 72 Respiratory Rate 18 18 Blood Pressure 120/73 120/73 Blood Pressure Mean 88 88 Pulse Ox 100 100 Oxygen Delivery Method Room Air Positive well nourished and well developed General Appearance ED: well developed and NAD Neck full ROM and supple Back/Spine normal ROM and normal to inspection Extremity Extremity Narrative: No deformities of the right wrist or hand. All tendon function intact. Limited range of motion of the wrist due to pain. He has pain and tenderness mostly dorsally at the radial aspect of the carpus, not at the snuffbox just a little ulnar to that, in the area where the capitate is.. Neuro oriented x3, no focal motor deficits and no sensory deficits noted Sensorium / Orientation: alert Psych mental status grossly normal and thought process normal Skin no wounds Rashes: no rashes MDM MDM MDM Narrative Medical decision making narrative: Three-view x-ray series of the right wrist on my interpretation negative for acute fracture or dislocation. There is no scapholunate dissociation, but there is some prominence of the space between the lunate and the triquetrum. I discussed with Dr. Humphrey, he agrees but states this may be based on the view, and agrees with having the patient splinted and following up in the office for evaluation possible MRI. Patient given a prescription for NSAID as well. Radiography Diagnostic Testing: Clinical Impression(s) from Imaging Studies Wrist X-Ray 03/06/24 18:10 IMPRESSION: Normal x-ray examination of the wrist. Electronically Signed: Carlos Eduardo Feldman MD at 19:18 EST , Management Discussion w/another healthcare provider: Grated Cheese Maker (Nawaf Humphrey) Discharge Plan Triage Chief Complaint: Upper Extremity Injury ED Provider: Carlos Eduardo Hernandez Dx/Rx/DC Orders Clinical Impression: Sprain of carpal joint of right wrist Instructions: ED Wrist Sprain Prescriptions: New naproxen [Naprosyn] 500 mg tablet 500 mg PO BID PRN (Reason: pain) Qty: 14 0RF No Action NK Primary Care Provider: Kelli Hurtado Referrals: Kelli Hurtado MD [Primary Care Provider] - Gabriel Humphrey DO [Med Staff - Active Staff] - As soon as possible Print Language: Austrian Disposition Disposition: Home, Self Care What to do if you have Problems F (more content not included)... Normal [facility] Wrist min 3 Viewson 03-06-20 Wrist min 3 Views [facility] Imaging Services [address], [place] [address] Wrist min 3 Views MR#: [id number] Acct: [id number] Name: STEVE QUACH III Rep #: [id number] : 1995 M 28 From: Carlos Eduardo Feldman MD PCP: Dr. Kelli Hurtado MD Status: PRE ER Study: Wrist min 3 Views Date of Exam: 03/06/24 Exam# [id number] Ordering Dr: Ranjit Encarnacion [id number] STUDY: X-RAY - RIGHT WRIST REASON FOR EXAM: Male, 28 years old. Patient felt pop, injury TECHNIQUE: 3 view(s) of the wrist were obtained. COMPARISON: None. FINDINGS: Normal visualized distal radius and ulna. Normal radiocarpal articulation. Normal distal radioulnar articulation. Normal carpal bones. Normal carpal articulations. Normal carpometacarpal articulation of the thumb. Normal second through fifth carpometacarpal articulations. Normal visualized metacarpal bones. The soft tissue structures are unremarkable. There is no demonstrated acute fracture. RAD/Wrist min 3 Views IMPRESSION: Normal x-ray examination of the wrist. Electronically Signed: Carlos Eduardo Feldman MD at 19:18 EST , CC: Dr. Kelli Hurtado MD; ED PHYSICIAN PROVIDER Bingo Usher: Signed Normal [facility] CNOVon 02-17-2024 CNOV Office Visit ([facility] ) -------- STEVE QUACH ([id number]) 1995 M Date Time Provider Department 02/17/24 12:00 PM GURWINDER JOSIAH WS During your visit today, we recorded the following information about you: Temperature Pulse Respiration Blood pressure 97.9 degrees 75/minute 21/minute 100/68 Weight 69.1 kg Josiah Purdy APRN.VENTILATION WORKER 02/17/2024 1:33 PM Signed Subjective HPI HPI Steve Quach is a 28 year old male who presents today for CC of nausea, vomiting, diarrhea. This started 1 day ago. Has tried nothing for relief. Symptoms are worsened by nothing. Denies fever and blood in stool/emesis, abd pain. .Patient presents with: Nausea AND Vomiting: Diarrhea x 1 day PAST MEDICAL HISTORY Diagnosis Date Bipolar 1 disorder (HCC) Psychiatric disorder Schizoaffective disorder (HCC) PAST SURGICAL HISTORY Procedure Laterality Date ORTHOPEDICS SURGERY HX ALLERGIES Penicillins MEDICATIONS buPROPion XL (WELLBUTRIN XL) 150 mg 24 hr tablet Take 1 tablet by mouth once daily. (Patient not taking: Reported on 06/30/2021 ) busPIRone (BUSPAR) 10 mg tablet Take 1 tablet by mouth twice daily. (Patient not taking: Reported on 06/30/2021 ) Promethazine-DM (PHENERGAN-DM) 6.25-15 mg/5 mL syrup Take 5 mL by mouth four times daily as needed. (Patient not taking: Reported on 01/25/2024) albuterol HFA (PROAIR HFA) 90 mcg/actuation inhaler Inhale 2 Puffs as instructed every 4 hours as needed. (Patient not taking: Reported on 01/25/2024) divalproex DR (DEPAKOTE) 250 mg EC tablet Take 250 mg by mouth once daily. In am (Patient not taking: Reported on 01/25/2024) QUEtiapine (SEROQUEL) 50 mg tablet Take 50 mg by mouth once daily. (Patient not taking: Reported on 01/25/2024) QUEtiapine (SEROQUEL) 200 mg tablet Take 200 mg by mouth daily at bedtime. (Patient not taking: Reported on 01/25/2024) divalproex DR (DEPAKOTE) 500 mg EC tablet Take 1,000 mg by mouth daily at bedtime. (Patient not taking: Reported on 01/25/2024) No family history on file. Social History Tobacco Use Smoking status: Every Day Current packs/day: 1.00 Types: Cigarettes Smokeless tobacco: Never Tobacco comments: vape Vaping Use Vaping status: current everyday user Substances: Nicotine, No THC (stopped d/t anxiety), Flavoring Devices: Pre-filled or refillable cartridge Substance Use Topics Alcohol use: No Drug use: No ROS Objective Blood pressure 100/68, pulse 75, temperature 36.6 ?C (97.9 ?F), resp. rate 21, weight 69.1 kg (152 lb 5.4 oz), SpO2 99%. Physical Exam Constitutional: General: He is not in acute distress. Appearance: Normal appearance. He is not toxic-appearing. Cardiovascular: Rate and Rhythm: Normal rate and regular rhythm. Heart sounds: Normal heart sounds. Pulmonary: Effort: Pulmonary effort is normal. Breath sounds: Normal breath sounds. Abdominal: General: Bowel sounds are normal. Palpations: Abdomen is soft. Tenderness: There is no abdominal tenderness. Skin: General: Skin is warm and dry. ASSESSMENT/PLAN: 1. Vomiting and diarrhea - ICD9: 787.03, 787.91, ICD10: R11.10, R19.7 -Discussed gentle rehydration -BRAT Diet (Bananas, Rice, Apple Sauce, [place]) -If no better in 7-10 days follow up back in clinic or with primary care provider -Follow up in the ER with signs of dehydration, increasing abdominal pain, high fever, or blood in vomit or stool. Josiah Purdy APRN.VENTILATION WORKER Allergies As of Date: 02/17/2024 Noted Allergy Reaction PENICILLINS 2014 2 - Rash Date Reviewed: 02/17/2024 Reviewed by: Astrid Reddy MA - Fully Assessed Reason for Visit: Nausea AND Vomiting [237] Cmt: Diarrhea x 1 day Primary Visit Diagnosis:Vomiting and diarrhea [R11.10, R19.7] Prescriptions as of 02/17/2024 - buPROPion XL (WELLBUTRIN XL) 150 mg 24 hr tablet Take 1 tablet by mouth once daily. - busPIRone (BUSPAR) 10 mg tablet Take 1 tablet by mouth twice daily. - Promethazine-DM (PHENERGAN-DM) 6.25-15 mg/5 mL syrup Take 5 mL by mouth four times daily as needed. - albuterol HFA (PROAIR HFA) 90 mcg/actuation inhaler Inhale 2 Puffs as instructed every 4 hours as needed. - divalproex DR (DEPAKOTE) 250 mg EC tablet Take 250 mg by mouth once daily. In am - QUEtiapine (SEROQUEL) 50 mg tablet Take 50 mg by mouth once daily. - QUEtiapine (SEROQUEL) 200 mg tablet Take 200 mg by mouth daily at bedtime. - divalproex DR (DEPAKOTE) 500 mg EC tablet Take 1,000 mg by mouth daily at bedtime. Problem List As Of Date: 02/17/2024 (None) Letter Text Encounter Status:Closed by JOSIAH PURDY on 02/17/24 [facility] CNOVamos 01-25-2024 CNOV Office Visit ([facility] ) -------- STEVE QUACH ([id number]) 1995 M Date Time Provider Department 01/25/24 10:15 AM ALBERTO CASTELLANO [facility] During your visit today, we recorded the following information about you: Temperature Pulse Respiration Blood pressure 97.7 degrees 86/minute 16/minute 110/78 Weight 67.7 kg Alberto Castellano PA 01/25/2024 10:22 AM Signed This note was created using [employer]. Subjective Steve Quach is a 28 year old male. HPI 28-year-old male presents for sore throat, vomiting starting this morning. Patient states he woke up today and had scratchy throat. He has had a little bit of a cough. He had 1 episode of vomiting this morning. He states he did eat brisket after work last night, unsure if this caused the vomiting. He has no abdominal pain or diarrhea. Was able to eat and drink after the vomiting. He denies any fevers. No sick contacts he is aware of. No other complaint. PAST MEDICAL HISTORY Diagnosis Date Bipolar 1 disorder (HCC) Psychiatric disorder Schizoaffective disorder (HCC) PAST SURGICAL HISTORY Procedure Laterality Date ORTHOPEDICS SURGERY HX ALLERGIES Penicillins MEDICATIONS buPROPion XL (WELLBUTRIN XL) 150 mg 24 hr tablet Take 1 tablet by mouth once daily. (Patient not taking: Reported on 06/30/2021 ) busPIRone (BUSPAR) 10 mg tablet Take 1 tablet by mouth twice daily. (Patient not taking: Reported on 06/30/2021 ) Promethazine-DM (PHENERGAN-DM) 6.25-15 mg/5 mL syrup Take 5 mL by mouth four times daily as needed. (Patient not taking: Reported on 01/25/2024) albuterol HFA (PROAIR HFA) 90 mcg/actuation inhaler Inhale 2 Puffs as instructed every 4 hours as needed. (Patient not taking: Reported on 01/25/2024) divalproex DR (DEPAKOTE) 250 mg EC tablet Take 250 mg by mouth once daily. In am (Patient not taking: Reported on 01/25/2024) QUEtiapine (SEROQUEL) 50 mg tablet Take 50 mg by mouth once daily. (Patient not taking: Reported on 01/25/2024) QUEtiapine (SEROQUEL) 200 mg tablet Take 200 mg by mouth daily at bedtime. (Patient not taking: Reported on 01/25/2024) divalproex DR (DEPAKOTE) 500 mg EC tablet Take 1,000 mg by mouth daily at bedtime. (Patient not taking: Reported on 01/25/2024) No family history on file. Social History Tobacco Use Smoking status: Every Day Current packs/day: 1.00 Types: Cigarettes Smokeless tobacco: Never Tobacco comments: vape Vaping Use Vaping status: current everyday user Substances: Nicotine, No THC (stopped d/t anxiety), Flavoring Devices: Pre-filled or refillable cartridge Substance Use Topics Alcohol use: No Drug use: No Review of Systems Constitutional: Negative for chills and fever. HENT: Positive for sore throat. Negative for congestion. Respiratory: Negative for cough and shortness of breath. Gastrointestinal: Positive for nausea and vomiting. Negative for diarrhea. Objective BP 110/78 Pulse 86 Temp 36.5 ?C (97.7 ?F) (Tympanic) Resp 16 Wt 67.7 kg (149 lb 4 oz) SpO2 96% BMI 21.42 kg/m? Physical Exam Vitals and nursing note reviewed. Constitutional: General: He is not in acute distress. Appearance: Normal appearance. He is not toxic-appearing. HENT: Right Ear: Tympanic membrane and ear canal normal. Left Ear: Tympanic membrane and ear canal normal. Nose: Nose normal. Mouth/Throat: Mouth: Mucous membranes are moist. Pharynx: Uvula midline. Posterior oropharyngeal erythema present. Tonsils: No tonsillar exudate or tonsillar abscesses. 2+ on the right. 2+ on the left. Eyes: Conjunctiva/sclera: Conjunctivae normal. Cardiovascular: Rate and Rhythm: Normal rate and regular rhythm. Pulmonary: Effort: Pulmonary effort is normal. Breath sounds: Normal breath sounds. Abdominal: General: Abdomen is flat. Palpations: Abdomen is soft. Tenderness: There is no abdominal tenderness. There is no guarding or rebound. Skin: General: Skin is warm and dry. Neurological: Mental Status: He is alert. Assessment and Plan ASSESSMENT/PLAN: 1. Sore throat - ICD9: 462, ICD10: J02.9 - suspect viral - Group A strep molecular testing negative - Discussed supportive care treatment with fluids, rest and analgesia. - The patient may also use warm salt water gargles, throat lozenges and/or OTC throat spray as needed. - STREP A MOLECULAR (POC) - declines covid swab Diagnosis and treatment plan were discussed and questions were answered to the patient's satisfaction. Pt acknowledged understanding of concepts and follow up plan. Specific signs and symptoms that would indicate the need for higher level of care were discussed in detail warranting prompt ER evaluation. NICKIE Navas Allergies As of Date: 01/25/2024 Noted Allergy Reaction PENICILLINS 2014 2 - Rash Date Reviewed: 01/25/2024 Reviewed by: Vickie Teixeira LPN - Fully Ass (more content not included)... Normal [facility] STREP A MOLECULAR (POC)on Procedural Control Valid [facility] Strep A (POCT) Negative Negative [facility] 12 Lead EKGon 09-22-2023 12 Lead EKG [facility] Cardiovascular Services [address] [place] [address] 12 Lead EKG 09/22/23 2201 MR#: [id number] Acct: [id number] Name: STEVE QUACH III Rep #: [id number] : 1995 27 From: Huseyin Mcmahon MD Attending Dr: Status: DEP ER Ordering Dr: Provider,Ranjit P. Date: 09/22/23 Location: ED Sex: M C Admitted: Test Reason : CP Blood Pressure : / mmHG Vent. Rate : 073 BPM Atrial Rate : 073 BPM P-R Int : 150 ms QRS Dur : 084 ms QT Int : 358 ms P-R-T Axes : 069 070 058 degrees QTc Int : 394 ms Normal sinus rhythm Normal ECG Confirmed by HUSEYIN MCMAHON MD ([id number]), editorial assistant GISSEL AGUIRRE ([id number]) on 09/27/2023 11:40:00 AM Referred By: DAYRON Confirmed By:HUSEYIN MCMAHON MD 09/27/23 1140 Date Huseyin Mcmahon MD CC: Dr. Kelli Hurtado MD; ED PHYSICIAN PROVIDER Signed Normal [facility] Basic Metabolic Profile (BMP )on 09-22-2023 BUN Normal 7-18 [facility] Comment on above: Order Comment: 1 Y Result Comment: NO S PECIMEN COLLECTED. PATIENT DEPARTED ED. Performed By: #### L 500.2500, L100.0100 #### [facility] Laboratory [address] [place], [address] BUN/CRE Normal 10-20 [facility] Comment on above: Order Comment: 1 Y Result Comment: NO S PECIMEN COLLECTED. PATIENT DEPARTED ED. Performed By: #### L 500.2500, L100.0100 #### [facility] [address] [place], [address] CA,Total Normal 8.5-10.1 [facility] Comment on above: Order Comment: 1 Y Result Comment: NO S PECIMEN COLLECTED. PATIENT DEPARTED ED. Performed By: #### L 500.2500, L100.0100 #### [facility] [address] [place], [address] CL Normal 98-107 [facility] Comment on above: Order Comment: 1 Y Result Comment: NO S PECIMEN COLLECTED. PATIENT DEPARTED ED. Performed By: #### L 500.2500, L100.0100 #### [facility] [address] [place], [address] CO2 Normal 21.0-32.0 [facility] Comment on above: Order Comment: 1 Y Result Comment: NO S PECIMEN COLLECTED. PATIENT DEPARTED ED. Performed By: #### L 500.2500, L100.0100 #### [facility] [address] [place], [address] CREAT,SERUM Normal 0.70-1.30 [facility] Comment on above: Order Comment: 1 Y Result Comment: NO S PECIMEN COLLECTED. PATIENT DEPARTED ED. Performed By: #### L 500.2500, L100.0100 #### [facility] [address] [place], [address] EST GFR Normal >60 [facility] Comment on above: Order Comment: 1 Y Result Comment: NO S PECIMEN COLLECTED. PATIENT DEPARTED ED. Performed By: #### L 500.2500, L100.0100 #### [facility] [address] [place], [address] EST GFR - AA Normal >60 [facility] Comment on above: Order Comment: 1 Y Result Comment: NO S PECIMEN COLLECTED. PATIENT DEPARTED ED. Performed By: #### L 500.2500, L100.0100 #### [facility] [address] [place], [address] GAP Normal 5-15 [facility] Comment on above: Order Comment: 1 Y Result Comment: NO S PECIMEN COLLECTED. PATIENT DEPARTED ED. Performed By: #### L 500.2500, L100.0100 #### [facility] [address] [place], [address] GLU Normal 74-106 [facility] Comment on above: Order Comment: 1 Y Result Comment: NO S PECIMEN COLLECTED. PATIENT DEPARTED ED. Performed By: #### L 500.2500, L100.0100 #### [facility] [address] [place], [address] Potassium Normal 3.5-5.1 [facility] Comment on above: Order Comment: 1 Y Result Comment: NO S PECIMEN COLLECTED. PATIENT DEPARTED ED. Performed By: #### L 500.2500, L100.0100 #### [facility] [address] [place], [address] Basic Metabolic Profile (BMP) Normal 136-145 [facility] Comment on above: Order Comment: 1 Y Result Comment: NO S PECIMEN COLLECTED. PATIENT DEPARTED ED. Performed By: #### L 500.2500, L100.0100 #### [facility] [address] [place], [address] CBC W/Diff, Automatedon 06- Absolute Neut Normal 2.0-7.7 [facility] Comment on above: Result Comment: NO S PECIMEN COLLECTED. PATIENT DEPARTED ED. Performed By: #### L 500.2500, L100.0100 #### [facility] [address] [place], [address] HCT Normal 40-54 [facility] Comment on above: Result Comment: NO S PECIMEN COLLECTED. PATIENT DEPARTED ED. Performed By: #### L 500.2500, L100.0100 #### [facility] [address] [place], [address] HGB Normal 13.0-16.5 [facility] Comment on above: Result Comment: NO S PECIMEN COLLECTED. PATIENT DEPARTED ED. Performed By: #### L 500.2500, L100.0100 #### [facility] [address] [place], [address] MCH Normal 27.0-32.0 [facility] Comment on above: Result Comment: NO S PECIMEN COLLECTED. PATIENT DEPARTED ED. Performed By: #### L 500.2500, L100.0100 #### [facility] [address] [place], [address] MCHC Normal 32-36 [facility] Comment on above: Result Comment: NO S PECIMEN COLLECTED. PATIENT DEPARTED ED. Performed By: #### L 500.2500, L100.0100 #### [facility] [address] [place], [address] MCV Normal 80-94 [facility] Comment on above: Result Comment: NO S PECIMEN COLLECTED. PATIENT DEPARTED ED. Performed By: #### L 500.2500, L100.0100 #### [facility] [address] [place], [address] NEUT% Normal 47-70 [facility] Comment on above: Result Comment: NO S PECIMEN COLLECTED. PATIENT DEPARTED ED. Performed By: #### L 500.2500, L100.0100 #### [facility] [address] [place], [address] PLT Normal 150-450 [facility] Comment on above: Result Comment: NO S PECIMEN COLLECTED. PATIENT DEPARTED ED. Performed By: #### L 500.2500, L100.0100 #### [facility] [address] [place], [address] RBC Normal 4.6-6.2 [facility] Comment on above: Result Comment: NO S PECIMEN COLLECTED. PATIENT DEPARTED ED. Performed By: #### L 500.2500, L100.0100 #### [facility] [address] [place], [address] RDW CV Normal 11.6-14.6 [facility] Comment on above: Result Comment: NO S PECIMEN COLLECTED. PATIENT DEPARTED ED. Performed By: #### L 500.2500, L100.0100 #### [facility] [address] [place], [address] RDW SD Normal 35.1-43.9 [facility] Comment on above: Result Comment: NO S PECIMEN COLLECTED. PATIENT DEPARTED ED. Performed By: #### L 500.2500, L100.0100 #### [facility] [address] [place], [address] WBC Normal 4.4-11.0 [facility] Comment on above: Result Comment: NO S PECIMEN COLLECTED. PATIENT DEPARTED ED. Performed By: #### L 500.2500, L100.0100 #### [facility] [address] [place], [address] LABORATORYOrdered By: Vickie De Luna on 04-19-2022 Basophil, Absolute 0.0 103/mcL Invalid Interpretation Code 0.0 - 0.2 10^3/mcL AO Workflow SS Basophils/100 WBC (Bld) 0.3 % Invalid Interpretation Code 0.0 - 2.5 % AO Workflow SS Eosinophil, Absolute 0.0 103/mcL Invalid Interpretation Code 0.0 - 0.4 10^3/mcL AO Workflow SS Eosinophils/100 WBC (Bld) 0.4 % Invalid Interpretation Code 0.0 - 7.0 % AO Workflow SS Erythrocyte distribution width (RBC) [Ratio] 12.9 % Invalid Interpretation Code 11.5 - 14.5 % AO Workflow SS Fibrin D-dimer DDU (PPP) [Mass/Vol] ng/mL D-DU Invalid Interpretation Code 0 - 230 ng/mL D-DU AO Coag SS Hematocrit (Bld) [Volume fraction] 43.9 % Invalid Interpretation Code 42.0 - 52.0 % AO Workflow SS Hemoglobin (Bld) [Mass/Vol] 15.4 G/dL Invalid Interpretation Code 14.0 - 18.0 G/dL AO Workflow SS Lymphocyte, Absolute 2.2 103/mcL Invalid Interpretation Code 0.8 - 3.9 10^3/mcL AO Workflow SS Lymphocytes/100 WBC (Bld) 23.0 % Invalid Interpretation Code 10.0 - 50.0 % AO Workflow SS MCH (RBC) [Entitic mass] 30.9 pg Invalid Interpretation Code 27.0 - 31.2 pg AO Workflow SS MCHC 35.2 G/dL Invalid Interpretation Code 31.8 - 35.4 G/dL AO Workflow SS MCV (RBC) [Entitic vol] 87.7 fL Invalid Interpretation Code 80.0 - 94.0 fL AO Workflow SS Monocyte distribution width Auto (Bld) [Entitic vol] 17.38 Invalid Interpretation Code 0.00 - 20.00 AO Workflow SS Comment on above: Result Comment: For ED adult patients suspected of sepsis, MDW<=20.0 does not rule out sepsis or risk of sepsis Monocyte, Absolute 0.8 103/mcL Invalid Interpretation Code 0.2 - 1.0 10^3/mcL AO Workflow SS Monocytes/100 WBC (Bld) 8.4 % Invalid Interpretation Code 1.7 - 13.0 % AO Workflow SS Neutrophil, Absolute 6.6 103/mcL Invalid Interpretation Code 2.9 - 6.2 10^3/mcL AO Workflow SS Neutrophils/100 WBC (Bld) 67.9 % Invalid Interpretation Code 37.0 - 80.0 % AO Workflow SS Platelet mean volume (Bld) [Entitic vol] 8.5 fL Invalid Interpretation Code 7.4 - 10.4 fL AO Workflow SS Platelets (Bld) [#/Vol] 222 103/mcL Invalid Interpretation Code 130 - 400 10^3/mcL AO Workflow SS RBC (Bld) [#/Vol] 5.00 106/mcL Invalid Interpretation Code 4.04 - 6.13 10^6/mcL AO Workflow SS WBC (Bld) [#/Vol] 9.7 103/mcL Invalid Interpretation Code 4.6 - 10.8 10^3/mcL AO Workflow SS LABORATORYOrdered By: SYSTEM SYSTEM on 04-19-2022 Calcium [Mass/Vol] 9.0 mg/dL Invalid Interpretation Code 8.4 - 10.2 mg/dL AO ADM SS Chloride [Moles/Vol] 100 mmol/L Invalid Interpretation Code 98 - 107 mmol/L AO ADM SS CO2 [Moles/Vol] 30 mmol/L Invalid Interpretation Code 22 - 29 mmol/L AO ADM SS Creatinine [Mass/Vol] 1.07 mg/dL Invalid Interpretation Code 0.70 - 1.30 mg/dL AO ADM SS Electrolyte Balance 9.0 mEq/L Invalid Interpretation Code 4.0 - 15.0 mEq/L AO ADM SS GFR 101 ml/min/1.73sqm Invalid Interpretation Code AO Chemistry S GFR Non- 84 ml/min/1.73sqm Invalid Interpretation Code AO Chemistry S Glucose [Mass/Vol] 99 mg/dL Invalid Interpretation Code 70 - 105 mg/dL AO ADM SS Potassium [Moles/Vol] 3.5 mmol/L Invalid Interpretation Code 3.5 - 5.1 mmol/L AO ADM SS Sodium [Moles/Vol] 139 mmol/L Invalid Interpretation Code 136 - 145 mmol/L AO ADM SS Troponin I.cardiac DL <= 0.01 ng/mL [Mass/Vol] 4.4 ng/L Invalid Interpretation Code 0.0 - 76.2 ng/L AO ADM SS Urea nitrogen [Mass/Vol] 14 mg/dL Invalid Interpretation Code 7 - 18 mg/dL AO ADM SS Urea nitrogen/Creatinine [Mass ratio] 13 ratio Invalid Interpretation Code 7 - 27 ratio AO ADM SS XR CHEST 2 VIEWSon 3 XR CHEST 2 VIEWS ORIGINAL EXAMINATION: TWO XRAY VIEWS OF THE CHEST12/ 5:35 pm XR Chest two views COMPARISON: 03/02/2019 HISTORY: ORDERING SYSTEM PROVIDED HISTORY: Reason for Exam: chest pain, FINDINGS: No acute infiltrate, consolidation,mass, pneumothorax, pleural fluid, or vascular congestion is seen. Heart size and mediastinal contours are within normal limits for age and projection. No acute skeletal abnormality. There is increased retrosternal clear space which can be a sign of hyperexpansion. IMPRESSION: No acute cardiopulmonary process. Question lung hyperexpansion/COPD. Interpreted by: Francois Jamison MD Preliminary Report By: Francois Jamison MD Electronically signed By Francois Jamison MD Dictated Date: 04/12/2022 12:36:02 AM Prelim Date: 04/12/2022 12:36:52 AM Sign Date: 04/12/2022 12:36:52 AM Ordering Provider: [facility] ([place]) Basophil percentageon 2021 Ammonia (P) [Moles/Vol] 121.0 umol/L 11-32 [facility] Work Phone: [phone] Bilirubin [Mass/Vol] 0.30 mg/dL 0.20-1.00 [facility] Work Phone: [phone] Comment on above: For patients on eltr ombopag therapy, use of Dimension [place] TBIL is not recommended. Chloride [Moles/Vol] 106 mmol/L 98-107 [facility] Work Phone: [phone] Glucose [Mass/Vol] 92 mg/dL 74-106 [facility] Work Phone: [phone] Potassium [Moles/Vol] 4.1 mmol/L 3.5-5.1 [facility] Work Phone: [phone] Protein [Mass/Vol] 7.4 g/dL 6.4-8.2 [facility] Work Phone: [phone] Sodium [Moles/Vol] 138 mmol/L 136-145 [facility] Work Phone: Laboratory - Chemistry and C hemistry - challengeon 07-21-2021 ALP [Catalytic activity/Vol] 74 U/L 45-117 [facility] Work Phone: ALT [Catalytic activity/Vol] 20 U/L 16-61 [facility] Work Phone: CO2 [Moles/Vol] 24.0 mmol/L 21.0-32.0 [facility] Work Phone: Globulin (S) [Mass/Vol] 3.2 g/dL 2.2-4.2 [facility] Work Phone: Urea nitrogen/Creatinine [Mass ratio] 9.9 mg/mg 10-20 [facility] Work Phone: No Panel Informationon 07-21 Estimated GFR (MDRD) Amer 129 mL/min >60 [facility] Work Phone: Comment on above: GFR Calc Estimated GFR (MDRD) Non-Af Amer 107 mL/min >60 [facility] Work Phone: Comment on above: Non- GFR Calc Valproic Acid (Depakene) Level 139 ug/mL 50-100 [facility] Work Phone: Vitamin D 25-Hydroxy 35.4 ng/mL [facility] Work Phone: Comment on above: Vitamin D 25(OH) Sta tus Range Deficiency <20 ng/mL (50nmol/L) Insufficiency 20 - 30 ng/mL (50 - 75 nmol/L) Sufficiency 30 - 100 ng/mL (75 - 250 nmol/L) Toxicity >100 ng/mL (>250 nmol/L) Serum or plasma albumin tata urement (mass/volume)on 07-21-2021 Albumin [Mass/Vol] 4.2 g/dL 3.2-5.0 [facility] Work Phone: Serum or plasma albumin/glob ulin mass ratioon 07-21-2021 Albumin/Globulin [Mass ratio] 1.3 {ratio} 0.9-2.4 [facility] Work Phone: Serum or plasma calcium tata urement (mass/volume)on 07-21-2021 Calcium [Mass/Vol] 9.2 mg/dL 8.5-10.1 [facility] Work Phone: Serum or plasma creatinine m easurement (mass/volume)on 07-21-2021 Creatinine [Mass/Vol] 0.91 mg/dL 0.70-1.30 [facility] Work Phone: Comment on above: The validity of the calculated GFR & GFRAA in patients over 70 years has not been determined. Clinical correlation is essential. Serum or plasma urea nitroge n measurement (mass/volume)on 07-21-2021 Urea nitrogen [Mass/Vol] 9 mg/dL 7-18 [facility] Work Phone: Thin prep Papanicolaou smear with manual screeningon 07-21-2021 Thin prep Papanicolaou smear with manual screening 8 U/L 15-37 [facility] Work Phone: Thin prep Papanicolaou smear with manual screening 8 5-15 [facility] Work Phone: Absolute lymphocyte counton 07-17-2021 Lymphocytes Auto (Unsp spec) [#/Vol] 3.38 10*3/uL 0.83-4.51 [facility] Work Phone: Basophil percentageon 2021 Ammonia (P) [Moles/Vol] 100.0 umol/L 11-32 [facility] Work Phone: Basophils/100 WBC (Bld) 0.1 % 0-1 [facility] Work Phone: Bilirubin [Mass/Vol] 0.40 mg/dL 0.20-1.00 [facility] Work Phone: Comment on above: For patients on eltr ombopag therapy, use of Dimension [place] TBIL is not recommended. Chloride [Moles/Vol] 115 mmol/L 98-107 [facility] Work Phone: Eosinophils/100 WBC (Bld) 0.4 % 0-5 [facility] Work Phone: Glucose [Mass/Vol] 96 mg/dL 74-106 [facility] Work Phone: Neutrophils (Bld) [#/Vol] 3.2 10*3/uL 2.0-7.7 [facility] Work Phone: Neutrophils/100 WBC (Bld) 41.7 % 47-70 [facility] Work Phone: [phone] Potassium [Moles/Vol] 3.5 mmol/L 3.5-5.1 [facility] Work Phone: Protein [Mass/Vol] 5.5 g/dL 6.4-8.2 [facility] Work Phone: Sodium [Moles/Vol] 142 mmol/L 136-145 [facility] Work Phone: [phone] WBC (Bld) [#/Vol] 7.6 10*3/uL 4.4-11.0 [facility] Work Phone: [phone] Blood erythrocytes count (nu mber/volume)on 07-17-2021 RBC (Bld) [#/Vol] 3.95 10*6/uL 4.6-6.2 [facility] Work Phone: [phone] Blood hemoglobin measurement (mass/volume)on 07-17-2021 Hemoglobin (Bld) [Mass/Vol] 12.3 g/dL 13.0-16.5 [facility] Work Phone: Blood lymphocytes/100 leukoc yteson 07-17-2021 Lymphocytes/100 WBC (Bld) 44.7 % 19-41 [facility] Work Phone: Blood monocytes/100 leukocyt eson 07-17-2021 Monocytes/100 WBC (Bld) 12.8 % 0-10 [facility] Work Phone: Blood platelet mean volumeon 07-17-2021 Platelet mean volume (Bld) [Entitic vol] 11.0 fL 6.2-12.0 [facility] Work Phone: Culture, urineon 07-17-2021 Bacteria identified Cx Nom (U) Negative [facility] Work Phone: Determination of erythrocyte mean corpuscular volume (MCV)on 07-17-2021 MCV (RBC) [Entitic vol] 89.1 fL 80-94 [facility] Work Phone: Hematocrit Auto (Bld) [Volum e fraction]on 07-17-2021 Hematocrit (Bld) [Volume fraction] 35.2 % 40-54 [facility] Work Phone: Laboratory - Chemistry and C hemistry - challengeon 07-17-2021 ALP [Catalytic activity/Vol] 57 U/L 45-117 [facility] Work Phone: ALT [Catalytic activity/Vol] 16 U/L 16-61 [facility] Work Phone: CK [Catalytic activity/Vol] 219 U/L 39-308 [facility] Work Phone: CO2 [Moles/Vol] 23.0 mmol/L 21.0-32.0 [facility] Work Phone: Globulin (S) [Mass/Vol] 2.4 g/dL 2.2-4.2 [facility] Work Phone: Urea nitrogen/Creatinine [Mass ratio] 13.2 mg/mg 10-20 [facility] Work Phone: [phone] Laboratory - Hematology and Cell countson 07-17-2021 Erythrocyte distribution width (RBC) [Entitic vol] 38.9 fL 35.1-43.9 [facility] Work Phone: Erythrocyte distribution width (RBC) [Ratio] 12.0 % 11.6-14.6 [facility] Work Phone: Immature granulocytes/100 WBC (Bld) 0.300 % 0.0-0.9 [facility] Work Phone: Comment on above: IG% - Immature Granu locytes (promyelocytes, myelocytes and metamyelocytes) > 1% indicates that a LEFT SHIFT is Present. MCH (RBC) [Entitic mass] 31.1 pg 27.0-32.0 [facility] Work Phone: Nucleated RBC/100 WBC (Bld) [Ratio] 0 % 0-5 [facility] Work Phone: MCHC Auto (RBC) [Mass/Vol]on 07-17-2021 MCHC (RBC) [Mass/Vol] 34.9 g/dL 32-36 [facility] Work Phone: No Panel Informationon 07-17 Ceruloplasmin 12.3 mg/dL [facility] Work Phone: Comment on above: Performed at: [address] [id number] Director: Chon Peterson PhD, Phone: [phone] Valproic Acid (Depakene) Level 67 ug/mL 50-100 [facility] Work Phone: Estimated Creatinine Clearance Calc 159.96 ml/min [facility] Work Phone: Estimated GFR (MDRD) Amer 181 mL/min >60 [facility] Work Phone: Comment on above: GFR Calc Estimated GFR (MDRD) Non-Af Amer 150 mL/min >60 [facility] Work Phone: Comment on above: Non- GFR Calc Platelets bldon 07-17-2021 Platelets (Bld) [#/Vol] 151 10*3/uL 150-450 [facility] Work Phone: Serum or plasma albumin tata urement (mass/volume)on 07-17-2021 Albumin [Mass/Vol] 3.1 g/dL 3.2-5.0 [facility] Work Phone: Serum or plasma albumin/glob ulin mass ratioon 07-17-2021 Albumin/Globulin [Mass ratio] 1.3 {ratio} 0.9-2.4 [facility] Work Phone: Serum or plasma calcium tata urement (mass/volume)on 07-17-2021 Calcium [Mass/Vol] 7.6 mg/dL 8.5-10.1 [facility] Work Phone: Serum or plasma creatinine m easurement (mass/volume)on 07-17-2021 Creatinine [Mass/Vol] 0.68 mg/dL 0.70-1.30 [facility] Work Phone: Comment on above: The validity of the calculated GFR & GFRAA in patients over 70 years has not been determined. Clinical correlation is essential. Serum or plasma ferritin marie surement (mass/volume)on 07-17-2021 Ferritin [Mass/Vol] 205 ng/mL 26-388 [facility] Work Phone: Serum or plasma urea nitroge n measurement (mass/volume)on 07-17-2021 Urea nitrogen [Mass/Vol] 9 mg/dL 7-18 [facility] Work Phone: Thin prep Papanicolaou smear with manual screeningon 07-17-2021 Thin prep Papanicolaou smear with manual screening 65 ug/dL [facility] Work Phone: Comment on above: Detection Limit = 5P erformed at: [facility] [id number] Director: Ale Shane MD, Phone: [phone] Thin prep Papanicolaou smear with manual screening 10 U/L 15-37 [facility] Work Phone: Thin prep Papanicolaou smear with manual screening 4 5-15 [facility] Work Phone: Absolute lymphocyte counton 07-16-2021 Lymphocytes Auto (Unsp spec) [#/Vol] 1.66 10*3/uL 0.83-4.51 [facility] Work Phone: Acetaminophen level (mass/vo lume)on 07-16-2021 Acetaminophen (Unsp spec) [Mass/Vol] < 2.0 ug/mL 10.0-30.0 [facility] Work Phone: Amorphous sediment detection in urine sediment by light microscopyon 07-16-2021 Amorphous sediment LM Ql (Urine sed) 1+ [facility] Work Phone: Basophil percentageon 2021 Lactate [Moles/Vol] 3.4 mmol/L 0.4-2.0 [facility] Work Phone: Comment on above: Critical Result(s) C alled at: 11:22:48 07/16/2021 by: [facility]. Results read back by same. Basophil percentage 0 SEEN /hpf [facility] Work Phone: Ammonia (P) [Moles/Vol] 205.0 umol/L 11-32 [facility] Work Phone: Basophil percentage 2.8 mg/dL 2.5-4.9 [facility] Work Phone: Basophils/100 WBC (Bld) 0.2 % 0-1 [facility] Work Phone: Bilirubin [Mass/Vol] 0.40 mg/dL 0.20-1.00 [facility] Work Phone: Comment on above: For patients on eltr ombopag therapy, use of Dimension [place] TBIL is not recommended. Chloride [Moles/Vol] 108 mmol/L 98-107 [facility] Work Phone: Eosinophils/100 WBC (Bld) 0.0 % 0-5 [facility] Work Phone: Glucose [Mass/Vol] 96 mg/dL 74-106 [facility] Work Phone: Lactate [Moles/Vol] 4.2 mmol/L 0.4-2.0 [facility] Work Phone: Comment on above: Critical Result(s) C alled at: 04:15:05 07/16/2021 by: JOSE BURLEY to M Long [employer]. Results read back by same. Neutrophils (Bld) [#/Vol] 12.4 10*3/uL 2.0-7.7 [facility] Work Phone: Neutrophils/100 WBC (Bld) 81.3 % 47-70 [facility] Work Phone: Potassium [Moles/Vol] 3.5 mmol/L 3.5-5.1 [facility] Work Phone: Protein [Mass/Vol] 7.7 g/dL 6.4-8.2 [facility] Work Phone: Sodium [Moles/Vol] 139 mmol/L 136-145 [facility] Work Phone: WBC (Bld) [#/Vol] 15.2 10*3/uL 4.4-11.0 [facility] Work Phone: Bilirubin Test strip Ql (U)o n 07-16-2021 Bilirubin Ql (U) Negative Negative [facility] Work Phone: Blood erythrocytes count (nu mber/volume)on 07-16-2021 RBC (Bld) [#/Vol] 5.03 10*6/uL 4.6-6.2 [facility] Work Phone: Blood hemoglobin measurement (mass/volume)on 07-16-2021 Hemoglobin (Bld) [Mass/Vol] 15.5 g/dL 13.0-16.5 [facility] Work Phone: Blood lymphocytes/100 leukoc yteson 07-16-2021 Lymphocytes/100 WBC (Bld) 10.9 % 19-41 [facility] Work Phone: Blood monocytes/100 leukocyt eson 07-16-2021 Monocytes/100 WBC (Bld) 7.1 % 0-10 [facility] Work Phone: Blood platelet mean volumeon 07-16-2021 Platelet mean volume (Bld) [Entitic vol] 11.3 fL 6.2-12.0 [facility] Work Phone: Determination of erythrocyte mean corpuscular volume (MCV)on 07-16-2021 MCV (RBC) [Entitic vol] 89.1 fL 80-94 [facility] Work [phone] Direct bilirubinon 2 Bilirubin.direct [Mass/Vol] 0.09 mg/dL 0.00-0.30 [facility] Work Phone: Hematocrit Auto (Bld) [Volum e fraction]on 07-16-2021 Hematocrit (Bld) [Volume fraction] 44.8 % 40-54 [facility] Work Phone: INR in Blood by Coagulation assayon 07-16-2021 INR Coag (Bld) [Relative time] 1.2 {INR} [facility] Work Phone: Ketones Test strip Ql (U)on 07-16-2021 Ketones Ql (U) 15 mg/dl Negative [facility] Work Phone: Laboratory - Chemistry and C hemistry - challengeon 07-16-2021 ALP [Catalytic activity/Vol] 77 U/L 45-117 [facility] Work Phone: ALT [Catalytic activity/Vol] 22 U/L 16-61 [facility] Work Phone: CO2 [Moles/Vol] 22.0 mmol/L 21.0-32.0 [facility] Work Phone: Free T4 [Mass/Vol] 0.91 ng/dL 0.76-1.46 [facility] Work Phone: Globulin (S) [Mass/Vol] 3.3 g/dL 2.2-4.2 [facility] Work Phone: Magnesium [Mass/Vol] 2.6 mg/dL 1.6-2.6 [facility] Work Phone: Urea nitrogen/Creatinine [Mass ratio] 7.6 mg/mg 10-20 [facility] Work Phone: Laboratory - Coagulationon 0 07-16-2021 aPTT Coag (Bld) [Time] 29.1 s 24.1-36.2 [facility] Work Phone: PT Coag (PPP) [Time] 14.3 s 11.7-14.9 [facility] Work Phone: Laboratory - Drug toxicology on 07-16-2021 Amphetamines Ql (U) Negative [facility] Work Phone: Benzodiazepines Ql (U) Positive [facility] Work Phone: Cannabinoids Screen Ql (U) Positive [facility] Work Phone: Cocaine Ql (U) Negative [facility] Work Phone: Opiates Ql (U) Negative [facility] Work Phone: Laboratory - Hematology and Cell countson 07-16-2021 Erythrocyte distribution width (RBC) [Entitic vol] 38.7 fL 35.1-43.9 [facility] Work Phone: Erythrocyte distribution width (RBC) [Ratio] 11.9 % 11.6-14.6 [facility] Work Phone: Immature granulocytes/100 WBC (Bld) 0.500 % 0.0-0.9 [facility] Work Phone: Comment on above: IG% - Immature Granu locytes (promyelocytes, myelocytes and metamyelocytes) > 1% indicates that a LEFT SHIFT is Present. MCH (RBC) [Entitic mass] 30.8 pg 27.0-32.0 [facility] Work Phone: Nucleated RBC/100 WBC (Bld) [Ratio] 0 % 0-5 [facility] Work Phone: MCHC Auto (RBC) [Mass/Vol]on 07-16-2021 MCHC (RBC) [Mass/Vol] 34.6 g/dL 32-36 [facility] Work Phone: Mucus LM Ql (Urine sed)on Mucus Ql (Urine sed) 0 SEEN /hpf [facility] Work Phone: Nitrite Test strip Ql (U)on 07-16-2021 Nitrite Ql (U) Negative Negative [facility] Work Phone: No Panel Informationon 07-16 MDMA (Ecstasy) Screen Negative [facility] Work Phone: Urine Barbiturates Screen Negative [facility] Work Phone: Urine Drug Screen Comment [facility] Work Phone: Comment on above: CONFIRMATORY TESTING FOR ALL POSITIVE URINE DRUG SCREENRESULTS WILL ONLY BE SENT OUT UPON PHYSICIAN ORDER. VISTA Urine Drug Screen methods provide only preliminaryanalytical test results. A more specific alternate chemicalmethod must be used in order to obtain a confirmedanalytical result. Gas chromatography/mass spectrometery(GC/MS) is the preferred confirmatory method. Clinicalconsideration and professional judgement should be appliedto any drug of abuse test result, particularly whenpreliminary positive results are used. URINE TCA TESTING MUST BE ORDERED SEPARATELY. USE TESTMNEMONIC: [facility] Urine Methadone Screen Negative [facility] Work Phone: Estimated Creatinine Clearance Calc 126.00 ml/min [facility] Work Phone: Estimated GFR (MDRD) Amer 128 mL/min >60 [facility] Work Phone: Comment on above: GFR Calc Estimated GFR (MDRD) Non-Af Amer 106 mL/min >60 [facility] Work Phone: Comment on above: Non- GFR Calc Ethyl Alcohol Level < 3.0 mg/dL [facility] Work Phone: Comment on above: The serum:whole bloo d ethanol ratio is approximately 1.14and varies slightly with hematocrit. Medical Alcohol reference interval and critical value innon-tolerant individuals; 50 - 100 Impairment 100 Intoxication 100 - 250 Severe Poisoning 250 - 400 Deep/possible fatal coma Thyroid Stimulating Hormone (TSH) 1.76 uIU/mL 0.358-3.74 [facility] Work Phone: Platelets bldon 07-16-2021 Platelets (Bld) [#/Vol] 210 10*3/uL 150-450 [facility] Work Phone: Protein Test strip Ql (U)on 07-16-2021 Protein Ql (U) 30 mg/dl Negative [facility] Work Phone: Serum or plasma albumin tata urement (mass/volume)on 07-16-2021 Albumin [Mass/Vol] 4.4 g/dL 3.2-5.0 [facility] Work Phone: Serum or plasma calcium tata urement (mass/volume)on 07-16-2021 Calcium [Mass/Vol] 8.9 mg/dL 8.5-10.1 [facility] Work Phone: Serum or plasma creatinine m easurement (mass/volume)on 07-16-2021 Creatinine [Mass/Vol] 0.92 mg/dL 0.70-1.30 [facility] Work Phone: Comment on above: The validity of the calculated GFR & GFRAA in patients over 70 years has not been determined. Clinical correlation is essential. Serum or plasma salicylates measurement (mass/volume)on 07-16-2021 Salicylates [Mass/Vol] mg/dL 2.8-20.0 [facility] Work Phone: Serum or plasma urea nitroge n measurement (mass/volume)on 07-16-2021 Urea nitrogen [Mass/Vol] 7 mg/dL 7-18 [facility] Work Phone: Squamous epithelial cells de tection in urine sediment by light microscopyon 07-16-2021 Epithelial cells.squamous LM Ql (Urine sed) 0 SEEN /hpf [facility] Work Phone: Thin prep Papanicolaou smear with manual screeningon 07-16-2021 Thin prep Papanicolaou smear with manual screening 13 U/L 15-37 [facility] Work Phone: Thin prep Papanicolaou smear with manual screening 9 5-15 [facility] Work Phone: Urine blood detectionon RBC Ql (U) 10 /ul Negative [facility] Work Phone: RBC Ql (U) 0 SEEN /hpf [facility] Work Phone: Urine clarityon 07-16-2021 Clarity (U) Clear Clear [facility] Work Phone: Urine color determinationon 07-16-2021 Color (U) Yellow Yellow [facility] Work Phone: Urine glucose detectionon Glucose Ql (U) Normal mg/dl Normal [facility] Work Phone: Urine leukocyte esterase det ection by dipstickon 07-16-2021 Leukocyte esterase Test strip Ql (U) Negative Negative [facility] Work Phone: Urine pHon 07-16-2021 pH (U) 8.0 [pH] [facility] Work Phone: Urine phencyclidine (PCP) de tectionon 07-16-2021 Phencyclidine Ql (U) Negative [facility] Work Phone: Urine sediment bacteria coun t by microscopy (number/high power field)on 07-16-2021 Bacteria LM.HPF (Urine sed) [#/Area] 2 /[HPF] None Seen [facility] Work Phone: Urine specific gravity measu rementon 07-16-2021 Specific gravity (U) [Rel density] 1.015 [facility] Work Phone: Urobilinogen Auto test strip Ql (U)on 07-16-2021 Urobilinogen Ql (U) 1 mg/dl Normal [facility] Work Phone: Basic metabolic 2000 panelon 06-30-2021 Anion gap [Moles/Vol] 11 mmol/L Normal 9-18 [facility] Comment on above: Order Comment: Speci men Type: BLOOD SPECIMEN Ordering Facility: [facility] Address: [address] [place] [address] Performed By: #### 2 4321-2 #### [facility] CLIA [id number] [address] [place] [address] [place] Calcium [Mass/Vol] 9.3 mg/dL Normal 8.5-10.2 [facility] Comment on above: Order Comment: Speci men Type: BLOOD SPECIMEN Ordering Facility: [facility] Address: [address] [place] [address] Performed By: #### 2 4321-2 #### [facility] CLIA [id number] [address] [place] [address] [place] Chloride [Moles/Vol] 101 mmol/L Normal 97-105 [facility] Comment on above: Order Comment: Speci men Type: BLOOD SPECIMEN Ordering Facility: [facility] Address: [address] [place] [place] [address] Performed By: #### 2 4321-2 #### [facility] CLIA [id number] [address] [place] [address] [place] CO2 [Moles/Vol] 25 mmol/L Normal 22-30 [facility] Comment on above: Order Comment: Speci men Type: BLOOD SPECIMEN Ordering Facility: [facility] Address: [address] [place] [place] [address] Performed By: #### 2 4321-2 #### [facility] CLIA [id number] [address] [place] [address] [place] Creatinine [Mass/Vol] 1.11 mg/dL Normal 0.73-1.22 [facility] Comment on above: Order Comment: Speci men Type: BLOOD SPECIMEN Ordering Facility: [facility] Address: [address] [place] [address] Performed By: #### 2 4321-2 #### [facility] CLIA [id number] [address] [place] [address] [place] ESTIMATED GLOMERULAR FILTRATION RATE 95 mL/min/1.73m??? Normal >=60 [facility] Comment on above: Order Comment: Willy ross Type: BLOOD SPECIMEN Ordering Facility: [facility] Address: [address] [place] [address] Result Comment: Beatris mated Glomerular Filtration Rate (eGFR) is calculated using the 2020 CKD-EPI creatinine equation. This equation utilizes serum creatinine, sex, and age as parameters. The creatinine assay has traceable calibration to isotope dilution-mass spectrometry. Refer to KDIGO guidelines for clinical interpretation. In patients with unstable renal function, e.g. those with acute kidney injury, the eGFR may not accurately reflect actual GFR. Performed By: #### 2 4321-2 #### [facility] CLIA [id number] [address] [place] [address] [place] Glucose [Mass/Vol] 95 mg/dL Normal 74-99 [facility] Comment on above: Order Comment: Willy orss Type: BLOOD SPECIMEN Ordering Facility: [facility] Address: [address] [address] Result Comment: The [place] Diabetes Association (ADA) provides guidance for cutoff values for fasting glucose and random glucose. The ADA defines fasting as no caloric intake for at least 8 hours. Fasting plasma glucose results between 100 to 125 mg/dL indicate increased risk for diabetes (prediabetes). Fasting plasma glucose results greater than or equal to 126 mg/dL meet the criteria for diagnosis of diabetes. In the absence of unequivocal hyperglycemia, results should be confirmed by repeat testing. In a patient with classic symptoms of hyperglycemia or hyperglycemic crisis, random plasma glucose results greater than or equal to 200 mg/dL meet the criteria for diagnosis of diabetes. Reference: Standards of Medical Care in Diabetes 2016, [place] Diabetes Association. Diabetes Care. 2016.39(Suppl 1). Performed By: #### 2 4321-2 #### [facility] CLIA [id number] [address] [place] [address] [place] Potassium [Moles/Vol] 3.7 mmol/L Normal 3.7-5.1 [facility] Comment on above: Order Comment: Willy ross Type: BLOOD SPECIMEN Ordering Facility: [facility] Address: [address] [place] [address] Performed By: #### 2 4321-2 #### [facility] CLIA [id number] [address] [place] [facility] Sodium [Moles/Vol] 137 mmol/L Normal 136-144 [facility] Comment on above: Order Comment: Speci men Type: BLOOD SPECIMEN Ordering Facility: [facility] Address: [address] [place] [address] Performed By: #### 2 4321-2 #### [facility] CLIA [id number] [address] [place] Urea nitrogen [Mass/Vol] 6 mg/dL Low 9-24 [facility] Comment on above: Order Comment: Speci men Type: BLOOD SPECIMEN Ordering Facility: [facility] Address: [address] [place] [address] Performed By: #### 2 4321-2 #### [facility] CLIA [id number] [address] [place] CBC W Auto Differential pane l (Bld)on 06-30-2021 Basophils (Bld) [#/Vol] 10*3/uL Normal <0.11 [facility] Comment on above: Order Comment: Speci men Type: BLOOD SPECIMEN Ordering Facility: [facility] Address: [address] [place] [address] Performed By: #### 5 7021-8 #### [facility] CLIA [id number] [address] [place] [facility] [place] Basophils/100 WBC (Bld) 0.0 % Normal [facility] Comment on above: Order Comment: Speci men Type: BLOOD SPECIMEN Ordering Facility: [facility] Address: [address] [place] [address] Performed By: #### 5 7021-8 #### [facility] CLIA [id number] [address] Differential cell count method Nom (Bld) Auto Normal [facility] Comment on above: Order Comment: Speci men Type: BLOOD SPECIMEN Ordering Facility: [facility] Address: [address] [place] [address] Performed By: #### 5 7021-8 #### [facility] CLIA [id number] [address] [place] Eosinophils (Bld) [#/Vol] 10*3/uL Normal <0.46 [facility] Comment on above: Order Comment: Speci men Type: BLOOD SPECIMEN Ordering Facility: [facility] Address: [address] [place] [address] Performed By: #### 5 7021-8 #### [facility] CLIA [id number] [address] Eosinophils/100 WBC (Bld) 0.1 % Normal [facility] Comment on above: Order Comment: Speci men Type: BLOOD SPECIMEN Ordering Facility: [facility] Address: [address] [place] [address] Performed By: #### 5 7021-8 #### [facility] CLIA [id number] [address] [place] [address] [place] Erythrocyte distribution width (RBC) [Ratio] 12.0 % Normal 11.5-15.0 [facility] Comment on above: Order Comment: Speci men Type: BLOOD SPECIMEN Ordering Facility: [facility] Address: [address] [place] [address] Performed By: #### 5 7021-8 #### [facility] CLIA [id number] [address] Hematocrit (Bld) [Volume fraction] 41.2 % Normal 39.0-51.0 [facility] Comment on above: Order Comment: Speci men Type: BLOOD SPECIMEN Ordering Facility: [facility] Address: [address] [place] [address] Performed By: #### 5 7021-8 #### [facility] CLIA [id number] [address] [place] [address] [place] Hemoglobin (Bld) [Mass/Vol] 14.0 g/dL Normal 13.0-17.0 [facility] Comment on above: Order Comment: Speci men Type: BLOOD SPECIMEN Ordering Facility: [facility] Address: [address] [place] [address] Performed By: #### 5 7021-8 #### [facility] CLIA [id number] [address] [place] [address] [place] Lymphocytes (Bld) [#/Vol] 1.22 10*3/uL Normal 1.00-4.00 [facility] Comment on above: Order Comment: Speci men Type: BLOOD SPECIMEN Ordering Facility: [facility] Address: [address] [place] [address] Performed By: #### 5 7021-8 #### [facility] CLIA [id number] [address] [place] [address] [place] Lymphocytes/100 WBC (Bld) 14.4 % Normal [facility] Comment on above: Order Comment: Speci men Type: BLOOD SPECIMEN Ordering Facility: [facility] Address: [address] [place] [address] Performed By: #### 5 7021-8 #### [facility] CLIA [id number] [address] [place] [address] [place] MCH (RBC) [Entitic mass] 31.0 pg Normal 26.0-34.0 [facility] Comment on above: Order Comment: Speci men Type: BLOOD SPECIMEN Ordering Facility: [facility] Address: [address] [place] [address] Performed By: #### 5 7021-8 #### [facility] CLIA [id number] [address] [place] [address] [place] MCHC (RBC) [Mass/Vol] 34.0 g/dL Normal 30.5-36.0 [facility] Comment on above: Order Comment: Speci men Type: BLOOD SPECIMEN Ordering Facility: [facility] Address: [address] [place] [address] Performed By: #### 5 7021-8 #### [facility] CLIA [id number] [address] [place] [address] [place] MCV (RBC) [Entitic vol] 91.2 fL Normal 80.0-100.0 [facility] Comment on above: Order Comment: Speci men Type: BLOOD SPECIMEN Ordering Facility: [facility] Address: [address] [place] [address] Performed By: #### 5 7021-8 #### [facility] CLIA [id number] [address] [place] [address] [place] Monocytes (Bld) [#/Vol] 0.72 10*3/uL Normal <0.87 [facility] Comment on above: Order Comment: Speci men Type: BLOOD SPECIMEN Ordering Facility: [facility] Address: [address] [place] [address] Performed By: #### 5 7021-8 #### [facility] CLIA [id number] [address] [place] [address] [place] Monocytes/100 WBC (Bld) 8.5 % Normal [facility] Comment on above: Order Comment: Speci men Type: BLOOD SPECIMEN Ordering Facility: [facility] Address: [address] [place], [place] [address] Performed By: #### 5 7021-8 #### [facility] CLIA [id number] [address] [place] [address] [place] Neutrophils (Bld) [#/Vol] 6.51 10*3/uL Normal 1.45-7.50 [facility] Comment on above: Order Comment: Speci men Type: BLOOD SPECIMEN Ordering Facility: [facility] Address: [address] [place] [address] Performed By: #### 5 7021-8 #### [facility] CLIA [id number] [address] [place] [address] [place] Neutrophils/100 WBC (Bld) 77.0 % Normal [facility] Comment on above: Order Comment: Speci men Type: BLOOD SPECIMEN Ordering Facility: [facility] Address: [address] [place] [address] Performed By: #### 5 7021-8 #### [facility] CLIA [id number] [address] [place] [address] [place] Platelet mean volume (Bld) [Entitic vol] 11.6 fL Normal 9.0-12.7 [facility] Comment on above: Order Comment: Speci men Type: BLOOD SPECIMEN Ordering Facility: [facility] Address: [address] [place] [address] Performed By: #### 5 7021-8 #### [facility] CLIA [id number] [address] [place] [address] [place] Platelets (Bld) [#/Vol] 216 10*3/uL Normal 150-400 [facility] Comment on above: Order Comment: Speci men Type: BLOOD SPECIMEN Ordering Facility: [facility] Address: [address] [place] [address] Performed By: #### 5 7021-8 #### [facility] CLIA [id number] [address] [place] [address] [place] RBC (Bld) [#/Vol] 4.52 10*6/uL Normal 4.20-6.00 [facility] Comment on above: Order Comment: Speci men Type: BLOOD SPECIMEN Ordering Facility: [facility] Address: [address] [place] [address] Performed By: #### 5 7021-8 #### [facility] CLIA [id number] [address] [place] [address] [place] WBC (Bld) [#/Vol] 8.46 10*3/uL Normal 3.70-11.00 [facility] Comment on above: Order Comment: Speci men Type: BLOOD SPECIMEN Ordering Facility: [facility] Address: [address] [place] [address] Performed By: #### 5 7021-8 #### [facility] CLIA [id number] [address] [place], [place] [id number] [facility] CK CREATINE KINASEon 022 CK [Catalytic activity/Vol] 78 U/L Normal 51-298 [facility] Comment on above: Order Comment: Willy ross Type: BLOOD SPECIMEN Ordering Facility: [facility] Address: [address] [place] [address] Performed By: #### C K #### [facility] CLIA [id number] [address] [place], [place] [id number] [facility] HIGH SENSITIVITY TROPONIN To n 06-30-2021 HIGH SENSITIVITY KEYONA <6 Normal <12 [facility] Comment on above: Order Comment: Willy ross Type: BLOOD SPECIMEN Ordering Facility: [facility] Address: [address] [place] [address] Result Comment: When assessing risk for acute coronary syndromes: In patients undergoing blood draw greater than or equal to 2 hours from symptom onset, with history of very low to moderate risk and non-ischemic ECG, an initial hs-Troponin T less than 12 ng/L AND a 1 hour delta hs-Troponin T less than 3 ng/L should be considered very low risk for 30 day MACE. Performed By: #### H STNT #### [facility] CLIA [id number] [address] [place], [place] [id number] [facility] [place] ALLIED HEALTHon 06-29-2021 ALLIED HEALTH HNO ID: [id number] Author: RT Marsha(R) Service: Radiology Author Type: Technologist Type: Allied Health Filed: 06/29/2021 8:13 PM Note Text: Radiology Service Progress Note PATIENT NAME: Steve Quach DATE OF SERVICE: June 29, 2021 TIME: 8:13 PM PATIENT IDENTITY VERIFICATION COMPLETED USING TWO (2) IDENTIFIERS: Name and Date of confirmed by patient verbally and Name and Date of confirmed by identification band. FALL SCREENING: Has the patient had 2 falls in the last year or 1 fall with injury or currently using an Ambulatory Assistive Device (Walker, Cane, Wheelchair, Crutches, etc.)? Emergency Room Patient: Screened in ED PATIENT GENDER DATA: Male PATIENT RELEVANT IMPLANT DATA REVIEWED: Not Applicable RADIOLOGY DEPARTMENT: General X-ray: Exam(s) Completed: Chest X-Ray PERIPHERAL IV DATA: Not applicable SIGNED BY: RT Marsha(R) June 29, 2021 8:13 PM Normal [facility] C trach+GC DNA Ur Ql NELSON+pro beon 06-29-2021 C. trachomatis+N. gonorrhoeae DNA NELSON+probe Ql (U) GC AMPLIFICATION: Negative for Neisseria gonorrhoeae by amplification CHLAMYDIA AMPLIFICATION: Negative for Chlamydia trachomatis by amplification Normal [facility] Comment on above: Performed By: #### 4 4806-8 #### [facility] CLIA [id number] [address] ED NOTEon 06-29-2021 ED NOTE HNO ID: [id number] Author: Hemanth Smallwood Service: ? Author Type: Sports Marketer and Lens Grinder Rough Type: ED Notes Filed: 06/29/2021 5:35 PM Note Text: Bed: [facility] Expected date: Expected time: Means of arrival: [facility] Comments: [facility] AFD Normal [facility] ED PROV NOTEon 06-29-2021 ED PROV NOTE HNO ID: [id number] Author: Katie Le MD Service: Emergency Medicine Author Type: Physician Type: ED Provider Notes Filed: 07/01/2021 5:09 PM Note Text: ED Provider Note Patient Name: Steve Quach : 1995 SERVICE DATE: 06/29/21 History Patient presents with: Multiple Concerns: pt to ed from [facility] complaining of left side pain and blood coming out of my penis. Pt reports he also went to [facility] and they didn't do anything. Patient is a 25-year-old male presenting today with multiple complaints. He is here because he thinks he is dying and needs to find out what is wrong with him. He states that he found [facility] within the last 2 weeks and he told him that there is something wrong internally and that he needs to get it correct or else he is going to . He comes in with complaint chest pain. When he speaks to the chest pain he points to his left inferior lateral chest wall. He states that this hurts the most but that he has the same pain on both sides of his chest. This has been present now for over a week. He thinks he might be bleeding internally from a broken rib but happened a month ago while he was in [facility] he also has complaints of blood with ejaculation. He was having intercourse with his girlfriend. He states afterwards he noted blood to the tip of his penis and that the ejaculate hurt. He is concerned he may have an STD. Is also concerned he may have a UTI. Initially presented [facility] at [facility]'s ER. There is an EKG due to the chest pain but I am able to see here is a send it through with him. There was no associated with other T changes or T wave versions. This is his fourth ER visit in the last 3 days for the same complaints. He was also seen at [facility]. I am not able to see the note but I can see the lab work and all of the testing done which was all normal including chest x-ray troponins CBC and BMP. PAST MEDICAL HISTORY Diagnosis Date - Bipolar 1 disorder (HCC) - Psychiatric disorder - Schizoaffective disorder (HCC) PAST SURGICAL HISTORY Procedure Laterality Date - ORTHOPEDICS SURGERY HX No family history on file. Social History Tobacco Use - Smoking status: Current Every Day Smoker Packs/day: 1.00 Types: Cigarettes - Smokeless tobacco: Never Used - Tobacco comment: vape Vaping Use - Vaping Use: current everyday user - Substances: Nicotine, No THC (stopped d/t anxiety), Flavoring - Devices: Pre-filled or refillable cartridge Substance and Sexual Activity - Alcohol use: No - Drug use: No - Sexual activity: Yes Partners: Female ALLERGIES Allergen Reactions - Penicillins Rash Review of Systems Constitutional: Negative for activity change, appetite change, chills, fatigue and fever. HENT: Negative for congestion, ear pain, rhinorrhea and sore throat. Respiratory: Negative for cough and shortness of breath. Cardiovascular: Positive for chest pain. Negative for palpitations. Gastrointestinal: Negative for abdominal pain, diarrhea, nausea and vomiting. Genitourinary: Positive for dysuria and penile discharge. Negative for decreased urine volume, frequency, penile pain, penile swelling, scrotal swelling, testicular pain and urgency. Musculoskeletal: Negative for arthralgias and myalgias. Skin: Negative for rash and wound. Neurological: Negative for dizziness and headaches. Psychiatric/Behavioral: Negative for self-injury and suicidal ideas. All other systems reviewed and are negative. Physical Exam Vitals [06/29/21 1737] BP Pulse Temp Temp src Resp SpO2 Weight Height 115/84 89 36.6 ?C (97.9 ?F) Oral 20 98 % 70.3 kg (155 lb) 1.778 m (5' 10) Physical Exam Vitals and nursing note reviewed. Constitutional: General: He is not in acute distress. Appearance: He is well-developed. He is not ill-appearing. HENT: Head: Normocephalic and atraumatic. Nose: Nose normal. Mouth/Throat: Mouth: Mucous membranes are moist. Pharynx: Oropharynx is clear. Eyes: Extraocular Movements: Extraocular movements intact. Pupils: Pupils are equal, round, and reactive to light. Cardiovascular: Rate and Rhythm: Normal rate and regular rhythm. Pulses: Normal pulses. Heart sounds: Normal heart sounds. No murmur heard. No friction rub. No gallop. Pulmonary: Effort: Pulmonary effort is normal. No respiratory distress. Breath sounds: Normal breath sounds. No stridor. No wheezing, rhonchi or rales. Chest: Chest wall: No tenderness. Abdominal: General: Bowel sounds are normal. There is no distension. Palpations: Abdomen is soft. Tenderness: There is no abdominal tenderness. There is no right CVA tenderness, left CVA tenderness, guarding or rebound. Musculoskeletal: General: Normal range of motion. Cervical back: Normal range of motion and neck supple. Right lower leg: No edema. Left lower leg: No edema. Skin: General: Skin is warm and d (more content not included)... Normal [facility] ED Provider Progress Noteon 06-29-2021 [employer] Specialist Authentication Interface Message Text Steve De La Rosamings : 1995 Chief Complaint Patient presents with Chest Pain Animal Bite Male Problem Allergies Allergen Reactions Pcn [Penicillins] Hives DOS: (Not on file) 25yo M reports he has chest pain after getting bitten by a cat 2 months ago. Patient initially denied all drug use then reported some drug use. Reports rib pain after coughing too much, he thinks he broke a rib. Reports God is telling him he's dying. Reports bleeding from penis. Reports stats on deaths caused by heart attacks after cat bites. Review of Systems Cardiovascular: Positive for chest pain. Skin: Positive for wound. Psychiatric/Behavioral: Positive for confusion and decreased concentration. Limited ROS due to patient's mental status. No past medical history on file. No past surgical history on file. Pediatric History Patient Parents Not on file Other Topics Concern Not on file Social History Narrative Not on file ED Triage Vitals None Physical Exam Constitutional: Appearance: He is well-developed. He is not ill-appearing. Comments: Appears high Cardiovascular: Rate and Rhythm: Regular rhythm. Tachycardia present. Heart sounds: Normal heart sounds. Pulmonary: Effort: Pulmonary effort is normal. No respiratory distress. Breath sounds: Normal breath sounds. Skin: Capillary Refill: Capillary refill takes less than 2 seconds. Neurological: General: No focal deficit present. Mental Status: He is alert. Comments: Pressured speech, appears high Psychiatric: Mood and Affect: Mood is anxious. Procedures MDM ED Course: Labs/Radiology: EKG- no ST segment elevation Consults: No orders of the defined types were placed in this encounter. Medical Record/Transferring Institution Record: n/a Treatment/Reassessment: below Encounter Documentation/Handoff: Medical Decision Making as of 06/29/21 1744 Sun Jun 29, 2021 1658 I spoke to [facility] to arrange for transfer via [facility]. [CC] 1658 EKG 12 lead (ECG) EKG without ST segment elevation. [CC] 1706 Discussed with [facility] attending who accepted the patient for admission. [CC] 1706 [facility] here. Patient agrees to transfer. [CC] Medical Decision Making User Index [CC] Bonnie Marcano MD 25yo M who appears under the influence of drugs reports chest pain several months after cat bite. Also reports rib pain after coughing too much. Will get EKG to look for ST segment elevation and plan to transport him via [facility] to [facility]. Patient in agreement with plan. I personally performed alfredo portions of the history and physical examination of this patient and discussed the management plan with the resident. I reviewed the resident's note and agree with the documented findings and plan of care, except as noted by and bold. See my documentation under MDM. Bonnie Marcano MD 06/29/2021 6:08 PM Normal [facility] Urinalysis complete panel (U )on 06-29-2021 Bilirubin Ql (U) Negative Normal Negative [facility] Comment on above: Order Comment: Speci men Type: URINE SPECIMEN Ordering Facility: [facility] Address: [address] [address] Performed By: #### 2 4356-8 #### [facility] CLIA [id number] [address] Clarity (Unsp spec) Clear Normal Clear [facility] Comment on above: Order Comment: Speci men Type: URINE SPECIMEN Ordering Facility: [facility] Address: [address] [address] Performed By: #### 2 4356-8 #### [facility] CLIA [id number] [address] [facility] Color (U) Light Yellow Normal yellow [facility] Comment on above: Order Comment: Speci men Type: URINE SPECIMEN Ordering Facility: [facility] Address: [address] [place] [address] Performed By: #### 2 4356-8 #### [facility] CLIA [id number] [address] Glucose Test strip (U) [Mass/Vol] Negative Normal Negative [facility] Comment on above: Order Comment: Speci men Type: URINE SPECIMEN Ordering Facility: [facility] Address: [address] [place] [address] Performed By: #### 2 4356-8 #### [facility] CLIA [id number] [address] [place] Hemoglobin Ql (U) Negative Normal Negative [facility] Comment on above: Order Comment: Speci men Type: URINE SPECIMEN Ordering Facility: [facility] Address: [address] [address] Performed By: #### 2 4356-8 #### [facility] CLIA [id number] [address] Ketones Ql (U) Negative Normal Negative [facility] Comment on above: Order Comment: Speci men Type: URINE SPECIMEN Ordering Facility: [facility] Address: [address] [address] Performed By: #### 2 4356-8 #### [facility] CLIA [id number] [address] Leukocyte esterase Test strip Ql (U) Negative Normal Negative [facility] Comment on above: Order Comment: Speci men Type: URINE SPECIMEN Ordering Facility: [facility] Address: [address] [place] [address] Performed By: #### 2 4356-8 #### [facility] CLIA [id number] [address] [place] OF [facility] Nitrite Ql (U) Negative Normal Negative [facility] Comment on above: Order Comment: Speci men Type: URINE SPECIMEN Ordering Facility: [facility] Address: [address] [place] [address] Performed By: #### 2 4356-8 #### [facility] CLIA [id number] [address] [place] pH (U) 8.0 [pH] Normal 5.0-8.0 [facility] Comment on above: Order Comment: Speci men Type: URINE SPECIMEN Ordering Facility: [facility] Address: [address] [address] Performed By: #### 2 4356-8 #### [facility] CLIA [id number] [address] [place] Protein (U) [Mass/Vol] Trace Abnormal Negative [facility] Comment on above: Order Comment: Speci men Type: URINE SPECIMEN Ordering Facility: [facility] Address: [address] [place], [place] [id number] Performed By: #### 2 4356-8 #### [facility] CLIA [id number] [address] RBC LM.HPF (Urine sed) [#/Area] 0-3 /HPF Normal 0-3 /HPF [facility] Comment on above: Order Comment: Speci men Type: URINE SPECIMEN Ordering Facility: [facility] Address: [address] [place] [address] Performed By: #### 2 4356-8 #### [facility] CLIA [id number] [address] Specific gravity (U) [Rel density] 1.023 Normal 1.005-1.030 [facility] Comment on above: Order Comment: Speci men Type: URINE SPECIMEN Ordering Facility: [facility] Address: [address] [place] [address] Performed By: #### 2 4356-8 #### [facility] CLIA [id number] [address] Urobilinogen Ql (U) Normal Normal Negative [facility] Comment on above: Order Comment: Speci men Type: URINE SPECIMEN Ordering Facility: [facility] Address: [address] [place] [address] Performed By: #### 2 4356-8 #### [facility] CLIA [id number] [address] WBC LM.HPF (Urine sed) [#/Area] 0-5 /HPF Normal 0-5 /HPF [facility] Comment on above: Order Comment: Speci men Type: URINE SPECIMEN Ordering Facility: [facility] Address: [address] [place] [address] Performed By: #### 2 4356-8 #### [facility] CLIA [id number] [address] [place] XR CHEST 2V FRONTAL/LATon XR CHEST 2V FRONTAL/LAT * * *Final Report* * * DATE OF EXAM: Jun 29 2021 8:14PM AKX 5291 - XR CHEST 2V FRONTAL/LAT / PROCEDURE REASON: Chest pain * * * * Physician Interpretation * * * * EXAMINATION: CHEST RADIOGRAPH (2 VIEW FRONTAL and LATERAL) CLINICAL HISTORY: Chest pain MQ: [id number] EXAM DATE/TIME: 06/29/2021 8:14 PM COMPARISON: No relevant prior studies available. RESULT: Lines, tubes, and devices: None. Lungs and pleura: No consolidation. No pleural effusion. No pneumothorax. Cardiomediastinal silhouette: Normal cardiomediastinal silhouette. Bones and soft tissues: No acute findings. IMPRESSION: No acute radiographic abnormality. Bingo Usher: PSCB Transcribe Date/Time: Jun 29 2021 8:30P Dictated by : OJ ALFONSO MD This examination was interpreted and the report reviewed and electronically signed by: OJ ALFONSO MD on Jun 29 2021 8:30PM EST [id number] Normal [facility] Basophil percentageon 2021 Chloride [Moles/Vol] 106 mmol/L 98-107 [facility] Work Phone: Glucose [Mass/Vol] 171 mg/dL 74-106 [facility] Work Phone: Comment on above: Fasting Glucose resu lt greater than or equal to 126 mg/dL suggests DIABETES MELLITUS per A.D.A. criteria. Potassium [Moles/Vol] 3.0 mmol/L 3.5-5.1 [facility] Work Phone: Sodium [Moles/Vol] 139 mmol/L 136-145 [facility] Work Phone: WBC (Bld) [#/Vol] 6.3 10*3/uL 4.4-11.0 [facility] Work Phone: Blood erythrocytes count (nu mber/volume)on 06-28-2021 RBC (Bld) [#/Vol] 4.76 10*6/uL 4.6-6.2 [facility] Work Phone: Blood hemoglobin measurement (mass/volume)on 06-28-2021 Hemoglobin (Bld) [Mass/Vol] 14.9 g/dL 13.0-16.5 [facility] Work Phone: Blood platelet mean volumeon 06-28-2021 Platelet mean volume (Bld) [Entitic vol] 11.3 fL 6.2-12.0 [facility] Work Phone: Determination of erythrocyte mean corpuscular volume (MCV)on 06-28-2021 MCV (RBC) [Entitic vol] 87.4 fL 80-94 [facility] Work Phone: Hematocrit Auto (Bld) [Volum e fraction]on 06-28-2021 Hematocrit (Bld) [Volume fraction] 41.6 % 40-54 [facility] Work Phone: Laboratory - Chemistry and C hemistry - challengeon 06-28-2021 CO2 [Moles/Vol] 24.0 mmol/L 21.0-32.0 [facility] Work Phone: Urea nitrogen/Creatinine [Mass ratio] 5.0 mg/mg 10-20 [facility] Work Phone: Laboratory - Hematology and Cell countson 06-28-2021 Erythrocyte distribution width (RBC) [Entitic vol] 38.0 fL 35.1-43.9 [facility] Work Phone: Erythrocyte distribution width (RBC) [Ratio] 11.8 % 11.6-14.6 [facility] Work Phone: MCH (RBC) [Entitic mass] 31.3 pg 27.0-32.0 [facility] Work Phone: MCHC Auto (RBC) [Mass/Vol]on 06-28-2021 MCHC (RBC) [Mass/Vol] 35.8 g/dL 32-36 [facility] Work Phone: No Panel Informationon 06-28 Estimated Creatinine Clearance Calc 108.96 ml/min [facility] Work Phone: Estimated GFR (MDRD) Amer 115 mL/min >60 [facility] Work Phone: Comment on above: GFR Calc Estimated GFR (MDRD) Non-Af Amer 95 mL/min >60 [facility] Work Phone: Comment on above: Non- GFR Calc Platelets bldon 06-28-2021 Platelets (Bld) [#/Vol] 214 10*3/uL 150-450 [facility] Work Phone: Serum or plasma calcium tata urement (mass/volume)on 06-28-2021 Calcium [Mass/Vol] 8.9 mg/dL 8.5-10.1 [facility] Work Phone: Serum or plasma creatinine m easurement (mass/volume)on 06-28-2021 Creatinine [Mass/Vol] 1.01 mg/dL 0.70-1.30 [facility] Work Phone: Comment on above: The validity of the calculated GFR & GFRAA in patients over 70 years has not been determined. Clinical correlation is essential. Serum or plasma urea nitroge n measurement (mass/volume)on 06-28-2021 Urea nitrogen [Mass/Vol] 5 mg/dL 7-18 [facility] Work Phone: Thin prep Papanicolaou smear with manual screeningon 06-28-2021 Thin prep Papanicolaou smear with manual screening 9 5-15 [facility] Work Phone: Absolute lymphocyte counton 05-07-2021 Lymphocytes Auto (Unsp spec) [#/Vol] 4.15 10*3/uL 0.83-4.51 [facility] Work Phone: Basophil percentageon 2021 Basophils/100 WBC (Bld) 0.4 % 0-1 [facility] Work Phone: Chloride [Moles/Vol] 104 mmol/L 98-107 [facility] Work Phone: Eosinophils/100 WBC (Bld) 0.9 % 0-5 [facility] Work Phone: Glucose [Mass/Vol] 102 mg/dL 74-106 [facility] Work Phone: Comment on above: Fasting Glucose resu lt from 100 to 125 mg/dL suggests IMPAIRED HOMEOSTASIS per A.D.A. criteria. Neutrophils (Bld) [#/Vol] 5.9 10*3/uL 2.0-7.7 [facility] Work Phone: Neutrophils/100 WBC (Bld) 52.9 % 47-70 [facility] Work Phone: Potassium [Moles/Vol] 3.1 mmol/L 3.5-5.1 [facility] Work Phone: Sodium [Moles/Vol] 141 mmol/L 136-145 [facility] Work Phone: WBC (Bld) [#/Vol] 11.2 10*3/uL 4.4-11.0 [facility] Work Phone: Blood erythrocytes count (nu mber/volume)on 05-07-2021 RBC (Bld) [#/Vol] 4.98 10*6/uL 4.6-6.2 [facility] Work Phone: Blood hemoglobin measurement (mass/volume)on 05-07-2021 Hemoglobin (Bld) [Mass/Vol] 14.9 g/dL 13.0-16.5 [facility] Work Phone: Blood lymphocytes/100 leukoc yteson 05-07-2021 Lymphocytes/100 WBC (Bld) 37.2 % 19-41 [facility] Work Phone: [phone] Blood monocytes/100 leukocyt eson 05-07-2021 Monocytes/100 WBC (Bld) 8.4 % 0-10 [facility] Work Phone: Blood platelet mean volumeon 05-07-2021 Platelet mean volume (Bld) [Entitic vol] 11.1 fL 6.2-12.0 [facility] Work Phone: Determination of erythrocyte mean corpuscular volume (MCV)on 05-07-2021 MCV (RBC) [Entitic vol] 89.0 fL 80-94 [facility] Work Phone: Hematocrit Auto (Bld) [Volum e fraction]on 05-07-2021 Hematocrit (Bld) [Volume fraction] 44.3 % 40-54 [facility] Work Phone: Laboratory - Chemistry and C hemistry - challengeon 05-07-2021 CO2 [Moles/Vol] 27.0 mmol/L 21.0-32.0 [facility] Work Phone: Magnesium [Mass/Vol] 2.2 mg/dL 1.6-2.6 [facility] Work Phone: Urea nitrogen/Creatinine [Mass ratio] 10.6 mg/mg 10-20 [facility] Work Phone: Laboratory - Hematology and Cell countson 05-07-2021 Erythrocyte distribution width (RBC) [Entitic vol] 38.5 fL 35.1-43.9 [facility] Work Phone: Erythrocyte distribution width (RBC) [Ratio] 11.9 % 11.6-14.6 [facility] Work Phone: Immature granulocytes/100 WBC (Bld) 0.200 % 0.0-0.9 [facility] Work Phone: Comment on above: IG% - Immature Granu locytes (promyelocytes, myelocytes and metamyelocytes) > 1% indicates that a LEFT SHIFT is Present. MCH (RBC) [Entitic mass] 29.9 pg 27.0-32.0 [facility] Work Phone: Nucleated RBC/100 WBC (Bld) [Ratio] 0 % 0-5 [facility] Work Phone: MCHC Auto (RBC) [Mass/Vol]on 05-07-2021 MCHC (RBC) [Mass/Vol] 33.6 g/dL 32-36 [facility] Work Phone: No Panel Informationon 05-07 Estimated Creatinine Clearance Calc 112.11 ml/min [facility] Work Phone: Estimated GFR (MDRD) Amer 112 mL/min >60 [facility] Work Phone: Comment on above: GFR Calc Estimated GFR (MDRD) Non-Af Amer 92 mL/min >60 [facility] Work Phone: Comment on above: Non- GFR Calc Troponin I High Sensitivity < 3 pg/mL 3.0-78.0 [facility] Work Phone: Comment on above: Please Note: New Katelyn t Units and Gender Specific Reference Ranges. For more information see Policy Stat Procedure [place] High Sensitivity Troponin (TNIH) and attachments. Platelets bldon 05-07-2021 Platelets (Bld) [#/Vol] 251 10*3/uL 150-450 [facility] Work Phone: Serum or plasma calcium tata urement (mass/volume)on 05-07-2021 Calcium [Mass/Vol] 9.1 mg/dL 8.5-10.1 [facility] Work Phone: Serum or plasma creatinine m easurement (mass/volume)on 05-07-2021 Creatinine [Mass/Vol] 1.04 mg/dL 0.70-1.30 [facility] Work Phone: Comment on above: The validity of the calculated GFR & GFRAA in patients over 70 years has not been determined. Clinical correlation is essential. Serum or plasma urea nitroge n measurement (mass/volume)on 05-07-2021 Urea nitrogen [Mass/Vol] 11 mg/dL 7-18 [facility] Work Phone: Thin prep Papanicolaou smear with manual screeningon 05-07-2021 Thin prep Papanicolaou smear with manual screening 10 5-15 [facility] Work Phone: Progress Noteson 02-09-2021 [employer] Authentication Interface Message Text 02/09/21 1702 Pain C/O Pain? No Numeric Pain Scale Pain Score 0 Dental Dental issues? No Respiratory Respiratory WNL Cardiovascular Cardiovascular WNL Neurological / Neuromuscular Neurological / Neuromuscular WNL Gastrointestinal Gastrointestinal WNL Genitourinary Genitourinary WNL Integumentary Integumentary WNL Suicide Screen Assessment Wished you were ? No Thoughts of killing/harming yourself? No Fall Risk Assessment (Adult) Age 0 Fall History (past 6 months) 0 Incontinence, Bowel AND Bladder 0 Urgency / Frequency 0 Medications 5 Patient Care Equipment 0 Mobility (Assistance) 0 Mobility (Gait) 0 Mobility (Sensory Deficit) 0 Cognition (Awareness) 0 Cognition (Impulsiveness) 0 Cognition (Limitations) 0 Fall Risk Score 5 Fall Risk Level (Adult) Low Risk Fall Interventions (Adult) Low Risk Interventions (Adult) Basic safety interventions initiated 14 Day Health Assessment Assesment completed? Y Date completed? 02/09/21 Focused Assessment? Focused Assessment? No Suicide Screen Have you ever done, started, or prepared to do anything to end your life? No ..Patient/Inmate Health Assessment Steve Quach, 25 year old male, is admitted to [facility]. This is the first admission within the last 12 months. Patient/inmate is being seen today for 14 Day Health Assessment. Additional clinical concerns today: Inmate is a AND o x 3 able to make needs known. Inmate denies any pain or distress. Denies SI/HI. Inmate had to be redirected multiple times to focus on assessment, Inmate was carrying on and on abt his charges. Inmate has a MH hx medication pending awaiting providers review. Tb given in right forearm. No other concern at this time. All receiving screen information reviewed including communicable diseases, chronic diseases and mental health evaluation. History There is no problem list on file for this patient. No past medical history on file. No past surgical history on file. There is no immunization history on file for this patient. Health Maintenance Topic Date Due Human Papilloma (HPV) Vaccine (1 - Male 2-dose series) Never done COVID-19 Vaccine (1) Never done Hepatitis C Antibody Never done Tdap Booster Never done Influenza Vaccine (1) 11/10/2020 HIV Test Completed Physical findings BP 135/72 Pulse 97 Temp 98.2 ???F (36.8 ???C) Resp 18 Ht 5' 10 (1.778 m) Wt 175 lb (79.4 kg) SpO2 98% BMI 25.11 kg/m??? Physical Exam No flowsheet data found. No results found for this or any previous visit (from the past 89566 hour(s)). Basic Metabolic Panel None No results found for: HBA1C No results found for: HIVLOAD ASSESSMENT/PLAN Last notes from admission, hospital or emergency department discharge summaries, or primary care visits were reviewed, if available at the time of the health assessment. CareEverywhere immunizations, allergies, problem list were reviewed and reconciled with internal records. Receiving screen was reviewed and any interim acute care provided during admission. Clinical concerns: Documentation of health assessment completed for licensed independent provider review Diagnostic and therapeutic orders pended for licensed independent provider review and completion Oral hygiene and preventative oral education provided Patient/inmate questions answered, alfredo education provided: Inmate educated on the [employer] system Admission problem list updated to reflect review and clinical findings Chary Mead RN Normal [employer] [facility] XR Shoulder - left 3 Viewson 07-02-2020 IMPRESSION: Mild degenerative changes of the LEFT shoulder without acute osseous abnormality. Bingo Usher: TYRON Transcribe Date/Time: Jul 02 2020 9:50A Dictated by : LYNN DIOP MD This examination was interpreted and the report reviewed and electronically signed by: LYNN DIOP MD on Jul 02 2020 10:03AM [facility] [email or web address]] DIVISION OF RADIOLOGY * * *Final Report* * * DATE OF EXAM: Jul 02 2020 9:48AM WOX 5252 - XR SHLDR >/=3V AP/JULIA AP/OTHR LT / PROCEDURE REASON: multiple diagnoses * * * * Physician Interpretation * * * * EXAMINATION: XR SHLDR >/=3V AP/JULIA AP/OTHR LT CLINICAL HISTORY: Chronic anterior left shoulder pain with a reinjury over stretching x 3 days ago. Increased limited range of motion. Chronic left shoulder pain Technique: XR SHLDR >/=3V AP/JULIA AP/OTHR LT -- LEFT shoulder with 3 views on 3 images Comparison: 05/19/2018 RESULT: No acute fracture or dislocation. There is mild narrowing of the LEFT glenohumeral joint and mild degenerative changes at the LEFT AC joint. The visualized portions of the LEFT lung are clear. DIVISION OF RADIOLOGY Provider, [facility] - 07/02/2020 * * *Final Report* * * DATE OF EXAM: Jul 02 2020 9:48AM WOX 5252 - XR SHLDR >/=3V AP/JULIA AP/OTHR LT / PROCEDURE REASON: multiple diagnoses * * * * Physician Interpretation * * * * EXAMINATION: XR SHLDR >/=3V AP/JULIA AP/OTHR LT CLINICAL HISTORY: Chronic anterior left shoulder pain with a reinjury over stretching x 3 days ago. Increased limited range of motion. Chronic left shoulder pain Technique: XR SHLDR >/=3V AP/JULIA AP/OTHR LT -- LEFT shoulder with 3 views on 3 images Comparison: 05/19/2018 RESULT: No acute fracture or dislocation. There is mild narrowing of the LEFT glenohumeral joint and mild degenerative changes at the LEFT AC joint. The visualized portions of the LEFT lung are clear. IMPRESSION IMPRESSION: Mild degenerative changes of the LEFT shoulder without acute osseous abnormality. Bingo Usher: PSCB Transcribe Date/Time: Jul 02 2020 9:50A Dictated by : LYNN DIOP MD This examination was interpreted and the report reviewed and electronically signed by: LYNN DIOP MD on Jul 02 2020 10:03AM EST [facility] Radiology Study observation (narrative) [facility] XR Shoulder - left 3 ViewsOr dered By: [facility] Provider on 07-02-2020 [facility] Alcohol, Medicalon 0 Ethanol [Mass/Vol] 34.40 mg/dL High <10.00 [facility] Interpretation and review of laboratory results Abnormal [facility] Ethanol [Mass/Vol] 112.10 mg/dL High <10.00 [facility] Interpretation and review of laboratory results Abnormal [facility] Ethanol [Mass/Vol] 225.70 mg/dL High <10.00 [facility] Interpretation and review of laboratory results Abnormal [facility] COVID-19, Molecularon 2019 Interpretation and review of laboratory results Normal [facility] SARS-CoV-2 Not Detected Not Detected [facility] Comment on above: This test was perfor med under the FDA's Emergency Use Authorization (EUA). Testing was performed using the [employer] ID NOW COVID-19 assay on the ID NOW platform. This test has not been approved for use in asymptomatic patients and its performance in this patient population has not been evaluated. Negative results do not rule out the presence of SARS-CoV-2/COVID-19. Fact sheets for the EUA can be found at the following links: For Healthcare Providers: https://www.MOG.gov/media/204245/download For Patients: https://www.MOG.gov/Brainiac TV/936165/download DRUGS OF ABUSE SCREEN, URINE on 11-04-2019 Amphetamines Ql (U) None Detected None Detected [facility] Comment on above: Urine Amphetamine Cu toff: < 1000 ng/mL = None Detected Barbiturates Screen Ql (U) None Detected None Detected [facility] Comment on above: Urine Barbiturates C utoff: < 200 ng/mL = None Detected Benzodiazepines Ql (U) None Detected None Detected [facility] Comment on above: Urine Benzodiazepine Cutoff: < 200 ng/mL = None Detected Cannabinoids Screen Ql (U) None Detected None Detected [facility] Comment on above: Urine Cannabinoids C utoff: < 50 ng/mL = None Detected Cocaine Ql (U) None Detected None Detected [facility] Comment on above: Urine Cocaine Cutoff : < 300 ng/mL = None Detected Interpretation and review of laboratory results Normal [facility] Methadone Screen Ql (U) None Detected None Detected [facility] Comment on above: Urine Methadone Cuto ff: < 300 ng/mL = None Detected Opiates Screen Ql (U) None Detected None Detected [facility] Comment on above: Urine Opiates Cutoff : < 300 ng/mL = None Detected Oxycodone Ql (U) None Detected None Detected [facility] Comment on above: Urine Oxycodone Cuto ff: < 100 ng/mL = None Detected Screen results shoul d be used for treatment purposes only. [facility] Otheron 11-04-2019 Extra Tube Hold for add-ons. [facility] Comment on above: Auto resulted. Valproic Acid Levelon 2019 Interpretation and review of laboratory results Abnormal [facility] Valproate [Mass/Vol] ug/mL Low [facility] XR KNEE RIGHT 2 VIEWS (STAND LUIS)on 11-04-2019 XR KNEE RIGHT 2 VIEWS (STANDARD) EXAMINATION: XR KNEE RIGHT 2 VIEWS (STANDARD) HISTORY: knee pain Injury/Trauma or Illness?:Illness/Other How long have you had these symptoms (acute/chronic)?:Acute Reason for exam?:right knee pain History of cancer?:u Surgeries, chemotherapy, or radiation?:u COMPARISON: None. TECHNIQUE: AP and lateral radiographs of the right knee were obtained. FINDINGS: Osseous structures are normal in alignment wit is hout fracture or dislocation. Normal mineralization throughout. No significant degenerative changes. There is a small right knee joint effusion. No significant soft tissue swelling. IMPRESSION: Small right knee joint effusion. No acute osseous abnormality. Workstation ID: [id number] Dictated by: DIONNE PETTIT on [facility] Nov 04, 2019 4:37:31 AM EDT Transcribed by: DIONNE PETTIT on [facility] Nov 04, 2019 4:37:31 AM EDT Finalized by: DIONNE PETTIT on [facility] Nov 04, 2019 4:37:31 AM EDT [facility] Comment on above: Order Comment: Injur y/Trauma or Illness?:Illness/Other How long have you had these symptoms (acute/chronic)?:Acute Reason for exam?:right knee pain History of cancer?:u Surgeries, chemotherapy, or radiation?:u Type of Exam?:Initial Additional signs and symptoms?:. XR Knee Right 2 Views (Stand luis)on 11-04-2019 Interface, Rad In [facility] Speechq - 11/04/2019 4:40 AM EDT EXAMINATION: XR KNEE RIGHT 2 VIEWS (STANDARD) HISTORY: knee pain Injury/Trauma or Illness?:Illness/Other How long have you had these symptoms (acute/chronic)?:Acute Reason for exam?:right knee pain History of cancer?:u Surgeries, chemotherapy, or radiation?:u COMPARISON: None. TECHNIQUE: AP and lateral radiographs of the right knee were obtained. FINDINGS: Osseous structures are normal in alignment wit is hout fracture or dislocation. Normal mineralization throughout. No significant degenerative changes. There is a small right knee joint effusion. No significant soft tissue swelling. IMPRESSION: Small right knee joint effusion. No acute osseous abnormality. Workstation ID: [id number] [facility] EXAMINATION: XR KNEE RIGHT 2 VIEWS (STANDARD) HISTORY: knee pain Injury/Trauma or Illness?:Illness/Other How long have you had these symptoms (acute/chronic)?:Acute Reason for exam?:right knee pain History of cancer?:u Surgeries, chemotherapy, or radiation?:u COMPARISON: None. TECHNIQUE: AP and lateral radiographs of the right knee were obtained. FINDINGS: Osseous structures are normal in alignment wit is hout fracture or dislocation. Normal mineralization throughout. No significant degenerative changes. There is a small right knee joint effusion. No significant soft tissue swelling. [facility] Small right knee saúl nt effusion. No acute osseous abnormality. Workstation ID: [id number] [facility] Chlamydia GC by PCRon 2018 Chlamydia by PCR. Not Detected Normal Not Detected [facility] Comment on above: Result Comment: Xper t CT/NG Assay performance has not been evaluated in patients less than 14 years of age. Performed By: #### 3 [id number] #### [place] Misc Micro SubSection , Gonorrhoeae by PCR Not Detected Normal Not Detected [facility] Comment on above: Result Comment: Xper t CT/NG Assay performance has not been evaluated in patients less than 14 years of age. Performed By: #### 3 [id number] #### [place] Misc Micro SubSection , UA Completeon 01-13-2019 Color (U) Straw Normal Yellow [facility] Comment on above: Performed By: #### 8 [id number] #### [place] Urinalysis Automated Subsection [employer] [place] [address] Glucose (U) [Mass/Vol] Negative Normal Negative [facility] Comment on above: Performed By: #### 8 [id number] #### [place] Urinalysis Automated Subsection [employer] [place] [address] Ketones Ql (U) Negative Normal Negative [facility] Comment on above: Performed By: #### 8 [id number] #### [place] Urinalysis Automated Subsection [employer] [place] [address] UA Blood Negative Normal Negative [facility] Comment on above: Performed By: #### 8 [id number] #### [place] Urinalysis Automated Subsection [employer] [place] [address] UA Ascorbic Acid 20 mg/dL High <=19 [facility] Comment on above: Performed By: #### 8 [id number] #### [place] Urinalysis Automated Subsection [employer] [place] [address] UA Clarity Clear Normal Clear [facility] Comment on above: Performed By: #### 8 [id number] #### [place] Urinalysis Automated Subsection [employer] [place] [address] UA Leuk Est Negative Normal Negative [facility] Comment on above: Performed By: #### 8 [id number] #### [place] Urinalysis Automated Subsection [address] [place] [address] UA Nitrite Negative Normal Negative [facility] Comment on above: Performed By: #### 8 [id number] #### [place] Urinalysis Automated Subsection [address] [place] [address] UA pH 6.0 Normal 4.6-8.0 [facility] Comment on above: Performed By: #### 8 [id number] #### [place] Urinalysis Automated Subsection [address] [place] [address] UA Protein Negative Normal Negative [facility] Comment on above: Performed By: #### 8 [id number] #### [place] Urinalysis Automated Subsection [address] [place] [address] UA Spec Grav 1.019 Normal 1.003-1.030 [facility] Comment on above: Performed By: #### 8 [id number] #### [place] Urinalysis Automated Subsection [address] [place] [address] UA Squam Epithelial 0-5 Normal 0-5 [facility] Comment on above: Performed By: #### 8 [id number] #### [place] Urinalysis Automated Subsection [address] [place] [address] UA Urobilinogen Negative Normal [facility] Comment on above: Result Comment: Due to a manufacturing issue, low positive urobilinogen results may be fasely positive. Correlate with urine bilirubin and additional clinical/laboratory findings to assess the risk of hemolytic anemia or liver disease. If clinically indicated, repeat testing with an alternate method is available by contacting the laboratory within 24 hours. Performed By: #### 8 [id number] #### [place] Urinalysis Automated Subsection [address] [place] [address] UA WBC 0-5 Normal 0-5 [facility] Comment on above: Performed By: #### 8 [id number] #### [place] Urinalysis Automated Subsection [address] [place] [address] Urobilinogen Qn (U) Negative Normal Negative [facility] Comment on above: Performed By: #### 8 [id number] #### [place] Urinalysis Automated Subsection [employer] [place] [address] XR FOREARM 2V AP/LAT LTon XR FOREARM 2V AP/LAT LT * * *Final Report* * * DATE OF EXAM: Dec 23 2018 4:11PM LDX 5341 - XR FOREARM 2V AP/LAT LT / PROCEDURE REASON: Forearm pain, traumatic * * * * Physician Interpretation * * * * XR FOREARM 2V AP/LAT LT HISTORY: 23 years old Clinical information: Forearm pain, traumatic pt. hit posterior mid forearm at work one day ago TECHNIQUE: Images: XR FOREARM 2V AP/LAT LT Comparison: None. RESULT/ impression: Soft tissue swelling posteriorly at the mid shaft level Radial head appears intact No fractures or dislocations are seen. Bingo Usher: TYRON Transcribe Date/Time: Dec 23 2018 4:16P Dictated by : HOOD ZEPEDA MD This examination was interpreted and the report reviewed and electronically signed by: HOOD ZEPEDA MD on Dec 23 2018 4:16PM EST Normal [facility] Valproic Acid,Alderson.on 2018 Valproic Acid,Alderson. 27 mg/L Low 50-100 [facility] Comment on above: Performed By: #### V ALPR #### [place] [address] Basic Panelon 05-30-2018 Calcium [Mass/Vol] 9.6 mg/dL Normal 8.5-10.1 [facility] Comment on above: Performed By: #### L P8 #### [place] [address] CO2 Blood 30 mEq/L Normal 21-32 [facility] Comment on above: Performed By: #### L P8 #### [place] [address] Creatinine [Mass/Vol] 0.75 mg/dL Normal 0.67-1.17 [facility] Comment on above: Performed By: #### L P8 #### [place] [address] Glucose [Mass/Vol] 100 mg/dL High 70-99 [facility] Comment on above: Performed By: #### L P8 #### [facility] [address] [place], [place] [address] Urea nitrogen [Mass/Vol] 9 mg/dL Normal 7-25 [facility] Comment on above: Performed By: #### L P8 #### [facility] [address] [place], [place] [address] Urea nitrogen/Creatinine [Mass ratio] 12 mg/mg Normal 10-20 [facility] Comment on above: Performed By: #### L P8 #### [facility] [address] [place] [address] Anion gap [Moles/Vol] 16 mmol/L Normal 8-20 [facility] Comment on above: Performed By: #### L P8 #### [place] [address] Chloride [Moles/Vol] 97 mmol/L Low 98-[address] [facility] Comment on above: Result Comment: Test ing performed on an [place] i-STAT. Performed By: #### L P8 #### [place] [address] Potassium [Moles/Vol] 4.2 mmol/L Normal 3.5-4.9 [facility] Comment on above: Result Comment: Test ing performed on an [place] i-STAT. Performed By: #### L P8 #### [place] [address] Sodium [Moles/Vol] 139 mmol/L Normal 138-146 [facility] Comment on above: Result Comment: Test ing performed on an [place]ley i-STAT. Performed By: #### L P8 #### [place] [address] Hemogram/Diffon 05-30-2018 Abs. Baso 0.01 thou/cmm Normal 0.00-0.08 [facility] Comment on above: Performed By: #### L CBCD #### [place] [address] Abs. Irion 1.03 thou/cmm High 0.20-1.00 [facility] Comment on above: Performed By: #### L CBCD #### [facility] [address] [place], [place] [address] Abs. Neut (ANC) 10.73 thou/cmm High 3.00-5.67 [facility] Comment on above: Performed By: #### L CBCD #### [address] [address] Basophils/100 WBC (Bld) 0.1 % Normal [facility] Comment on above: Performed By: #### L CBCD #### [address] [address] Eosinophils (Bld) [#/Vol] 0.03 thou/cmm Normal 0.00-0.41 [facility] Comment on above: Performed By: #### L CBCD #### [address] [address] Eosinophils/100 WBC (Bld) 0.2 % Normal [facility] Comment on above: Performed By: #### L CBCD #### [address] [address] Erythrocyte distribution width (RBC) [Ratio] 12.0 % Normal 11.5-15.9 [facility] Comment on above: Performed By: #### L CBCD #### [address] [address] Hematocrit (Bld) [Volume fraction] 44.0 % Normal 42.0-52.0 [facility] Comment on above: Performed By: #### L CBCD #### [address] [address] Hemoglobin (Bld) [Mass/Vol] 15.1 g/dL Normal 14.0-18.0 [facility] Comment on above: Performed By: #### L CBCD #### [address] [address] Lymphocytes (Bld) [#/Vol] 1.10 thou/cmm Low 1.50-3.65 [facility] Comment on above: Performed By: #### L CBCD #### [facility] [address] [place], [place] [address] Lymphocytes/100 WBC (Bld) 8.5 % Normal [facility] Comment on above: Performed By: #### L CBCD #### [facility] [address] [place], [place] [address] MCH (RBC) [Entitic mass] 30.9 pg Normal 27.0-31.0 [facility] Comment on above: Performed By: #### L CBCD #### [facility] [address] [place], [place] [address] MCHC (RBC) [Mass/Vol] 34.3 % Normal 32.0-36.0 [facility] Comment on above: Performed By: #### L CBCD #### [address] [address] MCV (RBC) [Entitic vol] 90.0 fL Normal 80.0-94.0 [facility] Comment on above: Performed By: #### L CBCD #### [address] [address] Monocytes/100 WBC (Bld) 8.0 % Normal [facility] Comment on above: Performed By: #### L CBCD #### [facility] [address] [place], [place] [address] Platelet mean volume (Bld) [Entitic vol] 10.1 fL Normal 7.1-10.5 [facility] Comment on above: Performed By: #### L CBCD #### [facility] [address] [place], [place] [address] Platelets (Bld) [#/Vol] 273 thou/cmm Normal 150-400 [facility] Comment on above: Performed By: #### L CBCD #### [address] [address] RBC (Bld) [#/Vol] 4.89 mil/cmm Normal 4.60-6.20 [facility] Comment on above: Performed By: #### L CBCD #### [place] [address] Seg Neutrophil 83.2 % Normal [facility] Comment on above: Performed By: #### L CBCD #### [place] [address] WBC (Bld) [#/Vol] 12.9 thou/cmm High 4.8-10.[address] [facility] Comment on above: Performed By: #### L CBCD #### [place] [address] MDRD eGFRon 05-30-2018 GFR/1.73 sq M predicted among non-blacks MDRD (S/P/Bld) [Vol rate/Area] mL/min/{1.73_m2} Normal >60mL/min/1 .73m2 [facility] Comment on above: Result Comment: If t he patient is , multiply the result by 1.210. Performed By: #### L GFR #### [place] [address] Monoteston 05-30-2018 Monotest Negative Normal Negative [facility] Comment on above: Performed By: #### L MONO #### [place] [address] Rapid Influenza A/Bon 2018 Rapid Influenza A/B See below Normal Negative [facility] Comment on above: Result Comment: Nega tive for influenza A and B. Performed By: #### L RFLU #### [place] [address] Throat Rapid Grp A Strepon 0 05-30-2018 S. pyogenes Ag IA Ql (Unsp spec) see below Normal Negative [facility] Comment on above: Result Comment: Posi tive for group A Streptococcus antigen. Performed By: #### L RAPS #### [place] [address] SHOULDER 3V OR MORE AP/TRUE AP/OTHER LEFTon 05-19-2018 SHOULDER 3V OR MORE AP/TRUE AP/OTHER LEFT Performed at [facility] APPROVED BY: Heramnn Shepherd MD EXAM TITLE: LEFT SHOULDER X-RAY DATE: 05/19/2018 10:04 COMPARISON: None. CLINICAL INDICATION/HISTORY: Left shoulder pain TECHNIQUE: AP, oblique and lateral views of the left shoulder FINDINGS: No fracture or dislocation. No lytic or blastic osseous lesions. Soft tissues are unremarkable. IMPRESSION: No fracture or dislocation. Normal [facility] Vital Signs Date Time Vital Sign Value Performing Clinician Facility 02-17-2024 11:28-0500 Body mass index (BMI) [Ratio] 21.86 kg/m2 Josiah Purdy ELECTROPHYSIOLOGY SCIENTIST.VENTILATION WORKER Work Phone: [facility] 02-17-2024 11:28-0500 Body temperature 97.9 [degF] Josiah Purdy ELECTROPHYSIOLOGY SCIENTIST.VENTILATION WORKER Work Phone: [facility] 02-17-2024 11:28-0500 Body weight 69.1 kg Josiah Purdy APRN.VENTILATION WORKER Work Phone: [facility] 02-17-2024 11:28-0500 Diastolic blood pressure 68 mm[Hg] Josiah Purdy ELECTROPHYSIOLOGY SCIENTIST.VENTILATION WORKER Work Phone: [facility] 02-17-2024 11:28-0500 Heart rate 75 /min Josiah Purdy ELECTROPHYSIOLOGY SCIENTIST.VENTILATION WORKER Work Phone: [facility] 02-17-2024 11:28-0500 Respiratory rate 21 /min Josiah Purdy APRN.VENTILATION WORKER Work Phone: [facility] 02-17-2024 11:28-0500 SaO2% (BldA) [Mass fraction] 99 % Josiah Purdy ELECTROPHYSIOLOGY SCIENTIST.VENTILATION WORKER Work Phone: [facility] 02-17-2024 11:28-0500 Systolic blood pressure 100 mm[Hg] Josiah Purdy ELECTROPHYSIOLOGY SCIENTIST.VENTILATION WORKER Work Phone: [facility] 01-25-2024 10:05-0400 Body mass index (BMI) [Ratio] 21.42 kg/m2 Alberto Castellano PA Work Phone: [facility] 01-25-2024 10:05-0400 Body temperature 97.7 [degF] Alberto FU Work Phone: [facility] 01-25-2024 10:05-0400 Body weight 67.7 kg Krislyn Aberegg PA Work Phone: [facility] 01-25-2024 10:05-0400 Diastolic blood pressure 78 mm[Hg] Krislyn Aberegg PA Work Phone: [facility] 01-25-2024 10:05-0400 Heart rate 86 /min Krislyn Aberegg PA Work Phone: [facility] 01-25-2024 10:05-0400 Respiratory rate 16 /min Krislyn Aberegg PA Work Phone: [facility] 01-25-2024 10:05-0400 SaO2% (BldA) [Mass fraction] 96 % Krislyn Aberegg PA Work Phone: [facility] 01-25-2024 10:05-0400 Systolic blood pressure 110 mm[Hg] Krislyn Aberegg PA Work Phone: [facility] 04-19-2022 19:05-0500 Heart rate 89 /min BRYCE NICKERSON MD [facility] 04-19-2022 19:05-0500 Respiratory rate 21 /min BRYCE NICKERSON MD [facility] 04-19-2022 18:11-0500 Body temperature 97.52 [degF] BRYCE NICKERSON MD [facility] 04-19-2022 18:11-0500 Diastolic Blood Pressure Non-Invasive 89 1 BRYCE NICKERSON MD [facility] 04-19-2022 18:11-0500 Heart rate 93 /min BRYCE NICKERSON MD [facility] 04-19-2022 18:11-0500 Respiratory rate 21 /min BRYCE NICKERSON MD [facility] 04-19-2022 18:11-0500 Systolic Blood Pressure Non-Invasive 129 1 BRYCE NICKERSON MD [facility] 07-17-2021 15:28-0400 Body temperature 97.9 [degF] No Primary Care Physician [facility] Work Phone: 07-17-2021 15:28-0400 Diastolic blood pressure 98 mm[Hg] No Primary Care Physician [facility] Work Phone: 07-17-2021 15:28-0400 Heart rate 84 /min No Primary Care Physician [facility] Work Phone: 07-17-2021 15:28-0400 Respiratory rate 20 /min No Primary Care Physician [facility] Work Phone: 07-17-2021 15:28-0400 SaO2% (BldA) [Mass fraction] 100 % No Primary Care Physician [facility] Work Phone: 07-17-2021 15:28-0400 Systolic blood pressure 134 mm[Hg] No Primary Care Physician [facility] Work Phone: 07-17-2021 05:38-0400 Body weight 69.4 kg No Primary Care Physician [facility] Work Phone: 07-16-2021 06:41-0400 Body temperature 97.8 [degF] No Primary Care Physician [facility] Work Phone: 07-16-2021 06:41-0400 Diastolic blood pressure 76 mm[Hg] No Primary Care Physician [facility] Work Phone: 07-16-2021 06:41-0400 Heart rate 67 /min No Primary Care Physician [facility] Work Phone: 07-16-2021 06:41-0400 Respiratory rate 16 /min No Primary Care Physician [facility] Work Phone: 07-16-2021 06:41-0400 SaO2% (BldA) [Mass fraction] 98 % No Primary Care Physician [facility] Work Phone: 07-16-2021 06:41-0400 Systolic blood pressure 107 mm[Hg] No Primary Care Physician [facility] Work Phone: 07-16-2021 03:02-0400 Body height 177.8 cm No Primary Care Physician [facility] Work Phone: 07-16-2021 03:02-0400 Body mass index (BMI) [Ratio] 22.9 kg/m2 No Primary Care Physician [facility] Work Phone: 07-16-2021 03:02-0400 Body weight 72.57 kg No Primary Care Physician [facility] Work Phone: 06-30-2021 03:22-0400 Diastolic blood pressure 103 mm[Hg] [facility] Work Phone: 06-30-2021 03:22-0400 Heart rate 109 /min [facility] Work Phone: 06-30-2021 03:22-0400 Respiratory rate 16 /min [facility] Work Phone: 06-30-2021 03:22-0400 SaO2% (BldA) [Mass fraction] 96 % [facility] Work Phone: 06-30-2021 03:22-0400 Systolic blood pressure 147 mm[Hg] [facility] Work Phone: 06-30-2021 01:47-0400 Body height 177.8 cm [facility] Work Phone: 06-30-2021 01:47-0400 Body mass index (BMI) [Ratio] 21.1 kg/m2 [facility] Work Phone: 06-30-2021 01:47-0400 Body temperature 98.9 [degF] [facility] Work Phone: 06-30-2021 01:47-0400 Body weight 66.8 kg [facility] Work Phone: 06-29-2021 16:49-0400 Body temperature 97.9 [degF] Bonnie Marcano MD Work Phone: [facility] 06-29-2021 16:49-0400 Body weight 57.6 kg Bonnie Marcano MD Work Phone: [facility] 06-29-2021 16:49-0400 Diastolic blood pressure 81 mm[Hg] Bonnie Marcano MD Work Phone: [facility] 06-29-2021 16:49-0400 Heart rate 111 /min Bonnie Marcano MD Work Phone: [facility] 06-29-2021 16:49-0400 Respiratory rate 18 /min Bonnie Marcano MD Work Phone: [facility] 06-29-2021 16:49-0400 SaO2% (BldA) [Mass fraction] 99 % Bonnie Marcano MD Work Phone: [facility] 06-29-2021 16:49-0400 Systolic blood pressure 132 mm[Hg] Bonnie Marcano MD Work Phone: [facility] 06-28-2021 23:35-0400 Body height 177.8 cm [facility] Work Phone: 06-28-2021 23:35-0400 Body mass index (BMI) [Ratio] 21.3 kg/m2 [facility] Work Phone: 06-28-2021 23:35-0400 Body temperature 97.6 [degF] [facility] Work Phone: 06-28-2021 23:35-0400 Body weight 67.4 kg [facility] Work Phone: 06-28-2021 23:35-0400 Diastolic blood pressure 83 mm[Hg] [facility] Work Phone: 06-28-2021 23:35-0400 Heart rate 111 /min [facility] Work Phone: 06-28-2021 23:35-0400 Respiratory rate 15 /min [facility] Work Phone: 06-28-2021 23:35-0400 SaO2% (BldA) [Mass fraction] 96 % [facility] Work Phone: 06-28-2021 23:35-0400 Systolic blood pressure 131 mm[Hg] [facility] Work Phone: 06-28-2021 21:07-0400 Body height 177.8 cm [facility] Work Phone: 06-28-2021 21:07-0400 Body mass index (BMI) [Ratio] 21.7 kg/m2 [facility] Work Phone: 06-28-2021 21:07-0400 Body temperature 97.6 [degF] [facility] Work Phone: 06-28-2021 21:07-0400 Body weight 68.6 kg [facility] Work Phone: 06-28-2021 21:07-0400 Diastolic blood pressure 87 mm[Hg] [facility] Work Phone: 06-28-2021 21:07-0400 Heart rate 95 /min [facility] Work Phone: 06-28-2021 21:07-0400 Respiratory rate 16 /min [facility] Work Phone: 06-28-2021 21:07-0400 SaO2% (BldA) [Mass fraction] 97 % [facility] Work Phone: 06-28-2021 21:07-0400 Systolic blood pressure 127 mm[Hg] [facility] Work Phone: 06-28-2021 19:34-0400 Respiratory rate 14 /min [facility] Work Phone: 06-28-2021 18:39-0400 Body height 177.8 cm [facility] Work Phone: 06-28-2021 18:39-0400 Body mass index (BMI) [Ratio] 21.7 kg/m2 [facility] Work Phone: 06-28-2021 18:39-0400 Body temperature 98.1 [degF] [facility] Work Phone: 06-28-2021 18:39-0400 Body weight 68.8 kg [facility] Work Phone: 06-28-2021 18:39-0400 Diastolic blood pressure 79 mm[Hg] [facility] Work Phone: 06-28-2021 18:39-0400 Heart rate 87 /min [facility] Work Phone: 06-28-2021 18:39-0400 SaO2% (BldA) [Mass fraction] 94 % [facility] Work Phone: 06-28-2021 18:39-0400 Systolic blood pressure 128 mm[Hg] [facility] Work Phone: 06-28-2021 04:38-0400 Diastolic blood pressure 62 mm[Hg] [facility] Work Phone: 06-28-2021 04:38-0400 Heart rate 72 /min [facility] Work Phone: 06-28-2021 04:38-0400 Respiratory rate 16 /min [facility] Work Phone: 06-28-2021 04:38-0400 SaO2% (BldA) [Mass fraction] 97 % [facility] Work Phone: 06-28-2021 04:38-0400 Systolic blood pressure 99 mm[Hg] [facility] Work Phone: 06-28-2021 03:10-0400 Body mass index (BMI) [Ratio] 21.7 kg/m2 [facility] Work Phone: 06-28-2021 03:10-0400 Body temperature 97.6 [degF] [facility] Work Phone: 06-28-2021 03:10-0400 Body weight 68.9 kg [facility] Work Phone: 05-07-2021 03:07-0500 Diastolic blood pressure 70 mm[Hg] [facility] Work Phone: 05-07-2021 03:07-0500 Heart rate 72 /min [facility] Work Phone: 05-07-2021 03:07-0500 Respiratory rate 18 /min [facility] Work Phone: 05-07-2021 03:07-0500 SaO2% (BldA) [Mass fraction] 95 % [facility] Work Phone: 05-07-2021 03:07-0500 Systolic blood pressure 107 mm[Hg] [facility] Work Phone: 05-07-2021 01:41-0500 Body mass index (BMI) [Ratio] 23.4 kg/m2 [facility] Work Phone: 05-07-2021 01:41-0500 Body temperature 98.1 [degF] [facility] Work Phone: 05-07-2021 01:41-0500 Body weight 74.2 kg [facility] Work Phone: 11-04-2019 16:31-0400 Body Temperature 98.2 [degF] [facility] 11-04-2019 16:31-0400 BP Diastolic 82 mm[Hg] [facility] 11-04-2019 16:31-0400 BP Systolic 117 mm[Hg] [facility] [facility] 11-04-2019 16:31-0400 Pulse (Heart Rate) 72 /min [facility] 11-04-2019 16:31-0400 Pulse Oximetry 97 % Reuben [facility] 11-04-2019 16:31-0400 Respiratory Rate 17 /min Reuben [facility] 11-04-2019 03:17-0400 BMI (Body Mass Index) 33.8 kg/m2 Reuben [facility] 11-04-2019 03:17-0400 Body weight 129.28 kg Reuben [facility] 11-04-2019 03:170400 Height 195.6 cm [facility] Encounters Encounter Date Encounter Type Care Provider Facility Start: 10-30-2024 End: 10-30-[address] Kelli Hurtado MD [facility] Phone[facility] Start: 10-30-2024 End: 10-30-2024 Patient encounter procedure Emanuel Chris OK -[facility] Work Phone: Start: 05-23-2024 ambulatory Health Risk Assessment Facility:[facility] Start: 03-06-2024 End: 03-06-2024 Emergency department patient visit Carlos Eduardo David Facility:[facility] Start: 02-17-2024 End: 02-17-2024 ambulatory Facility:[facility] Start: 02-17-2024 End: 02-17-2024 Patient encounter procedure Josiah Purdy APRN.CNP Work Phone: [facility] Comment on above: Vomiting and diarrhe a (Primary Dx) Start: 01-25-2024 End: 01-25-2024 ambulatory Facility:[facility] Start: 01-25-2024 End: 01-25-2024 Patient encounter procedure Alberto FU Work Phone: [facility] Comment on above: Sore throat (Primary Dx) Start: 11-29-2023 ambulatory Kelli Hurtado Facility: [facility] Start: 09-22-2023 End: 09-22-2023 Emergency department patient visit Ed Physician Provider Facility:[facility] Start: 04-19-2022 End: 04-19-2022 Emergency department patient visit BRYCE NICKERSON MD [facility] Start: 04-10-2022 End: 04-11-2022 ambulatory GEOVANNY CALERO MD Facility:[facility] Start: 07-21-2021 End: 07-21-2021 Patient encounter procedure No Primary Care Physician [facility]Zahraa Carballo Start: 07-17-2021 Non-patient / Non-visit No Ambika pastor Care Physician [facility] Start: 07-17-2021 Non-patient / Non-visit No Ambika pastor Care Physician [facility] Start: 07-16-2021 Non-patient / Non-visit No Ambika pastor Care Physician [facility] Start: 07-16-2021 End: 07-17-2021 Evaluation and management of inpatient No Primary Care Physician [facility]Intensive Care Unit Start: 07-16-2021 Non-patient / Non-visit No Ambika pastor Care Physician [facility] Start: 06-30-2021 End: 06-30-2021 Emergency department patient visit [facility]Emergency Department Start: 06-29-2021 End: 06-29-2021 Emergency department patient visit Bonnie Marcano MD Work Phone: [facility] Comment on above: Chest pain, unspecif ied type (Primary Dx); Cat bite, initial encounter; Tachycardia; Drug intoxication without complication Start: 06-28-2021 End: 06-29-2021 Emergency department patient visit [facility]Emer[facility] Start: 06-28-2021 End: 06-28-2021 Emergency department patient visit [facility] Start: 06-28-2021 End: 06-28-2021 Emergency department patient visit [facility] Start: 06-28-2021 End: 06-28-2021 Emergency department patient visit [facility] Start: 05-07-2021 End: 05-07-2021 Emergency department patient visit [facility] Start: 02-09-2021 End: 02-12-2021 ambulatory UNKNOWN PROVIDER Facility:[facility] Start: 07-02-2020 End: 07-02-2020 Subsequent hospital visit by physician Gonzales [facility] Veronica Work Phone: Radiology Comment on above: Chronic left shoulde r pain [M25.512, G89.29] Start: 11-04-2019 End: 11-04-2019 Emergency department patient visit [facility] Start: 11-04-2019 End: 11-04-2019 Emergency department patient visit Reuben [facility] Work Phone: [facility] Comment on above: Psychosis, unspecifi ed psychosis type (HCC) (Primary Dx); Alcoholic intoxication without complication (HCC) Procedures Date Procedure Procedure Detail Performing Clinician Start: 01-25-2024 STREP A MOLECULAR (POC) Alberto Castellano PA Work Phone: Start: 07-17-2021 Urine culture No Primar y Care Physician Start: 07-16-2021 MRI of brain with contrast No Primary Care Physician Start: 07-16-2021 CT cervical spine wi thout contrast No Primary Care Physician Start: 07-16-2021 CT of head without contrast No Primary Care Physician Start: 07-16-2021 Plain chest X-ray No Pr imary Care Physician Start: 05-07-2021 Plain chest X-ray Start: 11-04-2019 Ethanol [Mass/volume ] in Serum or Plasma Que Silvano Egal Work Phone: Start: 11-04-2019 Ethanol [Mass/volume ] in Serum or Plasma Que Silvano Egal Work Phone: Start: 11-04-2019 Drugs of abuse urine screening test Reuben Mcwilliams Work Phone: Start: 11-04-2019 Radiologic examinati on knee 1/2 views Reuben Mcwilliams Work Phone: Start: 11-04-2019 COVID-19, MOLECULAR Elizabeth nd Mcwilliams Work Phone: Start: 11-04-2019 Ethanol [Mass/volume ] in Serum or Plasma Reuben Mcwilliams Work Phone: Start: 11-04-2019 LAVENDER TOP Reuben Meehan l Work Phone: Start: 11-04-2019 LIGHT BLUE TOP Reuben Pa tel Work Phone: Start: 11-04-2019 LIGHT GREEN TOP Reuben P atel Work Phone: Start: 11-04-2019 RAINBOW DRAW Reuben Zoran l Work Phone: Start: 11-04-2019 Valproate [Mass/volu me] in Serum or Plasma Reuben Brooks Work Phone: Entire left wrist (b sb structure) BRYCE NICKERSON MD Plan of Treatment Date Care Activity Detail Author Start: 12-12-2023 Covid-19 Vaccine () Covid-19 Vaccine () [facility] Start: 12-12-2023 Influenza vaccination Influenza Vacc ine (#1) [facility] Start: 07-17-2021 Bacteria identified in Urine by Culture Urine Culture [facility] Work Phone: Start: 07-16-2021 MRI of brain with contrast Brain W/WO Contrast [facility] Work Phone: Start: 06-30-2021 Ecg routine ecg w/le ast 12 lds trcg only w/o i&r ELECTROCARDIOGRAM TRACING [facility] Work Phone: Start: 06-28-2021 Emergency department visit limited/minor prob EMERGENCY DEPT VISIT [facility] Work Phone: Start: 06-28-2021 Emergency department visit low/moder severity EMERGENCY DEPT VISIT [facility] Work Phone: Start: 12-11-2020 FLU (#1) FLU (#1) [facility] Start: 12-12-2019 Influenza vaccinatio n given Sequential Influenza Vaccine (#1) [facility] Start: 11-25-2013 Anxiety Screening Anxiety Screening [facility] Start: 11-25-2013 [facility] Start: 11-25-2013 Hepatitis C antibody , confirmatory test Hepatitis C Screening [facility] Start: 11-25-2013 Hepatitis C screening Hepatitis C Sc anish [facility] Start: 11-25-2013 HIV screening HIV Screening [facility] Start: 2011 MenB (1 of 2 - MenB 2-Dose Series) MenB (1 of 2 - MenB 2-Dose Series) [facility] Start: 11-25-2010 HIV screening HIV Screening [facility] Start: 11-25-2006 HPV (1 - Male 2-dose series) HPV (1 - Male 2-dose series) [facility] Start: 11-25-2006 Urine microalbumin profile DTaP,Tdap,Td Vaccine (6 - Tdap) [facility] Start: 11-25-2006 Vaccination for bridgette n papillomavirus HPV Vaccines (1 - Male 2-dose series) [facility] Start: 11-25-2002 Tetanus Diphtheria a nd Pertussis Vaccines (1 - Tdap) Tetanus Diphtheria and Pertussis Vaccines (1 - Tdap) [facility] Start: 11-25-2001 Pneumococcal vaccination Pneumococcal Vaccine (1 of 2 - PCV) [facility] Start: 11-25-2000 COVID-19 (1) COVID-19 (1) [facility] Start: 11-25-1998 History and physical examination, annual for health maintenance Wellness Visit [facility] Start: 11-25-1996 MMR (1 of 1 - Standa rd series) MMR (1 of 1 - Standard series) [facility] Start: 11-25-1996 Varicella (1 of 2 - 2-dose childhood series) Varicella (1 of 2 - 2-dose childhood series) [facility] Start: 1995 Tetanus vaccination Tetanus: Every 1 0yrs [facility] End: 06-29-2021 Ecg routine ecg w/least 12 lds i&r only [facility] Work Phone: Comment on above: One Time for 1 Occur rences starting 06/29/2021 until 06/29/2021 Patient Education [facility] Work Phone: Patient referral [facility] Work Phone: Immunizations Immunization Date Immunization Notes Care Provider Rodney hays 02-09-2021 tuberculin skin test ; purified protein derivative solution, intradermal Josiah Purdy APRN.CNP Work Phone: [facility] 09-01-2016 tetanus toxoid, redu sadia diphtheria toxoid, and acellular pertussis vaccine, adsorbed BRYCE NICKERSON MD [facility] 12-29-2000 diphtheria, tetanus toxoids and acellular pertussis vaccine, unspecified formulation Josiah Gurwinder ELECTROPHYSIOLOGY SCIENTIST.VENTILATION WORKER Work Phone: [facility] 12-29-2000 measles, mumps and rubella virus vaccine Josiah Gurwinder ELECTROPHYSIOLOGY SCIENTIST.VENTILATION WORKER Work Phone: [facility] 12-29-2000 poliovirus vaccine, inactivated Josiah Gurwinder ELECTROPHYSIOLOGY SCIENTIST.VENTILATION WORKER Work Phone: [facility] 04-10-1997 diphtheria, tetanus toxoids and acellular pertussis vaccine, unspecified formulation Josiah Gurwinder ELECTROPHYSIOLOGY SCIENTIST.VENTILATION WORKER Work Phone: [facility] 04-10-1997 haemophilus influenz ae type b vaccine, PRP-T conjugate Josiah Gurwinder ELECTROPHYSIOLOGY SCIENTIST.VENTILATION WORKER Work Phone: [facility] 01-30-1997 measles, mumps and rubella virus vaccine Josiah Gurwinder ELECTROPHYSIOLOGY SCIENTIST.VENTILATION WORKER Work Phone: [facility] 07-18-1996 diphtheria, tetanus toxoids and acellular pertussis vaccine, unspecified formulation Josiah Gurwinder ELECTROPHYSIOLOGY SCIENTIST.VENTILATION WORKER Work Phone: [facility] 07-18-1996 haemophilus influenz ae type b vaccine, conjugate unspecified formulation Josiah Gurwinder ELECTROPHYSIOLOGY SCIENTIST.VENTILATION WORKER Work Phone: [facility] 07-18-1996 hepatitis B vaccine, pediatric or pediatric/adolescent dosage Josiah Gurwinder ELECTROPHYSIOLOGY SCIENTIST.VENTILATION WORKER Work Phone: [facility] 07-18-1996 trivalent poliovirus vaccine, live, oral Josiah Gurwinder ELECTROPHYSIOLOGY SCIENTIST.VENTILATION WORKER Work Phone: [facility] 04-21-1996 diphtheria, tetanus toxoids and acellular pertussis vaccine, unspecified formulation Josiah Gurwinder ELECTROPHYSIOLOGY SCIENTIST.VENTILATION WORKER Work Phone: [facility] 04-21-1996 haemophilus influenz ae type b vaccine, conjugate unspecified formulation Josiah Gurwinder ELECTROPHYSIOLOGY SCIENTIST.VENTILATION WORKER Work Phone: [facility] 04-21-1996 trivalent poliovirus vaccine, live, oral Josiah Purdy ELECTROPHYSIOLOGY SCIENTIST.VENTILATION WORKER Work Phone: [facility] 02-01-1996 DTP-Haemophilus influenzae type b conjugate vaccine Josiah Purdy ELECTROPHYSIOLOGY SCIENTIST.VENTILATION WORKER Work Phone: [facility] 02-01-1996 hepatitis B vaccine, pediatric or pediatric/adolescent dosage Josiah Gurwinder ELECTROPHYSIOLOGY SCIENTIST.VENTILATION WORKER Work Phone: [facility] 02-01-1996 trivalent poliovirus vaccine, live, oral Josiah Purdy ELECTROPHYSIOLOGY SCIENTIST.VENTILATION WORKER Work Phone: [facility] 1995 hepatitis B vaccine, pediatric or pediatric/adolescent dosage Josiah Gurwinder ELECTROPHYSIOLOGY SCIENTIST.VENTILATION WORKER Work Phone: [facility] Payers Date Payer Category Payer Self-pay [id number] 2022 Unknown [id number] 2021 Department of [facility] [id number] 2019 Medicaid [id number] 2019 Medicaid MOLINA MANAGED M EZEQUIEL [place] MEDICAID OF [place] xxxxxxxxxxxx 2019-Present [id number] 2019 Medicaid [id number] 1995 Unknown [id number] 1995 Unknown [id number] 1949 Unknown [id number] Unknown [id number] Unknown [id number] Unknown [id number] Unknown [id number] Unknown [id number] Social History Date Type Detail Facility Start: 11-04-2019 Tobacco smoking stat us NHIS Never smoker [facility] Start: 11-04-2019 Alcohol intake Lifetime non-d aylin (finding) [facility] Start: 11-04-2019 History SDOH Alcohol Frequency 1 [facility] Start: 1995 Sex Assigned At Not on file O [facility] Start: 06-02-2020 End: 06-29-2021 Exposure to SARS-CoV-2 (event) Not sure [facility] Start: 06-28-2021 End: 07-16-2021 Tobacco smoking status SDIS Unknown if ever smoked [facility] Work Phone: Start: 1995 Sex Assigned At Male W [facility] Start: 03-02-2019 Tobacco smoking status Light t obacco smoker (finding) [facility] Sex Assigned At Sex [facility] Start: 09-30-2018 End: 03-06-2024 Tobacco smoking status NHIS Smokes tobacco daily [facility] History of tobacco use Cigarette Smoker [facility] Start: 09-30-2018 End: 01-25-2024 Tobacco use and exposure Smokeless tobacco non-user [facility] Start: 07-02-2020 End: 02-17-2024 Alcoholic beverage intake Current non-drinker of alcohol (finding) [facility] Start: 03-20-2020 End: 07-02-2020 History of Social function [facility] Start: 03-20-2020 End: 07-02-2020 Tobacco use panel [facility] PHQ2 Score 0 [facility] Start: 05-19-2018 End: 01-25-2024 Tobacco Comment vape [facility] Functional Status Date Assessment Result Facility 04-19-2022 Functional Status Independent [facility] 04-19-2022 Functional Status Standard Safet y ID band on, Call device within reach, Bed in low position, Wheels locked, Visitor at bedside, Safety level maintained [facility] 07-17-2021 Functional status Ambulates [facility] Work Phone: Mental Status Date Assessment Result Facility 04-19-2022 Mental Status Orientation Oriented x 4 [facility] 04-19-2022 Mental Status [facility] 07-17-2021 Cognitive function Voice/Name [facility] Work Phone: 07-16-2021 Cognitive function Voice/Name [facility] Work Phone: 06-30-2021 Cognitive function Voice/Name [facility] Work Phone: 06-28-2021 Cognitive function Level Of Cons ciousness Awake;Alert [facility] Work Phone: 06-28-2021 Cognitive function Level Of Cons ciousness Awake;Alert;Follows Commands [facility] Work Phone: 06-28-2021 Cognitive function Level Of Cons ciousness Awake;Alert;Appropriate [facility] Work Phone: 06-28-2021 Cognitive function Voice/Name [facility] Work Phone: 05-07-2021 Cognitive function Level Of Cons ciousness Awake;Alert [facility] Work Phone: Clinical Notes 07-02-2020 to 02-17-2024 Josiah Purdy APRN.VENTILATION WORKER - 02/17/2024 1:00 PM Alberto Jackson PA - 01/25/2024 10:11 AM Shayy Low RN - 06/29/2021 5:19 PM Shayy Low RN - 06/29/2021 5:19 PM EDT Note Date & Type Note Facility 02-17-2024 Note HNO ID: [id number] Author: JOSIAH PURDY APRN.VENTILATION WORKER Service: ? Author Type: Nurse Practitioner Type: Progress Notes Filed: 02/17/2024 13:33 Note Text: Subjective HPI HPI Steve Quach is a 28 year old male who presents today for CC of nausea, vomiting, diarrhea. This started 1 day ago. Has tried nothing for relief. Symptoms are worsened by nothing. Denies fever and blood in stool/emesis, abd pain. .Patient presents with: Nausea AND Vomiting: Diarrhea x 1 day PAST MEDICAL HISTORY Diagnosis Date Bipolar 1 disorder (HCC) Psychiatric disorder Schizoaffective disorder (HCC) PAST SURGICAL HISTORY Procedure Laterality Date ORTHOPEDICS SURGERY HX ALLERGIES Penicillins MEDICATIONS buPROPion XL (WELLBUTRIN XL) 150 mg 24 hr tablet Take 1 tablet by mouth once daily. (Patient not taking: Reported on 06/30/2021 ) busPIRone (BUSPAR) 10 mg tablet Take 1 tablet by mouth twice daily. (Patient not taking: Reported on 06/30/2021 ) Promethazine-DM (PHENERGAN-DM) 6.25-15 mg/5 mL syrup Take 5 mL by mouth four times daily as needed. (Patient not taking: Reported on 01/25/2024) albuterol HFA (PROAIR HFA) 90 mcg/actuation inhaler Inhale 2 Puffs as instructed every 4 hours as needed. (Patient not taking: Reported on 01/25/2024) divalproex DR (DEPAKOTE) 250 mg EC tablet Take 250 mg by mouth once daily. In am (Patient not taking: Reported on 01/25/2024) QUEtiapine (SEROQUEL) 50 mg tablet Take 50 mg by mouth once daily. (Patient not taking: Reported on 01/25/2024) QUEtiapine (SEROQUEL) 200 mg tablet Take 200 mg by mouth daily at bedtime. (Patient not taking: Reported on 01/25/2024) divalproex DR (DEPAKOTE) 500 mg EC tablet Take 1,000 mg by mouth daily at bedtime. (Patient not taking: Reported on 01/25/2024) No family history on file. Social History Tobacco Use Smoking status: Every Day Current packs/day: 1.00 Types: Cigarettes Smokeless tobacco: Never Tobacco comments: vape Vaping Use Vaping status: current everyday user Substances: Nicotine, No THC (stopped d/t anxiety), Flavoring Devices: Pre-filled or refillable cartridge Substance Use Topics Alcohol use: No Drug use: No ROS Objective Blood pressure 100/68, pulse 75, temperature 36.6 ?C (97.9 ?F), resp. rate 21, weight 69.1 kg (152 lb 5.4 oz), SpO2 99%. Physical Exam Constitutional: General: He is not in acute distress. Appearance: Normal appearance. He is not toxic-appearing. Cardiovascular: Rate and Rhythm: Normal rate and regular rhythm. Heart sounds: Normal heart sounds. Pulmonary: Effort: Pulmonary effort is normal. Breath sounds: Normal breath sounds. Abdominal: General: Bowel sounds are normal. Palpations: Abdomen is soft. Tenderness: There is no abdominal tenderness. Skin: General: Skin is warm and dry. ASSESSMENT/PLAN: 1. Vomiting and diarrhea - ICD9: 787.03, 787.91, ICD10: R11.10, R19.7 -Discussed gentle rehydration -BRAT Diet (Bananas, Rice, Apple Sauce, Parkside) -If no better in 7-10 days follow up back in clinic or with primary care provider -Follow up in the ER with signs of dehydration, increasing abdominal pain, high fever, or blood in vomit or stool. Josiah Purdy APRN.[facility] 02-17-2024 History of Present illness Narrative Subjective HPI HPI Steve Quach is a 28 year old male who presents today for CC of nausea, vomiting, diarrhea. This started 1 day ago. Has tried nothing for relief. Symptoms are worsened by nothing. Denies fever and blood in stool/emesis, abd pain. .Patient presents with: Nausea & Vomiting: Diarrhea x 1 day PAST MEDICAL HISTORY Diagnosis Date Bipolar 1 disorder (HCC) Psychiatric disorder Schizoaffective disorder (HCC) PAST SURGICAL HISTORY Procedure Laterality Date ORTHOPEDICS SURGERY HX ALLERGIES Penicillins MEDICATIONS buPROPion XL (WELLBUTRIN XL) 150 mg 24 hr tablet Take 1 tablet by mouth once daily. (Patient not taking: Reported on 06/30/2021 ) busPIRone (BUSPAR) 10 mg tablet Take 1 tablet by mouth twice daily. (Patient not taking: Reported on 06/30/2021 ) Promethazine-DM (PHENERGAN-DM) 6.25-15 mg/5 mL syrup Take 5 mL by mouth four times daily as needed. (Patient not taking: Reported on 01/25/2024) albuterol HFA (PROAIR HFA) 90 mcg/actuation inhaler Inhale 2 Puffs as instructed every 4 hours as needed. (Patient not taking: Reported on 01/25/2024) divalproex DR (DEPAKOTE) 250 mg EC tablet Take 250 mg by mouth once daily. In am (Patient not taking: Reported on 01/25/2024) QUEtiapine (SEROQUEL) 50 mg tablet Take 50 mg by mouth once daily. (Patient not taking: Reported on 01/25/2024) QUEtiapine (SEROQUEL) 200 mg tablet Take 200 mg by mouth daily at bedtime. (Patient not taking: Reported on 01/25/2024) divalproex DR (DEPAKOTE) 500 mg EC tablet Take 1,000 mg by mouth daily at bedtime. (Patient not taking: Reported on 01/25/2024) No family history on file. Social History Tobacco Use Smoking status: Every Day Current packs/day: 1.00 Types: Cigarettes Smokeless tobacco: Never Tobacco comments: vape Vaping Use Vaping status: current everyday user Substances: Nicotine, No THC (stopped d/t anxiety), Flavoring Devices: Pre-filled or refillable cartridge Substance Use Topics Alcohol use: No Drug use: No ROS Objective Blood pressure 100/68, pulse 75, temperature 36.6 C (97.9 F), resp. rate 21, weight 69.1 kg (152 lb 5.4 oz), SpO2 99%. Physical Exam Constitutional: General: He is not in acute distress. Appearance: Normal appearance. He is not toxic-appearing. Cardiovascular: Rate and Rhythm: Normal rate and regular rhythm. Heart sounds: Normal heart sounds. Pulmonary: Effort: Pulmonary effort is normal. Breath sounds: Normal breath sounds. Abdominal: General: Bowel sounds are normal. Palpations: Abdomen is soft. Tenderness: There is no abdominal tenderness. Skin: General: Skin is warm and dry. ASSESSMENT/PLAN: 1. Vomiting and diarrhea - ICD9: 787.03, 787.91, ICD10: R11.10, R19.7 -Discussed gentle rehydration -BRAT Diet (Bananas, Rice, Apple Sauce, Parkside) -If no better in 7-10 days follow up back in clinic or with primary care provider -Follow up in the ER with signs of dehydration, increasing abdominal pain, high fever, or blood in vomit or stool. Josiah Purdy APRN.VENTILATION WORKER documented in this encounter [facility] 01-25-2024 Note HNO ID: [id number] Author: ALBERTO CASTELLANO PA Service: ? Author Type: Physician Leadite Man Type: Progress Notes Filed: 01/25/2024 10:22 Note Text: This note was created using [employer]. Subjective Steve Quach is a 28 year old male. HPI 28-year-old male presents for sore throat, vomiting starting this morning. Patient states he woke up today and had scratchy throat. He has had a little bit of a cough. He had 1 episode of vomiting this morning. He states he did eat brisket after work last night, unsure if this caused the vomiting. He has no abdominal pain or diarrhea. Was able to eat and drink after the vomiting. He denies any fevers. No sick contacts he is aware of. No other complaint. PAST MEDICAL HISTORY Diagnosis Date Bipolar 1 disorder (HCC) Psychiatric disorder Schizoaffective disorder (HCC) PAST SURGICAL HISTORY Procedure Laterality Date ORTHOPEDICS SURGERY HX ALLERGIES Penicillins MEDICATIONS buPROPion XL (WELLBUTRIN XL) 150 mg 24 hr tablet Take 1 tablet by mouth once daily. (Patient not taking: Reported on 06/30/2021 ) busPIRone (BUSPAR) 10 mg tablet Take 1 tablet by mouth twice daily. (Patient not taking: Reported on 06/30/2021 ) Promethazine-DM (PHENERGAN-DM) 6.25-15 mg/5 mL syrup Take 5 mL by mouth four times daily as needed. (Patient not taking: Reported on 01/25/2024) albuterol HFA (PROAIR HFA) 90 mcg/actuation inhaler Inhale 2 Puffs as instructed every 4 hours as needed. (Patient not taking: Reported on 01/25/2024) divalproex DR (DEPAKOTE) 250 mg EC tablet Take 250 mg by mouth once daily. In am (Patient not taking: Reported on 01/25/2024) QUEtiapine (SEROQUEL) 50 mg tablet Take 50 mg by mouth once daily. (Patient not taking: Reported on 01/25/2024) QUEtiapine (SEROQUEL) 200 mg tablet Take 200 mg by mouth daily at bedtime. (Patient not taking: Reported on 01/25/2024) divalproex DR (DEPAKOTE) 500 mg EC tablet Take 1,000 mg by mouth daily at bedtime. (Patient not taking: Reported on 01/25/2024) No family history on file. Social History Tobacco Use Smoking status: Every Day Current packs/day: 1.00 Types: Cigarettes Smokeless tobacco: Never Tobacco comments: vape Vaping Use Vaping status: current everyday user Substances: Nicotine, No THC (stopped d/t anxiety), Flavoring Devices: Pre-filled or refillable cartridge Substance Use Topics Alcohol use: No Drug use: No Review of Systems Constitutional: Negative for chills and fever. HENT: Positive for sore throat. Negative for congestion. Respiratory: Negative for cough and shortness of breath. Gastrointestinal: Positive for nausea and vomiting. Negative for diarrhea. Objective BP 110/78 Pulse 86 Temp 36.5 ?C (97.7 ?F) (Tympanic) Resp 16 Wt 67.7 kg (149 lb 4 oz) SpO2 96% BMI 21.42 kg/m? Physical Exam Vitals and nursing note reviewed. Constitutional: General: He is not in acute distress. Appearance: Normal appearance. He is not toxic-appearing. HENT: Right Ear: Tympanic membrane and ear canal normal. Left Ear: Tympanic membrane and ear canal normal. Nose: Nose normal. Mouth/Throat: Mouth: Mucous membranes are moist. Pharynx: Uvula midline. Posterior oropharyngeal erythema present. Tonsils: No tonsillar exudate or tonsillar abscesses. 2+ on the right. 2+ on the left. Eyes: Conjunctiva/sclera: Conjunctivae normal. Cardiovascular: Rate and Rhythm: Normal rate and regular rhythm. Pulmonary: Effort: Pulmonary effort is normal. Breath sounds: Normal breath sounds. Abdominal: General: Abdomen is flat. Palpations: Abdomen is soft. Tenderness: There is no abdominal tenderness. There is no guarding or rebound. Skin: General: Skin is warm and dry. Neurological: Mental Status: He is alert. Assessment and Plan ASSESSMENT/PLAN: 1. Sore throat - ICD9: 462, ICD10: J02.9 - suspect viral - Group A strep molecular testing negative - Discussed supportive care treatment with fluids, rest and analgesia. - The patient may also use warm salt water gargles, throat lozenges and/or OTC throat spray as needed. - STREP A MOLECULAR (POC) - declines covid swab Diagnosis and treatment plan were discussed and questions were answered to the patient's satisfaction. Pt acknowledged understanding of concepts and follow up plan. Specific signs and symptoms that would indicate the need for higher level of care were discussed in detail warranting prompt ER evaluation. NICKIE Navas [facility] 01-25-2024 History of Present illness Narrative This note was created using [employer]. Subjective Steve Quach is a 28 year old male. HPI 28-year-old male presents for sore throat, vomiting starting this morning. Patient states he woke up today and had scratchy throat. He has had a little bit of a cough. He had 1 episode of vomiting this morning. He states he did eat brisket after work last night, unsure if this caused the vomiting. He has no abdominal pain or diarrhea. Was able to eat and drink after the vomiting. He denies any fevers. No sick contacts he is aware of. No other complaint. PAST MEDICAL HISTORY Diagnosis Date Bipolar 1 disorder (HCC) Psychiatric disorder Schizoaffective disorder (HCC) PAST SURGICAL HISTORY Procedure Laterality Date ORTHOPEDICS SURGERY HX ALLERGIES Penicillins MEDICATIONS buPROPion XL (WELLBUTRIN XL) 150 mg 24 hr tablet Take 1 tablet by mouth once daily. (Patient not taking: Reported on 06/30/2021 ) busPIRone (BUSPAR) 10 mg tablet Take 1 tablet by mouth twice daily. (Patient not taking: Reported on 06/30/2021 ) Promethazine-DM (PHENERGAN-DM) 6.25-15 mg/5 mL syrup Take 5 mL by mouth four times daily as needed. (Patient not taking: Reported on 01/25/2024) albuterol HFA (PROAIR HFA) 90 mcg/actuation inhaler Inhale 2 Puffs as instructed every 4 hours as needed. (Patient not taking: Reported on 01/25/2024) divalproex DR (DEPAKOTE) 250 mg EC tablet Take 250 mg by mouth once daily. In am (Patient not taking: Reported on 01/25/2024) QUEtiapine (SEROQUEL) 50 mg tablet Take 50 mg by mouth once daily. (Patient not taking: Reported on 01/25/2024) QUEtiapine (SEROQUEL) 200 mg tablet Take 200 mg by mouth daily at bedtime. (Patient not taking: Reported on 01/25/2024) divalproex DR (DEPAKOTE) 500 mg EC tablet Take 1,000 mg by mouth daily at bedtime. (Patient not taking: Reported on 01/25/2024) No family history on file. Social History Tobacco Use Smoking status: Every Day Current packs/day: 1.00 Types: Cigarettes Smokeless tobacco: Never Tobacco comments: vape Vaping Use Vaping status: current everyday user Substances: Nicotine, No THC (stopped d/t anxiety), Flavoring Devices: Pre-filled or refillable cartridge Substance Use Topics Alcohol use: No Drug use: No Review of Systems Constitutional: Negative for chills and fever. HENT: Positive for sore throat. Negative for congestion. Respiratory: Negative for cough and shortness of breath. Gastrointestinal: Positive for nausea and vomiting. Negative for diarrhea. Objective BP 110/78 Pulse 86 Temp 36.5 C (97.7 F) (Tympanic) Resp 16 Wt 67.7 kg (149 lb 4 oz) SpO2 96% BMI 21.42 kg/m Physical Exam Vitals and nursing note reviewed. Constitutional: General: He is not in acute distress. Appearance: Normal appearance. He is not toxic-appearing. HENT: Right Ear: Tympanic membrane and ear canal normal. Left Ear: Tympanic membrane and ear canal normal. Nose: Nose normal. Mouth/Throat: Mouth: Mucous membranes are moist. Pharynx: Uvula midline. Posterior oropharyngeal erythema present. Tonsils: No tonsillar exudate or tonsillar abscesses. 2+ on the right. 2+ on the left. Eyes: Conjunctiva/sclera: Conjunctivae normal. Cardiovascular: Rate and Rhythm: Normal rate and regular rhythm. Pulmonary: Effort: Pulmonary effort is normal. Breath sounds: Normal breath sounds. Abdominal: General: Abdomen is flat. Palpations: Abdomen is soft. Tenderness: There is no abdominal tenderness. There is no guarding or rebound. Skin: General: Skin is warm and dry. Neurological: Mental Status: He is alert. Assessment and Plan ASSESSMENT/PLAN: 1. Sore throat - ICD9: 462, ICD10: J02.9 - suspect viral - Group A strep molecular testing negative - Discussed supportive care treatment with fluids, rest and analgesia. - The patient may also use warm salt water gargles, throat lozenges and/or OTC throat spray as needed. - STREP A MOLECULAR (POC) - declines covid swab Diagnosis and treatment plan were discussed and questions were answered to the patient's satisfaction. Pt acknowledged understanding of concepts and follow up plan. Specific signs and symptoms that would indicate the need for higher level of care were discussed in detail warranting prompt ER evaluation. NICKIE Navas documented in this encounter [facility] 04-19-2022 Hospital Discharge instructions Patient Education 04/19/2022 19:03:54 Chest Wall Pain, Costochondritis Chest Wall Pain: Costochondritis The chest pain that you have had today is caused by costochondritis. This condition is caused by an inflammation of the cartilage joining your ribs to your breastbone. It is not caused by heart or lung problems. Your healthcare team has made sure that the chest pain you feel is not from a life threatening cause of chest pain such as heart attack, collapsed lung, blood clot in the lung, tear in the aorta, or esophageal rupture. The inflammation may have been brought on by a blow to the chest, lifting heavy objects, intense exercise, or an illness that made you cough and sneeze a lot. It often occurs during times of emotional stress. It can be painful, but it is not dangerous. It usually goes away in 1 to 2 weeks. But it may happen again. Rarely, a more serious condition may cause symptoms similar to costochondritis. That s why it s important to watch for the warning signs listed below. Home care Follow these guidelines when caring for yourself at home: If you feel that emotional stress is a cause of your condition, try to figure out the sources of that stress. It may not be obvious. Learn ways to deal with the stress in your life. This can include regular exercise, muscle relaxation, meditation, or simply taking time out for yourself. You may use acetaminophen, ibuprofen, or naproxen to control pain, unless another pain medicine was prescribed. If you have liver or kidney disease or ever had a stomach ulcer, talk with your healthcare provider before using these medicines. You can also help ease pain by using a hot, wet compress or heating pad. Use this with or without a medicated skin cream that helps relieves pain. Do stretching exercise as advised by your provider. Take any prescribed medicines as directed. Follow-up care Follow up with your healthcare provider, or as advised, if you do not start to get better in the next 2 days. When to seek medical advice Call your healthcare provider right away if any of these occur: A change in the type of pain. Call if it feels different, becomes more serious, lasts longer, or spreads into your shoulder, arm, neck, jaw, or back. Shortness of breath or pain gets worse when you breathe Weakness, dizziness, or fainting Cough with dark-colored sputum (phlegm) or blood Abdominal pain Dark red or black stools Fever of 100.4 F (38 C) or higher, or as directed by your healthcare provider [id number] [employer]. [address] [place] [address]. All rights reserved. This information is not intended as a substitute for professional medical care. Always follow your healthcare professional's instructions. Follow Up Care 04/19/2022 17:57:46 With:Call Physician Referral Address:Unknown When:2-4 days [facility] 04-19-2022 Note ORIGINAL EXAMINATION: ONE XRAY VIEW OF THE CHEST 04/19/2022 6:41 pm COMPARISON: Chest x-ray 04/10/2022 HISTORY: ORDERING SYSTEM PROVIDED HISTORY: Reason for Exam: chest pain FINDINGS: The cardiomediastinal silhouette is within normal limits. No consolidation, pleural effusion, pneumothorax or vascular congestion. No acute osseous abnormality. IMPRESSION: No acute process. I have personally reviewed the images of this examination and agree with the resident's findings and interpretation. Interpreted by: Ladarius Salgado MD Preliminary Report By: Poncho Coronado Electronically signed By Ladarius Salgado MD Dictated Date: 04/19/2022 7:19:18 PM Prelim Date: 04/19/2022 7:20:39 PM Sign Date: 04/19/2022 7:27:22 PM [facility] Note Discharge Instructions Thank you for allowing [facility] to assist you with your healthcare needs. The following is important discharge information regarding your hospital visit. Diagnosis from Today's Visit Chest pain What to Do Next Instructions from Your Care Team No qualifying data available. Post Acute Orders No qualifying data available. You Need to Schedule the Following Appointments Follow Up with Call Physician Referral When Within 2-4 days Allergies nonsteroidal anti-inflammatory agent penicillin Medications Please ask your primary doctor or pharmacist before taking any other medication not listed, including over the counter drugs, herbal medications, vitamins and or supplements as they may interact with your home medications. What How Much When Why Instructions Last Dose New lidocaine topical (Lidoderm 5% topical patch) 1 patch(es) Transdermal Every day Duration: 10 Days Printed Prescription Unchanged doxycycline 100 Milligram by mouth Two (2) times a day Sinusitis Chest wall pain Duration: 10 Days Unchanged omeprazole (omeprazole 20 mg oral delayed release capsule) Unchanged QUEtiapine (SEROquel) by mouth Please take this list to your next doctor s visit. Bring all medications you take, including over the counter medications, herbals and other supplements with you to your doctor s visit. Patients and families are reminded to discard old lists and to update any records with all medication providers or retail pharmacies. Education Materials Chest Wall Pain: Costochondritis The chest pain that you have had today is caused by costochondritis. This condition is caused by an inflammation of the cartilage joining your ribs to your breastbone. It is not caused by heart or lung problems. Your healthcare team has made sure that the chest pain you feel is not from a life threatening cause of chest pain such as heart attack, collapsed lung, blood clot in the lung, tear in the aorta, or esophageal rupture. The inflammation may have been brought on by a blow to the chest, lifting heavy objects, intense exercise, or an illness that made you cough and sneeze a lot. It often occurs during times of emotional stress. It can be painful, but it is not dangerous. It usually goes away in 1 to 2 weeks. But it may happen again. Rarely, a more serious condition may cause symptoms similar to costochondritis. That s why it s important to watch for the warning signs listed below. Home care Follow these guidelines when caring for yourself at home: If you feel that emotional stress is a cause of your condition, try to figure out the sources of that stress. It may not be obvious. Learn ways to deal with the stress in your life. This can include regular exercise, muscle relaxation, meditation, or simply taking time out for yourself. You may use acetaminophen, ibuprofen, or naproxen to control pain, unless another pain medicine was prescribed. If you have liver or kidney disease or ever had a stomach ulcer, talk with your healthcare provider before using these medicines. You can also help ease pain by using a hot, wet compress or heating pad. Use this with or without a medicated skin cream that helps relieves pain. Do stretching exercise as advised by your provider. Take any prescribed medicines as directed. Follow-up care Follow up with your healthcare provider, or as advised, if you do not start to get better in the next 2 days. When to seek medical advice Call your healthcare provider right away if any of these occur: A change in the type of pain. Call if it feels different, becomes more serious, lasts longer, or spreads into your shoulder, arm, neck, jaw, or back. Shortness of breath or pain gets worse when you breathe Weakness, dizziness, or fainting Cough with dark-colored sputum (phlegm) or blood Abdominal pain Dark red or black stools Fever of 100.4 F (38 C) or higher, or as directed by your healthcare provider [id number] [employer]. [address] [place] [address], [place] [address]. All rights reserved. This information is not intended as a substitute for professional medical care. Always follow your healthcare professional's instructions. Additional Information VACCINATE! IT SAVES LIVES! Members of the community who have not yet received the COVID-19 vaccine and would like to receive it can visit one of [facility] vaccine clinics. There are many vaccine clinic locations within the [facility]. For locations and available times, please visit [email or web address]. It is important to note that some COVID mobile vaccine clinics are held outdoors and may be canceled in rainy or stormy conditions. To learn more about pediatric vaccinations (ages 5-11), we invite you to visit the [email or web address] [facility] webpage. [email or web address] To learn more about the COVID-19 vaccine, we invite you to visit the [facility] website for a list of frequently asked questions. [email or web address] [facility] Patient Portal Access Instructions: Stay connected with your healthcare team and access your personal medical information anytime with the [facility] Patient Portal. If you would like a full copy of your medical records please contact the [facility] Medical Records Department Wednesday through Wednesday between 8a.m. and 4:30p.m. Please follow the directions below to access the portal: 1.Access the email account you provided upon registration to the hospital.2.Look for an invitation email from [facility].3.Open the email and access the invitation link: Accept Invitation to [facility]4.Fill in the required kerr to create your account. Sign into [email or web address] with your username and password that you created in the above steps to stay up to date. You can then view a summary of results, a summary of your visits, and the ability to download your summaries to your computer or send the information securely to a physician. Remember that your healthcare information is confidential, so carefully consider who you will allow to register on the [facility] Patient Portal for access to your information. You can also access the [employer] Patient Portal on the [facility] chance. Simply click on Health Records under Health Data and then click on the [employer] logo. HOW TO SAFELY DISPOSE OF PRESCRIPTION MEDICATIONS Please use one of the following methods to safely dispose of your unused medications. 1.Use a drug disposal kit: the drug disposal pouch allows you to safely discard your old and unused drugs. Ask your nurse to give you one when you are discharged.2.Visit a local take-back location: Many local pharmacies and police departments have programs that collect old and unwanted prescription drugs. Call your local pharmacy or go to http://phorus.RotaPost/9X2Mf7v to find one close to you.3.Make use of household items: Use cat litter or old coffee grounds to dispose medications if other options are not available. Mix your drugs with these household products, seal them in an airtight container and throw it into the garbage. Call [facility]: [phone] to be sure your drugs can be disposed of in this way. Some medicines may require a different approach.4.Never flush your medications down the toilet. IF YOU HAVE BEEN PRESCRIBED AN OPIOIDS FOR PAIN If you have been prescribed an opioid (such as hydrocodone, oxycodone or morphine), it is critical to understand the possible side effects and risks of opioid pain medications. Even when taken as directed, opioids can have several side effects including: Tolerance, meaning you might need to take more of a medication for the same pain relief. Nausea, vomiting and/or constipation. Sleepiness, dizziness, dry mouth, confusion, depression or itching. Physical dependence, meaning you have withdrawal symptoms when a medication is stopped ? this can develop within a few days. KNOW YOUR RESPONSIBILITIES It is important to know exactly how much and how often to take the opioid pain medications you are prescribed. Never take opioids in higher amounts or more often than prescribed. Do not combine opioids with alcohol or other drugs that cause drowsiness, such as benzodiazepines, also known as benzos, including diazepam and alprazolam, muscle relaxants or sleep aids. Never sell or share prescription opioids. This is illegal. Store opioids in a secure place and out of reach of others (including children, family, friends and visitors). The last page(s) of this document has been signed and retained as a CHART COPY Signatures Patient Education Materials Chest Wall Pain, Costochondritis Medication Leaflets My discharge plan and instructions have been reviewed and explained to me and I,STEVE QUACH III understand my current condition and have read and understand these discharge instructions. I have received a written copy of the plan/instructions. If I have questions, I am aware that I should contact my doctor. 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 No consolidation, pleural effusion, pneumothorax or vascular congestion. No acute osseous abnormality. IMPRESSION: No acute process. I have personally reviewed the images of this examination and agree with the resident's findings and interpretation. Interpreted by: Ladarius Salgado MD Preliminary Report By: Poncho Coronado Electronically signed By Ladarius Salgado MD Dictated Date: 04/19/2022 7:19:18 PM Prelim Date: 04/19/2022 7:20:39 PM Sign Date: 04/19/2022 7:27:22 PM Ordering Provider: DEL ALANIZ [facility] 06-29-2021 Emergency department Note Copies of a transfer paper, chart and EKG given to [facility] personnel. Pt ambulated out of ED with [facility] officers. [facility] 06-29-2021 Emergency department Note Copies of a transfer paper, chart and EKG given to [facility] personnel. Pt ambulated out of ED with [facility] officers. Report called to Tammi at [facility] ED. Dr marcano to bedside. [facility] to bedside for transfer. Pt alert color-wnl resp easy lungs cta Pt c/o heart/chest pain, cat bite to right thumb no injury noted. Per pt knows something is wrong inside of him and he his dying, been to [facility] multiple times for it and they are not doing anything.Pt states went to [facility] the last [address] marcano to bedside. Per pt smoked pot today with aunt then came here. Per pt used a new dealer, but has gotten weed from him several times before but all resent. Pt with intermittent loud voice and with flight of ideas. ekg done by ana dunaway rn. Per pt had sex today and there was blood coming from his penis afterwards. Per pt God is is telling that he is dying and that something is wrong. Public safety notified of pt and is on standby outside of exam room. Steve Aleman Philomena : 1995 Chief Complaint Patient presents with Chest Pain Animal Bite Male Problem Allergies Allergen Reactions Pcn [Penicillins] Hives DOS: (Not on file) 25yo M reports he has chest pain after getting bitten by a cat 2 months ago. Patient initially denied all drug use then reported some drug use. Reports rib pain after coughing too much, he thinks he broke a rib. Reports God is telling him he's dying. Reports bleeding from penis. Reports stats on deaths caused by heart attacks after cat bites. Review of Systems Cardiovascular: Positive for chest pain. Skin: Positive for wound. Psychiatric/Behavioral: Positive for confusion and decreased concentration. Limited ROS due to patient's mental status. No past medical history on file. No past surgical history on file. Pediatric History Patient Parents Not on file Other Topics Concern Not on file Social History Narrative Not on file ED Triage Vitals None Physical Exam Constitutional: Appearance: He is well-developed. He is not ill-appearing. Comments: Appears high Cardiovascular: Rate and Rhythm: Regular rhythm. Tachycardia present. Heart sounds: Normal heart sounds. Pulmonary: Effort: Pulmonary effort is normal. No respiratory distress. Breath sounds: Normal breath sounds. Skin: Capillary Refill: Capillary refill takes less than 2 seconds. Neurological: General: No focal deficit present. Mental Status: He is alert. Comments: Pressured speech, appears high Psychiatric: Mood and Affect: Mood is anxious. Procedures MDM ED Course: Labs/Radiology: EKG- no ST segment elevation Consults: No orders of the defined types were placed in this encounter. Medical Record/Transferring Institution Record: n/a Treatment/Reassessment: below Encounter Documentation/Handoff: Medical Decision Making as of 06/29/211809 Sun Jun 29, 2021 1658 I spoke to [facility] to arrange for transfer via [facility]. [CC] 1658 EKG 12 lead (ECG) EKG without ST segment elevation. [CC] 1706 Discussed with [facility] attending who accepted the patient for admission. [CC] 1706 [facility] here. Patient agrees to transfer. [CC] Medical Decision Making User Index [CC] Bonnie Marcano MD Final Clinical Impression/Diagnosis as of 06/29/211809 Chest pain, unspecified type Cat bite, initial encounter Tachycardia Drug intoxication without complication 25yo M who appears under the influence of drugs reports chest pain several months after cat bite. Also reports rib pain after coughing too much. Will get EKG to look for ST segment elevation and plan to transport him via [facility] to [facility]. Patient in agreement with plan. I personally performed alfredo portions of the history and physical examination of this patient and discussed the management plan with the resident. I reviewed the resident's note and agree with the documented findings and plan of care, except as noted by and bold. See my documentation under MDM. Bonnie Marcano MD 06/29/2021 6:08 PM documented in this encounter [facility] 06-29-2021 Emergency department Note Report called to Tammi at [facility] ED. [facility] 06-29-[address] marcano to bedside. [facility] 06-29-2021 Emergency department Note AFD to bedside for transfer. [facility] 06-29-2021 Hospital Discharge instructions Bonnie Marcano MD - 06/29/2021 4:59 PM EDT Go to [facility] at this time. documented in this encounter [facility] 06-29-2021 Emergency department Triage note Pt alert color-wnl resp easy lungs cta Pt c/o heart/chest pain, cat bite to right thumb no injury noted. Per pt knows something is wrong inside of him and he his dying, been to [facility] multiple times for it and they are not doing anything.Pt states went to [facility] the last [address] marcano to bedside. Per pt smoked pot today with aunt then came here. Per pt used a new dealer, but has gotten weed from him several times before but all resent. Pt with intermittent loud voice and with flight of ideas. ekg done by ana dunaway rn. Per pt had sex today and there was blood coming from his penis afterwards. Per pt God is is telling that he is dying and that something is wrong. Public safety notified of pt and is on standby outside of exam room. [facility] 06-29-2021 Physician Emergency department Note Steve Quach : 1995 Chief Complaint Patient presents with Chest Pain Animal Bite Male Problem Allergies Allergen Reactions Pcn [Penicillins] Hives DOS: (Not on file) 25yo M reports he has chest pain after getting bitten by a cat 2 months ago. Patient initially denied all drug use then reported some drug use. Reports rib pain after coughing too much, he thinks he broke a rib. Reports God is telling him he's dying. Reports bleeding from penis. Reports stats on deaths caused by heart attacks after cat bites. Review of Systems Cardiovascular: Positive for chest pain. Skin: Positive for wound. Psychiatric/Behavioral: Positive for confusion and decreased concentration. Limited ROS due to patient's mental status. No past medical history on file. No past surgical history on file. Pediatric History Patient Parents Not on file Other Topics Concern Not on file Social History Narrative Not on file ED Triage Vitals None Physical Exam Constitutional: Appearance: He is well-developed. He is not ill-appearing. Comments: Appears high Cardiovascular: Rate and Rhythm: Regular rhythm. Tachycardia present. Heart sounds: Normal heart sounds. Pulmonary: Effort: Pulmonary effort is normal. No respiratory distress. Breath sounds: Normal breath sounds. Skin: Capillary Refill: Capillary refill takes less than 2 seconds. Neurological: General: No focal deficit present. Mental Status: He is alert. Comments: Pressured speech, appears high Psychiatric: Mood and Affect: Mood is anxious. Procedures MDM ED Course: Labs/Radiology: EKG- no ST segment elevation Consults: No orders of the defined types were placed in this encounter. Medical Record/Transferring Institution Record: n/a Treatment/Reassessment: below Encounter Documentation/Handoff: Medical Decision Making as of 06/29/21 1810 Sun Jun 29, 2021 1658 I spoke to [facility] to arrange for transfer via [facility]. [CC] 1658 EKG 12 lead (ECG) EKG without ST segment elevation. [CC] 1706 Discussed with [facility] attending who accepted the patient for admission. [CC] 1706 [facility] here. Patient agrees to transfer. [CC] Medical Decision Making User Index [CC] Bonnie Marcano MD Final Clinical Impression/Diagnosis as of 06/29/21 1810 Chest pain, unspecified type Cat bite, initial encounter Tachycardia Drug intoxication without complication 25yo M who appears under the influence of drugs reports chest pain several months after cat bite. Also reports rib pain after coughing too much. Will get EKG to look for ST segment elevation and plan to transport him via [facility] to [facility]. Patient in agreement with plan. I personally performed alfredo portions of the history and physical examination of this patient and discussed the management plan with the resident. I reviewed the resident's note and agree with the documented findings and plan of care, except as noted by and bold. See my documentation under MDM. Bonnie Marcano MD 06/29/2021 6:[address] [facility] 06-29-2021 Hospital Discharge instructions Additional Instructions Follow-up with the counseling center. Your heart and lungs are fine. Use the Ativan tonight when you go home to help you sleep. [facility] Work Phone: 07-02-2020 History of Present illness Narrative Radiology Service Progress Note PATIENT NAME: Steve Quach DATE OF SERVICE: July 02, 2020 TIME: 9:41 AM PATIENT IDENTITY VERIFICATION COMPLETED USING TWO (2) IDENTIFIERS: Name and Date of confirmed by patient verbally. FALL SCREENING: Has the patient had 2 falls in the last year or 1 fall with injury or currently using an Ambulatory Assistive Device (Walker, Cane, Wheelchair, Crutches, etc.)? No PATIENT GENDER DATA: Male PATIENT RELEVANT IMPLANT DATA REVIEWED: Yes RADIOLOGY DEPARTMENT: General X-ray: Exam(s) Completed: Upper Extremity X-Ray(s): Shoulder, AP / TRUE AP / AXILLARY left : PERIPHERAL IV DATA: Not applicable SIGNED BY: RT Sydni July 02, 2020 9:41 AM documented in this encounter [facility] Evaluation + Plan note No data available for this section [facility] Evaluation note No assessment inform ation available [facility] Work Phone: Evaluation note Diagnosis Chest pain, unspecified type- Primary Cat bite, initial encounter Tachycardia Tachycardia, unspecified Drug intoxication without complication [facility] Diagnosis Onset Date Resolution Status Altered mental status acute Hyperammonemia acute Seizure acute Seizure-like activity acute [facility] Work Phone: Evaluation note* Diagnosis Onset Date Resolution Status Altered mental status acute Encephalopathy acute Hyperammonemia acute Seizure acute Seizure-like activity acute [facility] Work Phone: Evaluation note* Diagnosis Chronic left shoulder pain Pain in joint, shoulder region documented in this [facility]* Diagnosis Sore throat- Primary Acute pharyngitis documented in this encounter [facility] note* Diagnosis Vomiting and diarrhea- Primary Vomiting alone [facility] Work Phone: [facility] Work Phone: [facility] Work Phone: [facility] Work Phone: [facility] Work Phone: Reason for referral (narrative)No reason for referral [facility] Work Phone: Summary Purpose Family History Relationship Condition Age at Onset Recorded Date/T sina father Cardiac disease Unknown Hypertension Unknown Diabetes mellitus Unknown Advance Directives Documents on File Type Date Recorded Patient Hypoid Gear Tester Expl anation Advance Directives and Livin g Will 11/04/2019 5:10 AM Advance Directive Response Recorded Date/ Time Living Will No June 28, 2021 7:08pm Power of Zigzag Tunnel Elastic Operator No June 28 7:08pm Advance Directive Response Recorded Date/ Time Living Will No June 28, 2021 9:17pm Power of Zigzag Tunnel Elastic Operator No June 28 9:17pm Advance Directive Response Recorded Date/ Time Living Will No June 28, 2021 11:47pm Power of Zigzag Tunnel Elastic Operator No June 28 11:47pm Documents on File Type Date Recorded Patient Hypoid Gear Tester Expl anation Power of Zigzag Tunnel Elastic Operator Advance Directive Response Recorded Date/ Time Living Will No June 30, 2021 1:50am Power of Zigzag Tunnel Elastic Operator No June 30 1:50am Advance Directive Response Recorded Date/ Time Living Will No July 16, 2021 3:14am Power of Zigzag Tunnel Elastic Operator No July 16 3:14am Advance Directive Response Recorded Date/ Time Living Will No July 16, 2021 7:50am Power of Zigzag Tunnel Elastic Operator No July 16 7:50am Discharge Instructions * Instructions* Que Bauer MD - 11/04/2019 Follow instructions as discussed with you by the social staff worker If having suicidal or homicidal thoughts or if you feel unable to cope at home call 911 or return to ER immediately documented in this encounter Assessments Diagnosis Psychosis, unspecified psychosis type (HCC) Alcoholic intoxication without complication (HCC) Bipolar affective (HCC) Bipolar disorder, unspecified Chief Complaint and Reason for Visit Chief Complaint chest pain palp PALPITATIONS, ANXIETY Chief Complaint chest pain palp PALPITATIONS, ANXIETY chest tightness Chief Complaint chest pain palp PALPITATIONS, ANXIETY chest tightness chest pain Chief Complaint chest pain palp PALPITATIONS, ANXIETY chest tightness chest pain cp Chief Complaint chest pain palp PALPITATIONS, ANXIETY chest tightness chest pain cp altered LOC ENCEPHALOPATHY, SEIZURE SUSPECTED Reason for Visit Altered mental statu s Hyperammonemia Seizure Seizure-like activity Chief Complaint chest pain palp PALPITATIONS, ANXIETY chest tightness chest pain cp altered LOC ENCEPHALOPATHY, SEIZURE SUSPECTED ENCEPHALOPATHY, SEIZURE SUSPECTED ENCEPHALOPATHY, SEIZURE SUSPECTED Reason for Visit Altered mental statu s Encephalopathy Hyperammonemia Seizure Seizure-like activity Chief Complaint chest pain palp PALPITATIONS, ANXIETY chest tightness chest pain cp altered LOC ENCEPHALOPATHY, SEIZURE SUSPECTED ENCEPHALOPATHY, SEIZURE SUSPECTED ENCEPHALOPATHY, SEIZURE SUSPECTED ENCEPHALOPATHY, SEIZURE SUSPECTED Reason for Visit Altered mental statu s Encephalopathy Hyperammonemia Seizure Seizure-like activity Chief Complaint Admit Date REASONABLE MARCELLE NON DOT DRUG & BAT/ WILLB URT October 30, 2024 1:59pm Additional Source Comments (unrecognized sect ion and content) No Status Records FoundNo Status Records FoundNo Status Records FoundNo Status Records FoundNo Status Records FoundNo Status Records FoundNo Status Records FoundNo Status Records FoundNo Status Records Found INFORMATION SOURCE (unrecogn ized section and content) DATE CREATED AUTHOR 12/23/2018 [facility] DATE CREATED AUTHOR AUTHOR'S ORGANIZ ATION 01/14/2019 [facility] DATE CREATED AUTHOR AUTHOR'S ORGANIZ ATION 11/10/2019 [facility] DATE CREATED AUTHOR AUTHOR'S ORGANIZ ATION 05/21/2021 [facility] DATE CREATED AUTHOR AUTHOR'S ORGANIZ ATION 07/03/2021 [facility] DATE CREATED AUTHOR AUTHOR'S ORGANIZ ATION 07/18/2021 [facility] DATE CREATED AUTHOR AUTHOR'S ORGANIZ ATION 04/14/2022 [facility] ([place] DATE CREATED AUTHOR AUTHOR'S ORGANIZ ATION 02/19/2024 [facility] DATE CREATED AUTHOR AUTHOR'S ORGANIZ ATION 05/25/2024 [facility] Reason for Visit (unrecogniz ed section and content) Reason Comments Psychiatric Evaluation Reason Comments Chest Pain Animal Bite Male Problem Reason Comments Cough Cough, vomiting and ST x 2-3 days Reason Comments Nausea & Vomiting Diarrhea x 1 day Naomi Tobias LISW-S - 11/04/2019 3:09 PM EDT Consult Notes (unrecognized section and content) Associated Order(s): ED CONSULT TO PSYCH - COMPANY SECRETARY ED Esthetician/Owner Behavioral Health Initial Assessment Date: 11/04/2019 Time: 3:09 PM Patient Name: Steve Quach Date of : 1995 Sex: Male Admit Date/Time: 11/04/2019 3:16 AM GENERAL INFORMATION General Information Mixing Place Supervisor Needs: Not needed Information Provided By: Pt and pt's motherJon Patient Support System: Pt reports having a very supportive and close family' Current Living Arrangements: Pt reports he lives with his father, stepmother and brother, and reports positive relationships with family Type of Residence: Private residence Name and Contact of Collateral Provider: Jon Presley (mother) [phone] LEGAL STATUS Discharge DIAGNOSIS/ACTIVE PROBLEM LIST Hospital Problem List Codes * (Principal) Bipolar affective (HCC) ICD-10-CM: F31.9 ICD-9-CM: 296.80 CHIEF COMPLAINT/HISTORY OF PRESENT ILLNESS Chief Complaint/History Present Illness Chief Complaint: Pt was brought to the ED by police, after making statements that he was seeing things, hearing demons, and was possessed by demons. Comments were made while pt was heavily intoxicated. Current Symptoms: Substance abuse History of Present Illness: Pt is a 23 y.o. male, presenting to the ED via police, after police found him at a motel, making statements that he was seeing and hearing things and was possessed by demons. Upon assessment, pt presents as euthymic with linear thought process, did not appear to be attending to any internal stimuli. When asked about the events of the night before, pt reports I was just drunk. Pt reports that he takes Seroquel and this helps to effectively manage his sxs of bipolar disorder. Pt denies that he has never experienced psychosis and has only had minor incidents of hypomania, none recently. Pt reports he is linked with a psychiatrist and has appointments every 90 days. He reports that he is also prescribed Depakote, but that he does not take it, as he feels that the Seroquel manages sxs effectively. Pt was intoxicated upon arrival, reporting that he did drink quite a bit last night. Pt reports that it is rare for him to drink, and when he does, he usually doesn't drink a lot. Last night was an exception, and he identifies this as the reason why his bx became abnormal and comments were made. Pt denies any SI/HI currently and historically. Pt's mother also confidently denied any safety concerns, stating that she has never heard pt make any statements that have led her to believe he was having thoughts of SI/SIB. Mom also denied knowing of any incidents of psychosis. Both pt and mom report confidence in ability to maintain safety if pt were to be released from the ED. Pt was future oriented and able to identify coping skills as well as several personal strengths. PAST PSYCHIATRIC HISTORY Past Psychiatric History Previous Psychiatric Diagnosis: Per chart and pt, pt has prior diagnosis of Bipolar II disorder, chart also indicates schizoaffective diagnosis, though pt stated he was not sure whether he has been diagnosed or not. Previous Psychiatric Medications: Other(None reported) Previous Psychiatric Hospitalizations: None reported Current Psychiatric Medications: Seroquel and pt reports he is prescribed Depakote, but does not take it. ALCOHOL/DRUG ABUSE HISTORY Alcohol/Drug Abuse History Current Alcohol Use (Frequency): Rare Amount of Alcohol Consumed: Pt reports that he drinks very rarely, and doesn't usually drink a lot when he does drink, which he reports is why he had the reaction he did last night. Reports he did drink a lot last night. Pattern of Alcohol Use: Episodic binge Date Last Used: 11/03/2019 Withdrawal Symptoms/History of Withdrawal: None reported or noted Current Drug Use: No History/Current Alcohol/Drug Treatment: None reported MENTAL STATUS EVALUATION Mental Status Evaluation General Appearance: Equal to stated age, Well-groomed Orientation: Oriented to person, place, and time Level of Consciousness: Alert Mood/Affect: Euthymic Behavior: Cooperative, Appropriate to situation, Ability to maintain focus Remote Memory: Mildly impaired Language and Speech Content: Appropriate Impulse Control: Shows poor planning, Acts without considering alternatives Insight: Partial awareness Judgment: Fair PATIENT STRENGTHS Patient Strengths Patient Strengths: Basic self-care skills, Family/friends, Housing, Leisure skills, Mental health services, Physical health, Spiritual beliefs RISK ASSESSMENT Risk Factors Recent Psychological Experiences: None Current Suicidal Ideation: No Previous Suicidal Ideation: No Current Suicide Attempt: No Previous Suicide Attempt: No Current Self Harm Behavior: No Previous Self Harm Behavior: No Current Plans to Harm Another: No Previous Plans to Harm Another: No History of Attempts to Harm Another: No Access to Weapons: No Violent Episode: No Previous Violent Episode: No Family History of Suicide: Yes Describe Family History of Suicide : Maternal grandfather committed suicide when pt's mother was 13 y.o. Family History of Mental Illness: Information not available Family History of Substance Abuse: Yes Describe Family History of Substance Abuse Text: Pt reports having an aunt with substance abuse issues Elopement: No risk Methods to Calm Down: Quiet time in room Restraint Risk Factors: None PROTECTIVE FACTORS Protective Factors Family and Community Support (Connectedness): Yes Ongoing Medical and Mental Health Services (Community Support): Yes Skills In Problem Solving and Conflict Resolution (Coping Skills): Yes Cultural and Latter Day Beliefs: Yes Access to Weapons: No TREATMENT RECOMMENDATIONS AND CLINICAL SUMMARY Treatment Recommendations and Clinical Summary Current Recommendations: Referral to previous/current provider RATIONALE/PLAN FOR TREATMENT: Pt is a 23 y.o. male, presenting to the ED after making comments to police while intoxicated that he was hearing and seeing things and was possessed by demons. Upon assessment, pt denies any sxs of psychosis and did not appear to be attending to internal stimuli. Pt denies any SI/SIB/HI both currently and historically, and mom confirmed this as well. Pt's risk is most closely linked to his alcohol use, and upon sobering up, presents as euthymic and linear in thought process. Pt reports no memory of the events of last night due to alcohol use, which was significantly higher than he typically consumes, per pt report. Both pt and mom report no concerns in having pt released to return home. Pt does not currently meet criteria for inpatient hospitalization at this time. Pt's risk can most effectively be modified by abstinence from alcohol use and ongoing participation in mental health services, as well as taking medication as prescribed by his psychiatrist. Risk Factors: Age, gender, substance abuse, does not take one of prescribed medications, family hx of suicide, ongoing mental health issues. Protective factors: No prior hospitalizations or reported SI/HI, engaged with psychiatry services, consistently takes Seroquel, able to identify personal strengths and positives in his life, is future oriented, methodist beliefs, lack of access to weapons, close relationships with family and large identified support system. documented in this encounter Heike Mendoza RN - 11/04/2019 4:35 PM Heike Goss RN - 11/04/2019 4:32 PM EDTEgalQue MD - 11/04/2019 4:26 PM Heike Goss RN - 11/04/2019 4:21 PM EDT ED Notes (unrecognized secti on and content) PT GIVEN CLOTHES BY [employer] HE STATES HE DOESN'T HAVE HIS MONEY JANICE PSA GAVE HIM THIS FROM THE [employer] PT VITALS UPDATED AND PT STATES HE WILL HAVE A RIDE COMING FOR HIM PT DENIES PAIN ED PROVIDER NOTE [facility] EMERGENCY DEPARTMENT NAME: Steve Quach AGE: 23 y.o. : 1995 VISIT DATE: 11/04/2019 CSN: [id number] PCP: Physician No Chief Complaint Patient presents with Psychiatric Evaluation HPI History reviewed. No pertinent past medical history. History reviewed. No pertinent surgical history. History reviewed. No pertinent family history. Social History Socioeconomic History Marital status: Single Spouse name: Not on file Number of children: Not on file Years of education: Not on file Highest education level: Not on file Occupational History Not on file Social Needs Financial resource strain: Not on file Food insecurity Worry: Not on file Inability: Not on file Transportation needs Medical: Not on file Non-medical: Not on file Tobacco Use Smoking status: Never Smoker Smokeless tobacco: Never Used Substance and Sexual Activity Alcohol use: Never Frequency: Never Drug use: Never Sexual activity: Not on file Lifestyle Physical activity Days per week: Not on file Minutes per session: Not on file Stress: Not on file Relationships Social connections Talks on phone: Not on file Gets together: Not on file Attends methodist service: Not on file Active member of club or organization: Not on file Attends meetings of clubs or organizations: Not on file Relationship status: Not on file Other Topics Concern Not on file Social History Narrative Not on file Previous Medications Medication Sig QUEtiapine (SEROQUEL) 25 MG tablet Take 25 mg by mouth nightly . Allergies Allergen Reactions Penicillins Rash Review of Systems Patient Vitals for the past 24 hrs: BP Temp Temp src Pulse Resp SpO2 Height Weight 11/04/19 1018 123/74 (!) 59 18 100 % 11/04/19 0526 117/74 95 16 96 % 11/04/19 0317 115/69 98.4 F (36.9 C) Oral (!) 109 18 96 % 6' 5 129.3 kg (285 lb) Physical Exam Laboratory & Radiographic Imaging (if done): Results for orders placed or performed during the hospital encounter of 11/04/19 COVID-19, Molecular Result Value Ref Range SARS-CoV-2 Not Detected Not Detected Alcohol, Medical Result Value Ref Range Alcohol (Medical) 225.70 (H) <10.00 mg/dL Urine Drug Screen Result Value Ref Range Amphetamine Screen, Urine None Detected None Detected Barbiturate Screen, Urine None Detected None Detected Benzodiazepine Screen, Urine None Detected None Detected Cannabinoid Screen, Urine None Detected None Detected Cocaine, Screen Urine None Detected None Detected Methadone Screen, Urine None Detected None Detected Opiate Screen, Urine None Detected None Detected Oxycodone Screen, Urine None Detected None Detected Valproic Acid Level Result Value Ref Range Valproic Acid <3 (L) 50 - 100 mcg/mL Lavender Top Result Value Ref Range Extra Tube Hold for add-ons. Gold Top Result Value Ref Range Extra Tube Hold for add-ons. Light Blue Top Result Value Ref Range Extra Tube Hold for add-ons. Alcohol, Medical Result Value Ref Range Alcohol (Medical) 112.10 (H) <10.00 mg/dL Alcohol, Medical Result Value Ref Range Alcohol (Medical) 34.40 (H) <10.00 mg/dL XR Knee Right 2 Views (Standard) Final Result Small right knee joint effusion. No acute osseous abnormality. Workstation ID: [id number] Procedures MDM Number of Diagnoses or Management Options Alcoholic intoxication without complication (HCC): Psychosis, unspecified psychosis type (HCC): Diagnosis management comments: My only involvement in this patient's care is to briefly evaluate him after social staff worker recommended the patient be discharged home with his family. Patient is alert oriented x3 and has no suicidal homicidal thoughts. His thoughts are coherent. He feels safe to go home. It appears patient had alcohol induced psychosis last night with confusion. He feels well and he is now medically stable. He understands if he develops suicidal homicidal thoughts or feels unsafe at home he should return to ER or call 911. The patient has been informed that they may have pre-hypertension or hypertension based on a blood pressure reading in the Emergency Department. I recommend that the patient call the primary care provider listed on their discharge instructions or a physician of their choice as soon as possible to arrange follow-up in the next 4 weeks for further evaluation of possible pre-hypertension or hypertension. . Clinical Impression: 1. Psychosis, unspecified psychosis type (HCC) 2. Alcoholic intoxication without complication (HCC) ED Disposition ED Disposition Condition Comment Discharge Stable Edpop Mcbrides discharged to home/self care in stable condition. Follow-up Information Follow-up information has not been specified. Contact information for after-discharge care Follow-up information has not been specified. Que Bauer MD 11/04/[address] BAUER AT [facility] AND WILL D/C PT HOME Rounding: ABCs intact, no c/o. ACTIVITY: Pt resting quietly on cart; patent airway. Spontaneous breathing w/ regular respirations. NEEDS/CONCERNS- none voiced, SAFETY: cart in low position, call light within reach. Pt remains in blue gown with continuous video/sitter monitoring in place for pt safety. No HI/SI attempts, nonviolent at present. Mom would like a call when pt is ready to be released so that she can come pick pt up. Mom reportedly lives 30-40 minutes from the hospital. REPORT REC'D FROM TOM HEARD Spoke with dr bauer regarding CCTV TECHNICIAN eval, pt able to be d/c and she spoke with pt mother. Dr bauer states he will come talk with pt Pt resting on bed, RR even and unlabored Talking to staff at desk LAB DRAWN PT ON PHONE AT DESK BREAKFAST GIVEN PT AT NURSES STATION TALKING WITH STAFF. PT RESTING ON BED WITH EYES CLOSED, RR EVEN AND UNLABORED Vitals obtained, pt resting in bed on back, respirations even and unlabored, no signs of distress noted. Pt followed commands to lift arm and give finger for vitals. Pt resting without needs at this time. Urine obtained via straight cath. Virtual PSS following. Alcohol level is .225 Pt laying in bed, blanket provided, pt unable to urinate at this time. This nurse told pt we can get urine in a little bit. This nurse allowed pt to keep nose ring at this time. Pt was found at [facility] and was unable to answer officers questions, per ems. Pt cooperative, states his knee hurts. Pt denies drug and ETOH abuse. [facility] ED Attending Note: NAME: Steve Quach 23 y.o. CSN: [id number] PCP: No primary care provider on file. History: Chief Complaint: Psychiatric Evaluation HPI: The history was obtained from the patient. Steve is a 23 y.o. male who presents with a chief complaint of Psychiatric Evaluation. 23-year-old male, history of schizoaffective disorder bipolar, hypomania presents for psychiatric evaluation. Police brought patient in because they were called for abnormal activity, patient states he was seeing things, hearing demons, states he was possessed by demons. To me he denies all he sings denies suicidal ideation or homicidal ideation, but does endorse knee pain for his right knee, 2 to 3 days no trauma. The police did place a pink slip He is on Seroquel, did not take yesterday Previous chart review also indicates he was on Depakote PMHx: Bipolar, schizoaffective, PMSx: History reviewed. No pertinent surgical history. FAM. Hx: History reviewed. No pertinent family history. SOC. Hx: Social History Socioeconomic History Marital status: Not on file Spouse name: Not on file Number of children: Not on file Years of education: Not on file Highest education level: Not on file Occupational History Not on file Social Needs Financial resource strain: Not on file Food insecurity Worry: Not on file Inability: Not on file Transportation needs Medical: Not on file Non-medical: Not on file Tobacco Use Smoking status: Never Smoker Smokeless tobacco: Never Used Substance and Sexual Activity Alcohol use: Never Frequency: Never Drug use: Never Sexual activity: Not on file Lifestyle Physical activity Days per week: Not on file Minutes per session: Not on file Stress: Not on file Relationships Social connections Talks on phone: Not on file Gets together: Not on file Attends methodist service: Not on file Active member of club or organization: Not on file Attends meetings of clubs or organizations: Not on file Relationship status: Not on file Other Topics Concern Not on file Social History Narrative Not on file MEDs: Previous Medications Medication Sig QUEtiapine (SEROQUEL) 25 MG tablet Take 25 mg by mouth nightly . ALL: No Known Allergies PACU Vitals 11/04/19 0317 BP: 115/69 Pulse: (!) 109 Resp: 18 Temp: 98.4 F (36.9 C) SpO2: 96% Review of Systems Constitutional: Negative for activity change and appetite change. HENT: Negative for congestion, facial swelling and sinus pain. Respiratory: Negative for cough, choking and shortness of breath. Cardiovascular: Negative for chest pain. Gastrointestinal: Negative for abdominal distention and abdominal pain. Genitourinary: Negative for dysuria and flank pain. Musculoskeletal: Negative for neck pain. Neurological: Negative for dizziness and syncope. Psychiatric/Behavioral: Negative for confusion and suicidal ideas. All other systems reviewed and are negative. Physical Exam Vitals signs and nursing note reviewed. Constitutional: Appearance: Normal appearance. He is not diaphoretic. HENT: Head: Normocephalic and atraumatic. Right Ear: External ear normal. Left Ear: External ear normal. Nose: Nose normal. No congestion or rhinorrhea. Mouth/Throat: Mouth: Mucous membranes are moist. Eyes: General: No scleral icterus. Extraocular Movements: Extraocular movements intact. Conjunctiva/sclera: Conjunctivae normal. Pupils: Pupils are equal, round, and reactive to light. Neck: Musculoskeletal: Neck supple. Cardiovascular: Rate and Rhythm: Normal rate and regular rhythm. Pulses: Normal pulses. Heart sounds: Normal heart sounds. No murmur. No gallop. Pulmonary: Effort: Pulmonary effort is normal. No respiratory distress. Breath sounds: Normal breath sounds. No wheezing or rales. Chest: Chest wall: No tenderness. Abdominal: Palpations: Abdomen is soft. There is no mass. Tenderness: There is no abdominal tenderness. There is no guarding or rebound. Musculoskeletal: General: No swelling. Right lower leg: No edema. Left lower leg: No edema. Comments: Right knee tender to palpation, in the proximal knee, just above the patella, but with no ligamentous laxity, able to ambulate Skin: General: Skin is warm. Neurological: General: No focal deficit present. Mental Status: He is alert and oriented to person, place, and time. Mental status is at baseline. Psychiatric: Mood and Affect: Mood normal. Laboratory & Radiological Imaging (if done): Recent Results (from the past 24 hour(s)) Alcohol, Medical Collection Time: 11/04/19 3:43 AM Result Value Ref Range Alcohol (Medical) 225.70 (H) <10.00 mg/dL Valproic Acid Level Collection Time: 11/04/19 3:43 AM Result Value Ref Range Valproic Acid <3 (L) 50 - 100 mcg/mL COVID-19, Molecular Collection Time: 11/04/19 3:43 AM Result Value Ref Range SARS-CoV-2 Not Detected Not Detected XR Knee Right 2 Views (Standard) (Results Pending) ED Course / Medical Decision Making: Patient with known psychiatric disorder, presents with auditory hallucinations. I will get x-ray of the knee, get psychiatric labs, and then have psych evaluate him X-ray negative, COVID negative, valproic acid negative, he does not state he is on this but prior notes indicate he may be, unclear if this is truly the case, alcohol 225, likely contributing, will wait for sobriety and evaluation by psychiatry Clinical Impression: 1. Psychosis, unspecified psychosis type (HCC) Reuben Mcwilliams MD [facility] Emergency Department (Please note that portions of this note have been completed with a voice recognition software. Efforts were made to correct any errors, but occasionally words are mis-transcribed.) Reuben Mcwilliams MD 11/04/19 0437 documented in this encounter Goals (unrecognized section and content) Goals may be documented in a n alternate sectionGoals may be documented in an alternate sectionGoals may be documented in an alternate sectionGoals may be documented in an alternate sectionGoals may be documented in an alternate sectionGoals may be documented in an alternate sectionGoals may be documented in an alternate section No data available for this sectionGoals may be documented in an alternate section Care Teams (unrecognized sec tion and content) Punch Box Tender Relationship Specialty Start Date End Date No Primary Care, [place] [address] PCP - General Pediatrics 06/29/21 Team Status: Active Member Role/Relationship Status Dates Dr. Kelli Hurtado MD Primary Care Provider Active Team Status: Inactive Member Role/Relationship Status Dates Dr. Kelli Hurtado MD Primary Care Provider Active Start: October 30, 2024 End: October 30, 2024 Dr. Kelli Hurtado MD Referring Provider Active Start: October 30, 2024 End: October 30, 2024 Emanuel FU, PA Attending Provider Active Start: October 30, 2024 End: October 30, 2024 Care Team (unrecognized sect ion and content) Care Team Personnel Name: PHYSICIAN, NONE Position: Physician Member Role: Primary Care Physician Name: DEL ALANIZ DO Position: ED Physician Member Role: ED Physician Address: Address: [address] [place] [id number]- Care Team Related Persons Name: LOIS QUACH Name: LOIS QUACH Name: PRESLEY, JON Name: PRESLEY, JON Name: PRESLEY, JON Name: PRESLEY, JON Name: PRESLEY, JON Name: PRESLEY, JON Name: PRESLEY, JON Name: PRESLEY, JON Name: PRESLEY, JON Source Comments (unrecognize d section and content) In the event this informatio n is protected by the Federal Confidentiality of Alcohol and Drug Abuse Patient Records regulations: The Federal rules restrict any use of the information to criminally investigate or prosecute any alcohol or drug abuse patient.[facility] the event this information is protected by the Federal Confidentiality of Alcohol and Drug Abuse Patient Records regulations: The Federal rules restrict any use of the information to criminally investigate or prosecute any alcohol or drug abuse patient.[facility] Hospital[facility] the event this information is protected by the Federal Confidentiality of Alcohol and Drug Abuse Patient Records regulations: The Federal rules restrict any use of the information to criminally investigate or prosecute any alcohol or drug abuse patient.[facility] FOR RECORDS PERTAINING TO PATIENTS WHO ARE OR HAVE BEEN ENROLLED IN A CHEMICAL DEPENDENCY/SUBSTANCEABUSE PROGRAM, SOME INFORMATION MAY BE OMITTED. This clinical summary was aggregated from multiple sources. Caution should be exercised in using it in the provision of clinical care. This summary normalizes information from multiple sources, and as a consequence, information in this document may materially change the coding, format and clinical context of patient data. In addition, data may be omitted in some cases. CLINICAL DECISIONS SHOULD BE BASED ON THE PRIMARY CLINICAL RECORDS. [employer] [facility] provides no warranty or guarantee of the accuracy or completeness of information in this document.
[2024-11-01 02:00] VITALS: BP 114/85; PULSE 73; RESP 18; O2SAT 98
--- NOTE | 2024-11-01 02:06 | RAD_ITS ---
PROCEDURE: CHEST PA AND LATERAL 11/01/2024 REASON FOR EXAM: CHEST PAIN TECHNIQUE: CHEST PA AND LATERAL COMPARISON: 07/16/2021 FINDINGS: Normal heart size. Well inflated lungs. No consolidation, effusion, or pneumothorax. RAD/Chest PA and Lateral IMPRESSION: No acute chest findings. Reading Location: [facility]
[2024-11-01 02:13] LABS: Anion Gap 12 (5-15); BUN 14 mg/dL (4-19); BUN/Creat Ratio 15.9 RATIO (10-20); Calcium,Total 9.3 mg/dL (7.6-11.0); Carbon Dioxide 25.3 mmol/L (21.0-32.0); Chloride 100 mmol/L (98-108); Estimated Creatinine Clearance 124.97 ml/min (50-250); Glucose 101 mg/dL (70-99); Magnesium 2.2 mg/dL (1.5-2.2); Potassium 4.1 mmol/L (3.3-5.1); Troponin T High Sensitivity 15 ng/L (<=22)
--- NOTE | 2024-11-01 02:33 | EDS_ITS ---
HPI History of Present Illness Chief Complaint: Chest Pain Informant: patient and spouse/S.O. Narrative Narrative: Patient is a 28-year-old male with past medical history of anxiety. He states he used to be on Seroquel and took Ativan for breakthrough symptoms. However he states he does not like taking medication and therefore took himself off the medication quite a while ago. He states recently he has been having sensation of sharp electric shock pain across his chest. He states he is not sure why he is having this and if it is related to potential breakthrough anxiety. He denies any recent sick symptoms or trauma. He denies any recent travel surgery or history of DVT/PE. He does admit to having a first cousin who reportedly had a heart attack at age 20. Therefore with these concerns and his symptoms he presents for evaluation [facility] Medical History Anxiety and depression TBI (traumatic brain injury) Cannabis use disorder, mild, abuse Schizophrenia PTSD (post-traumatic stress disorder) Manic bipolar I disorder Bipolar 1 disorder Home Medications ?Medication ?Instructions ?Recorded ?Last Taken ?Type buspirone 7.5 mg tablet 7.5 mg PO BID 30 days #60 ta bs 11/01/24 Unknown Rx Allergy/AdvReac Type Severity Reaction Status Date / Time Penicillins Allergy Hives Verified 11/01/24 00:47 Family History (Updated 07/16/21 @ 06:[address] Hollie Carvalho MD) Father Heart disease Hypertension Diabetes Surgical History History of surgery on arm Social History (Updated 07/16/21 @ 06:[address] Hollie Carvalho MD) household members: significant other Smoking Status: Current every day smoker tobacco type: cigarettes Smokeless tobacco user: other alcohol intake: never substance use type: marijuana ROS ROS ED Constitutional Constitutional ED: Denies chills or fever(s) Eyes Eyes: Denies change in vision ENT ENT ED: Denies sore throat Cardiovascular Cardiovascular: Reports chest pain Respiratory/Chest Respiratory/Chest: Denies cough or dyspnea Gastrointestinal Gastrointestinal: Denies abdominal pain, diarrhea, nausea or vomiting Genitourinary Genitourinary ED: Denies dysuria Musculoskeletal Musculoskeletal: Denies back pain or myalgias Integumentary Denies rash Neurologic Neurologic: Reports paresthesias; Denies headache(s) Psychiatric Psychiatric: Reports anxiety; Denies suicidal ideation or suicidal thoughts Hematologic/Lymphatic Hematologic/Lymphatic: Denies easy bleeding or easy bruising EXAM Physical Exam Const Vital Signs: 11/01/24 00:43 11/01/24 00:46 11/01/24 01:43 Temperature 97.8 F Temperature Source Oral Pulse Rate 89 81 Respiratory Rate 12 14 Respiratory Effort Normal Non-Labored Blood Pressure 125/74 H 114/79 Blood Pressure Mean 91 90 Pulse Ox 100 99 Oxygen Delivery Method Room Air 11/01/24 02:00 Temperature Temperature Source Pulse Rate 73 Respiratory Rate 18 Respiratory Effort Blood Pressure 114/85 H Blood Pressure Mean 94 Pulse Ox 98 Oxygen Delivery Method Room Air Positive well nourished and well developed General Appearance ED: well developed; Negative for pallor HEENT HEENT Narrative: Normocephalic atraumatic Eyes PERRL and EOMs intact bilaterally General Eye ED: Negative for scleral icterus Neck supple Neck Narrative: No nuchal rigidity or meningeal signs Chest Wall Chest Narrative: No bony deformity or crepitance of the chest wall Resp normal respiratory effort and clear to auscultation bilaterally Cardio regular rate and regular rhythm Rate: other Other Details: Regular rate and rhythm without murmurs rubs or gallop Radial and carotid pulses are equal and symmetric No carotid bruit noted GI normal to inspection, nondistended, normoactive bowel sounds, non-tender, non- distended and no masses Auscultation: normoactive bowel sounds Palpation: soft Extremity normal to inspection Extremity Narrative: No asymmetric edema no pitting edema negative Homans' sign bilaterally Neuro oriented x3, CN's II-XII intact bilaterally and no sensory deficits noted Sensorium / Orientation: alert Motor Exam: strength 5/5 throughout Psych Mood & Affect: anxious Skin no rashes or lesions noted and no wounds General Skin Exam: Negative for jaundice or pallor MDM MDM MDM Narrative Medical decision making narrative: Patient arrived to the ER with stable vitals. He reported chest pain that is sharp and intermittent and has low risk factor for cardiovascular disease. However as he reported a cousin who had a heart attack at a young age I did elect to perform a basic cardiac workup. An EKG was obtained that shows no sign of cardiac dysrhythmia or ischemia. A D-dimer was ordered and was normal going against PE or dissection. The patient's troponin is normal at 15 going against acute coronary syndrome or acute myocarditis. As he reported paresthesias there was concern for electrolyte abnormality but values were all within normal limits. After receiving Ativan and IV fluids he reported resolution of his symptoms. This indicates that the his symptoms are most likely anxiety driven. The patient will be started on BuSpar secondary to this. However with resolution of symptoms and an overall negative workup and low risk of cardiovascular disease there is no need for further intervention and he is otherwise safe for discharge History & Record Review Discussion w/independent historian: Patient and Significant other Lab Data Attestation: I reviewed the patient's lab results. Labs: Laboratory Results - last 24 hr 11/01/24 01:35 WBC 9.5 RBC 4.98 Hgb 15.6 Hct 44.3 MCV 89.0 MCH 31.3 MCHC 35.2 RDW Std Deviation 37.5 RDW Coeff of Ryan 11.8 Plt Count 221 MPV 10.7 Immature Gran % (Auto) 0.400 Neut % (Auto) 63.1 Lymph % (Auto) 23.3 [place] % (Auto) 12.1 H Eos % (Auto) 0.7 Baso % (Auto) 0.4 Absolute Neuts (auto) 6.0 Absolute Lymphs (auto) 2.20 Nucleated RBC % 0 D-Dimer Quant (PE/DVT) < 0.27 L Sodium 138 Potassium 4.1 Chloride 100 Carbon Dioxide 25.3 Anion Gap 12 BUN 14 Creatinine 0.88 Estim Creat Clear Calc 124.97 Est GFR (MDRD) Non-Af 120 BUN/Creatinine Ratio 15.9 Glucose 101 H Calcium 9.3 Magnesium 2.2 Troponin T High Sens 15 Radiography Diagnostic Testin view chest x-ray as interpreted by the emergency medicine physician reveals no acute infiltrate pneumothorax pleural effusion or widened mediastinum Discharge Plan Triage Chief Complaint: Chest Pain ED Provider: Chago Landers Dx/Rx/DC Orders Clinical Impression: Nonspecific chest pain, Anxiety, Bipolar disorder Instructions: Anxiety Disorders Tx, ED Chest Pain, Uncertain Cause Prescriptions: New buspirone 7.5 mg tablet 7.5 mg PO BID 30 Days Qty: 60 0RF Primary Care Provider: Naomi Navarro Referrals: Naomi Navarro NP-C [Primary Care Provider] - Activity Restrictions/Additional Instructions: Your workup today revealed no sign of cardiac/heart damage or electrolyte abnormality indicating your symptoms are most likely anxiety driven. Please take the BuSpar as directed to help control symptoms and follow-up with your family doctor to discuss further interventions. Return to the ER should you have any further concerns Print Language: Wolof Disposition Disposition: Home, Self Care
[2024-11-01 02:48] VITALS: BP 114/85; PULSE 82; RESP 20; TEMP 36.6; O2SAT 100
== END 2024-11-01 02:51 | disposition home or self-care (01) ==
PROVIDERS: Emergency Provider Emergency Medicine; PCP Nurse Practitioner Family; Visit Provider Emergency Medicine
DX: R07.89 Other chest pain (principal); F31.9 Bipolar disorder, unspecified; F17.210 Nicotine dependence, cigarettes, uncomplicated; F41.9 Anxiety disorder, unspecified; R20.2 Paresthesia of skin
CPT/HCPCS: 71046; 80048; 83735; 84484; 85025; 85379; 93005; 96361; 96374; 99283; A4216